=== PATIENT | male | born 1965 | race Caucasian/White ===

== ENCOUNTER 2020-03-01 10:43 | Outpatient (REF) | payer BC, SELFPAY ==
[2020-03-01 13:09] LABS: MANUAL DIFF FLAG NO
[2020-03-01 13:11] LABS: Basophils Percent Auto 0.6 % (0-2); Eosinophils Absolute Auto 0.2 X10*3/uL (0.0-0.4); Eosinophils Percent Auto 3.3 % (0-4); Hematocrit 44.2 % (42-52); Hemoglobin 14.5 g/dl (14.0-18.0); Imm Gran Abs Auto 0.06 X10*3/uL (0.00-0.03); Imm Gran Pct Auto 0.9 % (0.0-0.4); Lymphocytes Absolute Auto 1.8 X10*3/uL (1.2-4.9); Lymphocytes Percent Auto 27.2 % (20-40); Mean Corpuscular HGB Conc 32.8 g/dl (31.0-36.0); Mean Corpuscular Hemoglobin 30.5 pg (27.0-33.0); Mean Corpuscular Volume 93.1 fL (80-98); Mean Platelet Volume 9.6 fL (9.4-12.4); Monocytes Absolute Auto 0.6 X10*3/uL (0.1-1.2); Monocytes Percent Auto 8.5 % (2-11); Neutrophils Absolute Auto 3.9 X10*3/uL (2.0-8.3); Neutrophils Percent Auto 59.5 % (45-73); Platelet Count 312 X10*3/uL (160-400); Red Blood Count 4.75 X10*6/uL (4.60-5.80); Red Cell Distribution Width 12.6 % (11.0-16.0); White Blood Count 6.6 X10*3/uL (4.8-10.8)
[2020-03-01 13:27] LABS: Glucose Urine UA NEG (NEG); Leukocyte Esterase Urine NEG (NEG); Nitrite Urine NEG (NEG); PH 7.5 (5.0-8.0); Specific Gravity - Urine 1.015 (1.005-1.025); Urine Blood NEG (NEG); Urine Ketones NEG (NEG); Urine Protein NEG (NEG-TRACE)
[2020-03-01 13:29] LABS: Appearance Urine CLEAR; Color Urine STRAW
[2020-03-01 13:37] LABS: Alanine Aminotransferase 56 U/L (0-40); Albumin Level 4.7 g/dL (3.5-5.0); Alkaline Phosphatase 53 U/L (39-117); Anion Gap 13 (12-20); Aspartate Amino Transferase 23 U/L (5-37); Bilirubin Total 0.5 mg/dL (0.0-1.0); Blood Urea Nitrogen 19 mg/dL (9-16); Calcium 9.5 mg/dL (8.4-10.2); Carbon Dioxide 28 mmol/L (22-29); Chloride 98 mmol/L (96-108); Cholesterol 305 mg/dL; Estimated Glomerular Filt Rate > 60; Glucose Fasting 101 mg/dL (60-99); HDL Cholesterol 49 mg/dL; LDL Cholesterol Calculated 215 mg/dl; Potassium 4.3 mmol/l (3.3-5.1); Sodium 135 mmol/L (135-145); Total Protein 7.5 g/dL (6.5-8.0); Triglycerides 209 mg/dL
[2020-03-01 14:00] LABS: Prostate Specific Antigen Scr 0.63 ng/mL (<0.05-4.0)
== END 2020-03-01 10:44 | disposition home or self-care (01) ==
LOC: HO.10HDL 10:43
PROVIDERS: PCP Internal Medicine; Visit Provider Internal Medicine
DX: Z00.00 Encounter for general adult medical examination without abnormal findings (principal); I10 Essential (primary) hypertension; E78.00 Pure hypercholesterolemia, unspecified
CPT/HCPCS: 36415; 80053; 80061; 81003; 84153; 85025

== ENCOUNTER 2021-09-24 09:39 | Outpatient (REF) | payer BC, SELFPAY ==
[2021-09-24 10:33] LABS: MANUAL DIFF FLAG NO
[2021-09-24 10:48] LABS: Basophils Percent Auto 0.6 % (0-2); Eosinophils Absolute Auto 0.1 X10*3/uL (0.0-0.4); Eosinophils Percent Auto 2.4 % (0-4); Hematocrit 41.2 % (42.0-52.0); Hemoglobin 14.1 g/dl (14.0-18.0); Imm Gran Abs Auto 0.02 X10*3/uL (0.00-0.03); Imm Gran Pct Auto 0.4 % (0.0-0.4); Lymphocytes Absolute Auto 1.5 X10*3/uL (1.2-4.9); Lymphocytes Percent Auto 27.6 % (20-40); Mean Corpuscular HGB Conc 34.2 g/dl (31.0-36.0); Mean Corpuscular Hemoglobin 31.3 pg (27.0-33.0); Mean Corpuscular Volume 91.4 fL (80.0-98.0); Mean Platelet Volume 9.6 fL (9.4-12.4); Monocytes Absolute Auto 0.5 X10*3/uL (0.1-1.2); Neutrophils Absolute Auto 3.1 x10*3/uL (2.0-8.3); Platelet Count 266 X10*3/uL (160-400); Red Blood Count 4.51 X10*6/uL (4.60-5.80); Red Cell Distribution Width 12.7 % (11.0-16.0); White Blood Count 5.3 X10*3/uL (4.8-10.8)
[2021-09-24 11:02] LABS: Alanine Aminotransferase 48 U/L (0-40); Albumin Level 4.8 g/dL (3.5-5.0); Alkaline Phosphatase 54 U/L (39-117); Anion Gap 12 (12-20); Aspartate Amino Transferase 25 U/L (5-37); Bilirubin Total 0.7 mg/dL (0.0-1.0); Blood Urea Nitrogen 17 mg/dL (9-16); Calcium 9.7 mg/dL (8.4-10.2); Carbon Dioxide 28 mmol/L (22-29); Chloride 101 mmol/L (96-108); Cholesterol 166 mg/dL; Estimated Glomerular Filt Rate > 60; Glucose Fasting 119 mg/dL (60-99); HDL Cholesterol 42 mg/dL; LDL Cholesterol Calculated 107 mg/dl; Potassium 4.2 mmol/L (3.3-5.1); Sodium 137 mmol/L (135-145); Total Protein 7.4 g/dL (6.5-8.0); Triglycerides 88 mg/dL
[2021-09-24 11:23] LABS: Prostate Specific Antigen Scr 0.46 ng/mL (<0.05-4.0)
== END 2021-09-24 09:40 | disposition home or self-care (01) ==
LOC: HO.10HDL 09:39
PROVIDERS: Visit Provider Internal Medicine
DX: Z00.00 Encounter for general adult medical examination without abnormal findings (principal); Z12.5 Encounter for screening for malignant neoplasm of prostate
CPT/HCPCS: 36415; 80053; 80061; 84153; 85025

== ENCOUNTER 2022-01-29 14:21 | Inpatient (IN) | payer OTHER, BC, SELFPAY ==
--- NOTE | ~2022-01-29 | CT_ITS ---
EXAMINATION: CT abdomen pelvis wo IV con CLINICAL INFORMATION: Reason for Exam L LQ pain, rectal bleed, rule out diverticulitis COMPARISON: No prior CT available for comparison. TECHNIQUE: Multidetector volumetric imaging was performed from the superior aspect of the liver through the pubic symphysis , noncontrasted study. Sagittal and coronal reformatted images were obtained on the technologist's workstation. This CT examination was performed using dose optimization techniques as appropriate, variously including the following: *Automated exposure control *Adjustment of mA and/or kV according to patient size (this includes techniques or standardized protocols for targeted exams where dose is matched to indication/reason for exam; i.e. extremities or head) *Use of iterative reconstruction technique DLP: 775 mGy-cm FINDINGS: LOWER THORAX: Included lung bases are clear. HEPATOBILIARY: No focal hepatic lesions. No biliary ductal dilatation. GALLBLADDER: Gallbladder unremarkable. SPLEEN: Spleen is normal in size. PANCREAS: No focal mass or ductal dilatation. STOMACH AND GASTROINTESTINAL TRACT: Stomach is grossly unremarkable. There is circumferential wall thickening to the descending colon along with mild pericolic fat stranding raising suspicion for acute colitis. This could be infection, inflammatory versus less likely neoplastic. There is no evidence of obstruction, abscess, fistula or other complications at this time. The transverse colon and the sigmoid colon otherwise are normal. No CT evidence of appendicitis. ADRENALS: No adrenal nodules. KIDNEYS/URETERS: No hydronephrosis, stones or solid mass lesions. URINARY BLADDER: Partially decompressed. PELVIC VISCERA: There is a short segment of the rectum about 3 cm which appears slightly more prominent, although could be impacted fecal material, cannot rule out mucosal lesion. This may require correlation with follow-up imaging or colonoscopy. PERITONEUM: No free air or fluid. LYMPH NODES: No lymphadenopathy. VASCULAR:Abdominal aorta normal in size, no aneurysm found. BONES, ABDOMINAL WALL AND SOFT TISSUES: Age-appropriate changes of the spine and skeletal system, no destructive osteolytic or osteosclerotic bone lesion found CT/CT abdomen pelvis wo IV con IMPRESSION: *There is circumferential wall thickening of the descending colon along with mild pericolic fat stranding, raising suspicion for ACUTE COLITIS. This could be infection, inflammatory versus less likely neoplastic or ischemic, except for mild aortic calcification, there is no CT evidence of significant vascular disease, no pneumatosis.. There is no evidence of obstruction, abscess, fistula or other complications at this time. *There is a 3 cm segment of the rectum which appears somewhat prominent thickened, Perry image, although could be fecal impaction, cannot rule out rectal lesion, would recommend correlation with follow-up outpatient imaging such as barium enema or colonoscopy. (Referring physician staff is being called, to be alerted of the above findings and recommendations.) AJ
[2022-01-29 17:24] VITALS: BP 131/82; PULSE 70; RESP 16; TEMP 36.5; O2SAT 98; BMI 33.2
--- NOTE | 2022-01-29 17:35 | ED.ABDPAIN ---
HPI - Abdominal Pain General Chief Complaint: Abdominal Pain Stated Complaint: sent from Dr. acacia soler for dirviticulitis Time Seen by Provider: 01/29/22 20:30 Source: patient Mode of arrival: ambulatory Limitations: no limitations History of Present Illness HPI narrative: 56-year-old male who presents emergency department for evaluation of left lower quadrant pain which began at midnight. Pain was associated with nausea, vomiting and diarrhea. States the pain is a sharp pain which is been constant and mild to moderate intensity. Patient states that initially developed diarrhea which then turned into bright red and then dark stool. The patient states this is 1st incident of this type of pain and bloody diarrhea. He has been taking ibuprofen 4 pills in the morning once a day for lower back pain. He is not on any blood thinners. MD elicited complaint: abdominal pain Pertinent past history: none Onset (ago): hour(s) (12) Pain Consistency: constant Location: LLQ Severity: moderate Pain scale (0-10): 6 Quality: sharp Radiation: none Migration to: no migration Exacerbating factors: nothing Relieving factors: nothing Associated symptoms: nausea, vomiting and diarrhea (Bloody) Treatments prior to arrival: NSAIDs Related Data Allergies Allergy/AdvReac Type Severity Reaction Status Date / Time No Known Allergies Allergy Mild UNKNOWN Unverified 11/17/19 15:10 Review of Systems Review of Systems Yes all other systems are reviewed and are negative [facility] Past Medical History [facility] Narrative: Past medical history: Hypertension, sciatica, spinal stenosis of the neck. Social history: He denies tobacco use, he drinks alcohol once a week, he denies drug us Physical Exam ED Vital Signs: Vital Signs - 24 hr 01/29/22 17:24 Temperature 97.7 F Pulse Rate 70 Respiratory Rate 16 Blood Pressure 131/82 Pulse Oximetry 98 Oxygen Delivery Method Room Air BMI result Body Mass Index 33.2 Const General: cooperative and no acute distress Orientation/consciousness: oriented to person and oriented to place Limitations: no limitations HENMT Head: Yes normal to inspection, Yes normocephalic and Yes atraumatic Ears: external ears normal General nose exam: Normal external nose present Face and sinus: Yes normal facial exam Mouth: Normal oral and palatal mucosa present Throat: Yes posterior oropharynx normal Eyes General: appearance normal, both eyes and all related structures Pupils: Equal, round and reactive pupils present Neck Neck: Yes normal visual inspection, Yes no lymphadenopathy, Yes trachea midline and Yes supple Chest Chest palpation & inspection: normal inspection of the chest and normal palpation of entire chest wall Resp Effort & Inspection: normal respiratory effort and able to speak in complete sentences Auscultation: clear to auscultation bilaterally Cardio Rate: regular rate Rhythm: regular rhythm Heart sounds: S1 normal heart sound present, S2 normal heart sound present and no murmurs GI Inspection: Yes normal to inspection Palpation (GI): Soft to palpation, Tenderness to palpation present (GI) in the LLQ (Moderate) and no guarding Auscultation: normal bowel sounds General: Yes no CVA tenderness Back/Spine/Pelvis Back: no CVA tenderness Skin General skin exam: no rashes or lesions noted Neuro General: oriented to person and oriented to place Cranial nerves: Yes CN's II-XII intact bilaterally and Yes Equal, round and reactive pupils present Cognition (Neuro): normal cognition Motor exam (neuro): 5/5 motor strength present throughout Extrem General: Yes normal to inspection Psych Appearance: grossly normal Speech and movement: Normal speech and movement present Affect: normal affect Attitude: cooperative Thought process: Normal thought process present Thought content: Normal thought content present Course Course Course Narrative: RME: 56-year-old male who presents emergency department for evaluation of left lower quadrant pain which began at midnight. The pain is a [id number] sharp pain which was associated with nausea, vomiting and diarrhea. Patient initially developed diarrhea which then turned into bright red and then dark stool. The patient states this is 1st incident of this type of pain and bloody diarrhea. He has been taking ibuprofen 4 pills in the morning once a day for lower back pain. I ordered a CBC, CMP, PT/INR, PTT, lactic acid, lipase and urinalysis. Will obtain a CT scan of the abdomen pelvis without IV contrast. 2034: Laboratory evaluation: CBC elevated 13,800 with 74 neutrophils and 15 lymphocytes. H&H was normal 15.3 and 45.1. PT/INR and PTT were normal. CMP and lipase were normal. Radiology evaluation: CT scan of the abdomen pelvis without IV contrast, radiology reading: IMPRESSION: *There is circumferential wall thickening of the descending colon along with mild pericolic fat stranding, raising suspicion for ACUTE COLITIS. This could be infection, inflammatory versus less likely neoplastic or ischemic, except for mild aortic calcification, there is no CT evidence of significant vascular disease, no pneumatosis.. There is no evidence of obstruction, abscess, fistula or other complications at this time. *There is a 3 cm segment of the rectum which appears somewhat prominent thickened, Perry image, although could be fecal impaction, cannot rule out rectal lesion, would recommend correlation with follow-up outpatient imaging such as barium enema or colonoscopy. (Referring physician staff is being called, to be alerted of the above findings and recommendations.) AJ Dictated By:Antonino Gray MDSigned By:<Electronically signed by Antonino Gray MD in OV> Given the patient's CT scan finding I will treat the patient for possible infectious colitis with Levaquin 750 mg IV and Flagyl 500 mg IV. Patient was also ordered to get morphine 4 mg IV and normal saline x1 L. I will discuss admission with the covering hospitalist. MDM - Abdominal Pain Lab Data Result diagrams: 01/29/22 17:56 01/29/22 17:56 Labs: Lab Results 01/29/22 01/29/22 01/29/22 Range/Units 17:56 17:56 17:56 WBC 13.8 H (4.8-10.8) X10*3/uL RBC 5.00 (4.60-5.80) X10*6/uL Hgb 15.3 (14.0-18.0) g/dl Hct 45.1 (42.0-52.0) % MCV 90.2 (80.0-98.0) fL MCH 30.6 (27.0-33.0) pg MCHC 33.9 (31.0-36.0) g/dl RDW 12.6 (11.0-16.0) % Plt Count 273 (160-400) X10*3/uL MPV 9.3 L (9.4-12.4) fL Immature Gran % (Auto) 1.3 H (0.0-0.4) % Neut % (Auto) 74.7 H (45-73) % Lymph % (Auto) 15.7 L (20-40) % [place] % (Auto) 6.7 (2-11) % Eos % (Auto) 1.2 (0-4) % Baso % (Auto) 0.4 (0-2) % Lymph # (Auto) 2.2 (1.2-4.9) X10*3/uL [place] # (Auto) 0.9 (0.1-1.2) X10*3/uL Eos # (Auto) 0.2 (0.0-0.4) X10*3/uL Baso # (Auto) 0.1 (0.0-0.2) X10*3/uL Abs Immat Gran (auto) 0.18 H (0.00-0.03) X10*3/uL Absolute Neuts (auto) 10.3 H (2.0-8.3) x10*3/uL Absolute Nucleated RBC 0.000 (0.0-0.012) X10*3/uL Nucleated RBC % (auto) 0.0 (0.0-0.2) /100WBC PT 11.3 (10.0-13.1) SEC INR 1.0 (0.9-1.1) APTT 31.1 (26.0-36.4) SEC Sodium 136 (135-145) mmol/L Potassium 3.7 (3.3-5.1) mmol/L Chloride 97 (96-108) mmol/L Carbon Dioxide 28 (22-29) mmol/L Anion Gap 15 (12-20) BUN 16 (9-16) mg/dL Creatinine 0.80 (0.5-1.4) mg/dL Estim Creat Clear Calc 124.2 Estimated GFR > 60 Random Glucose 96 (60-115) mg/dL Lactic Acid (0.5-2.0) mmol/L Calcium 10.1 (8.4-10.2) mg/dL Total Bilirubin 0.8 (0.0-1.0) mg/dL AST 18 (5-37) U/L ALT 35 (0-40) U/L Alkaline Phosphatase 60 (39-117) U/L Total Protein 7.6 (6.5-8.0) g/dL Albumin 4.9 (3.5-5.0) g/dL Lipase 20 (8-78) U/L 01/29/22 Range/Units 17:56 WBC (4.8-10.8) X10*3/uL RBC (4.60-5.80) X10*6/uL Hgb (14.0-18.0) g/dl Hct (42.0-52.0) % MCV (80.0-98.0) fL MCH (27.0-33.0) pg MCHC (31.0-36.0) g/dl RDW (11.0-16.0) % Plt Count (160-400) X10*3/uL MPV (9.4-12.4) fL Immature Gran % (Auto) (0.0-0.4) % Neut % (Auto) (45-73) % Lymph % (Auto) (20-40) % [place] % (Auto) (2-11) % Eos % (Auto) (0-4) % Baso % (Auto) (0-2) % Lymph # (Auto) (1.2-4.9) X10*3/uL [place] # (Auto) (0.1-1.2) X10*3/uL Eos # (Auto) (0.0-0.4) X10*3/uL Baso # (Auto) (0.0-0.2) X10*3/uL Abs Immat Gran (auto) (0.00-0.03) X10*3/uL Absolute Neuts (auto) (2.0-8.3) x10*3/uL Absolute Nucleated RBC (0.0-0.012) X10*3/uL Nucleated RBC % (auto) (0.0-0.2) /100WBC PT (10.0-13.1) SEC INR (0.9-1.1) APTT (26.0-36.4) SEC Sodium (135-145) mmol/L Potassium (3.3-5.1) mmol/L Chloride (96-108) mmol/L Carbon Dioxide (22-29) mmol/L Anion Gap (12-20) BUN (9-16) mg/dL Creatinine (0.5-1.4) mg/dL Estim Creat Clear Calc Estimated GFR Random Glucose (60-115) mg/dL Lactic Acid 1.4 (0.5-2.0) mmol/L Calcium (8.4-10.2) mg/dL Total Bilirubin (0.0-1.0) mg/dL AST (5-37) U/L ALT (0-40) U/L Alkaline Phosphatase (39-117) U/L Total Protein (6.5-8.0) g/dL Albumin (3.5-5.0) g/dL Lipase (8-78) U/L Discharge Plan Discharge Clinical Impression: Acute colitis
[2022-01-29 18:01] LABS: MANUAL DIFF FLAG NO
[2022-01-29 18:13] LABS: Basophils Absolute Auto 0.1 X10*3/uL (0.0-0.2); Basophils Percent Auto 0.4 % (0-2); Eosinophils Absolute Auto 0.2 X10*3/uL (0.0-0.4); Eosinophils Percent Auto 1.2 % (0-4); Hematocrit 45.1 % (42.0-52.0); Hemoglobin 15.3 g/dl (14.0-18.0); Imm Gran Abs Auto 0.18 X10*3/uL (0.00-0.03); Imm Gran Pct Auto 1.3 % (0.0-0.4); Lymphocytes Absolute Auto 2.2 X10*3/uL (1.2-4.9); Lymphocytes Percent Auto 15.7 % (20-40); Mean Corpuscular HGB Conc 33.9 g/dl (31.0-36.0); Mean Corpuscular Hemoglobin 30.6 pg (27.0-33.0); Mean Corpuscular Volume 90.2 fL (80.0-98.0); Mean Platelet Volume 9.3 fL (9.4-12.4); Monocytes Absolute Auto 0.9 X10*3/uL (0.1-1.2); Monocytes Percent Auto 6.7 % (2-11); Neutrophils Absolute Auto 10.3 x10*3/uL (2.0-8.3); Neutrophils Percent Auto 74.7 % (45-73); Platelet Count 273 X10*3/uL (160-400); Red Cell Distribution Width 12.6 % (11.0-16.0); White Blood Count 13.8 X10*3/uL (4.8-10.8)
[2022-01-29 18:16] LABS: Prothrombin Time 11.3 SEC (10.0-13.1)
[2022-01-29 18:18] LABS: Lactic Acid 1.4 mmol/L (0.5-2.0)
[2022-01-29 18:19] LABS: Partial Thromboplastin Time 31.1 SEC (26.0-36.4)
[2022-01-29 18:21] LABS: Alanine Aminotransferase 35 U/L (0-40); Albumin Level 4.9 g/dL (3.5-5.0); Alkaline Phosphatase 60 U/L (39-117); Anion Gap 15 (12-20); Aspartate Amino Transferase 18 U/L (5-37); Bilirubin Total 0.8 mg/dL (0.0-1.0); Blood Urea Nitrogen 16 mg/dL (9-16); Calcium 10.1 mg/dL (8.4-10.2); Carbon Dioxide 28 mmol/L (22-29); Chloride 97 mmol/L (96-108); Creatinine Clr Calc Pharmacy 124.2; Estimated Glomerular Filt Rate > 60; Glucose Random 96 mg/dL (60-115); Lipase 20 U/L (8-78); Potassium 3.7 mmol/L (3.3-5.1); Sodium 136 mmol/L (135-145); Total Protein 7.6 g/dL (6.5-8.0)
--- OUTSIDE RECORDS SUMMARY | 2022-01-29 20:59 | XMS_ITS ---
:1965 Author Organization Department [facility] Address [address] [place] [address] Support Name Relationship Address Phone BRIAN FLORES Unavailable [address] [place] [address] [place] [address] BRIAN FLORES Unavailable [address] [place] [address] Insurance Providers: All historical and current Section Date Range: From patient's date of to the date document was created.This section includes the names of all active insurance providers for the patient. Insurance Type of Plan Start of End of Group Member Insurance Policy P atient's Provider Coverage Name Policy Policy Number ID Provider's Fleming's Relationship Coverage Coverage Telephone Name to Policy Number Fleming [place] PREFERRED BASIC Mar 14 [id number] [phone] MEGAN FLORES PATIENT FEP PROVIDER FAMIL [phone] OTHY ORGANIZAT Y ION (PPO) [place]-F PRESCRIPT FEP Mar 02 [id number] [phone] STEPHY MEGAN THOMAS PATIENT EP BCBS ION CAREM [phone] OTHY ARK Selected Encounter This section includes the information on record at ID for the Encounter. Date/Time Encounter Type Encounter Description Reason Provider Source Jan 02, 2022 02:08 Outpatient Encounter ADMIN PAT ACTIVTIES PM (MASNONCT) IHE Encounter Template Text not used by ID Plan of Treatment: Future Appointments (+ 6 months) and Future Tests (+/- 45 days) The Plan of Treatment section includes future care activities for the patient from all VA treatmentfacilities. This section includes future appointments and future orders which are active, pending orscheduled.Future Appointments This section includes appointments that were scheduled to occur 6 months from the date of the Encounter, up to a maximum of 20 appointments. The data comes from all [facility]. Appointment Date/Time Appointment Type Appointment Facili ty Name Jan 30, 2022 11:00 AM AMBUL[facility]ORY - [facility]INE [facility] Active, Pending, and Scheduled Orders This section includes a listing of several types of active, pending, and scheduled orders, including clinic medications orders, diagnostic test orders, procedure orders and consult orders; where the start date of the order is 45 days before the date of the Encounter or 45 days after the date of the Encounter. The data comes from all [facility]. Test Date/Time Test Type Test Details Facility Name Jan 20, 2022 12:00 AM Laboratory - CBC BLOOD (LAV[facility]BLOOD) [facility] Jan 20, 2022 12:00 AM Laboratory - BASIC METABOLIC PANEL [facility] Chemistry Order (fasting) BLOOD [facility] (SST-SERUM) Jan 20, 2022 12:00 AM Laboratory - LIPID PANEL FASTING [facility] Chemistry Order BLOOD (SST[facility]SERUM[facility] Jan 20, 2022 12:00 AM Laboratory - LIVER FUNCTION BLOOD [facility] (SST[facility]UM[facility] Jan 20, 2022 12:00 AM Laboratory - HEMOGLOBIN A1C PANEL [facility] Chemistry Order BLOOD (LAV-BLOOD) [facility] Jan 20, 2022 12:00 AM Laboratory - TSH BLOOD (SST-SERUM) [facility] Chemistry Order [place] [facility] Jan 20, 2022 12:00 AM Laboratory - THYROID T4 FREE(FT4) [facility] Order BLOOD (SST-SERUM) [facility] Social History: Smoking Status (Most current) and Tobacco Use (All prior to encounter date) This section includes the most current, and the historical, smoking and tobacco-related health factors from the ID facility where the Encounter took place.Current Smoking Status This section includes the most current smoking, or tobacco-related health factor, from the ID facility where the Encounter took place. Date/Time Current Smoking Status Comment Facility May 14, 2020 03:00 PM ID-TOBACCO FORMER USER [facility] Tobacco Use History This section includes a history of the smoking, or tobacco- related health factors, that were collected on or before the date of the Encounter. The data comes from the ID facility where the Encounter took place. Date/Time Smoking Status/Tobacco Use Comment Nalini mayberry May 14, 2020 03:00 PM VA-TOBACCO QUIT 5 TO < 15 YRS [facility] Encounter Notes: All associated encounter notes This section contains the clinical notes associated to the Encounter. Date/Time Encounter Note(s) Provider Source Jan 02, 2022 02:08 PM ADMINISTRATIVE NOTE: ELIZABETH WAYNE [facility] LOCAL TITLE: CCC: SCHEDULING ADMINISTRATION [facility] STANDARD TITLE: ADMINISTRATIVE NOTE DATE OF NOTE: JAN 02, 2022@14:08:43 ENTRY DATE: JAN 02, 2022@14:17:55 AUTHOR: ELIZABETH WAYNE EXP COSIGNER: URGENCY: STATUS: COMPLETED CCC: SCHEDULING ADMINISTRATION Has ADDENDA Type of call: SCHEDULING. PCMM Provider Info: LOCAL - [facility] ([id number]) PACT: NO PACT 7 (Focus: Primary Care Only) Primary Care Provider: DEBRA MOSHER PH ONE:[phone] Take Down Sorter: CLINTON CRESPO PHONE:[phone] Clinical Associate: AMOS MONTERO PHONE:[phone] Glass Silverer: MONIQUE VERMA PH ONE: Clinical POC: Take Down Sorter CLINTON CRESPO PHONE:[phone] Administrative POC: Glass Silverer MOINQUE VERMA PHONE: *PATIENT called in for PAYTON FLORES ([id number]) . The following identifiers were used to verify th is patient: SSN. Contact Caller Response: ADM CALL RESOLVED Caller Area: *[place] Comments: Patient is calling stating that he just saw his PCP Iron Ledbetter at [facility] and was wondering if he was still needing to be seen. Please call him back at Author: ELIZABETH WAYNE Evaluation/Management Code: HC PRO PHONE CALL 5- 10 MIN ([phone]). Starting at: 01/02/2022 @ 2:08:43 PM Ending at: 01/02/2022 @ 2:17:15 PM Length: 8 minutes. Chief Complaint: Not applicable to call. Class Code: Other specified counseling. /es/ ELIZABETH WAYNE Signed: 01/02/2022 14:17 Receipt Acknowledged By: * AWAITING SIGNATURE * AMOS MONTERO 01/02/2022 14:39 /rowena/ MERRILL HARRELL ADVANCED BRAIDED RUG MAKER 01/02/2022 ADDENDUM STATUS: COMPLETED AMSA CALLED AND LEFT VOICEMAIL REQUESTING A CALL BACK. /rowena/ MERRILL HARRELL ADVANCED BRAIDED RUG MAKER Signed: 01/02/2022 14:40
--- OUTSIDE RECORDS SUMMARY | 2022-01-29 20:59 | XMS_ITS ---
:1965 Author Organization [facility] Address [address] [address] Care Team Providers Name Role Phone NO MD, LMKyle Primary Care Physician Unavailable Encounter [facility] Financial Number Sravani Freehold [id number] Date(s): 05/15/21 - 05/17/[address] [address] Discharge Disposition: Home Social History Social History Type Response
--- OUTSIDE RECORDS SUMMARY | 2022-01-29 20:59 | XMS_ITS ---
:1965 Author Organization Department [facility] Address [address] [place] [address] Support Name Relationship Address Phone BRIAN FLORES Unavailable [address] [place] [address] [place] [address] BRIAN FLORES Unavailable [address] [facility] [place] [address] Insurance Providers: All historical and current Section [...] Fleming BC[place] PREFERRED BASIC Mar 14 [id number] [phone] MEGAN FLORES PATIENT FEP PROVIDER FAMIL 2001 [id number] OTHY ORGANIZAT Y ION (PPO) [employer]-F PRESCRIPT FEP Mar 02 [id number] [phone] STEPHY MEGAN THOMSA PATIENT EP BCBS ION CAREM 2010 0 [phone] 1 OTHY ARK Selected Encounter This section includes the information on record at NE for the Encounter. Date/Time Encounter Type Encounter Description Reason Provider Source Jan 02, 2022 09:54 Outpatient Encounter PRIMARY CARE/MEDICINE AM IHE Encounter Template Text not used by NE Plan of Treatment: Future Appointments (+ 6 [...] 20 appointments. The data comes from all [facility]. Appointment Date/Time Appointment Type Appointment Facili ty Name Jan 30, 2022 11:00 AM AMBULATORY - [facility]IC[facility] Active, Pending, and Scheduled Orders This section includes a listing of several types of active, pending, and scheduled orders, including clinic medications orders, diagnostic test orders, procedure orders and consult orders; where the start date of the order is 45 days before the date of the Encounter or 45 days after the date of the Encounter. The data comes from all [facility]. Test Date/Time Test Type Test Details Facility Name Jan 20, 2022 12:00 AM Laboratory - CBC BLOOD ([facility]BLOOD) [facility] Order SP [facility] Jan 20, 2022 12:00 AM Laboratory - BASIC METABOLIC PANEL [facility] Chemistry [facility] ([facility]ing[facility] (SST-SERUM) Jan 20, 2022 12:00 AM Laboratory - LIPID PANEL [facility] Chemistry Order BLOOD (SST-SERUM) [facility] Jan 20, 2022 12:00 AM Laboratory - LIVER FUNCTION [facility]OD [facility] Chemistry Order (SST-SERUM) [facility] Jan 20, 2022 12:00 AM Laboratory - HEMOGLOBIN A1C PANEL [facility] Chemistry Order BLOOD (LAV-BLOOD) [facility] Jan 20, 2022 12:00 AM Laboratory - TSH BLOOD (SST-SERUM) [facility] Chemistry [facility] Jan 20, 2022 12:00 AM Laboratory - THYROID T4 [facility](FT4[facility] Chemistry Order BLOOD (SST-SERUM) [facility] Social History: Smoking Status (Most current) and Tobacco Use (All prior to encounter date) This section includes the most current, and the historical, smoking and tobacco-related health factors from the NE facility where the Encounter took place.Current Smoking Status This section includes the most current smoking, or tobacco-related health factor, from the NE facility where the Encounter took place. Date/Time Current Smoking Status Comment Facility May 14, 2020 03:00 PM VA-TOBACCO FORMER USER [facility] Tobacco Use History This section includes a history of the smoking, or tobacco- related health factors, that were collected on or before the date of the Encounter. The data comes from the NE facility where the Encounter took place. Date/Time Smoking Status/Tobacco Use Comment Nalini mayberry May 14, 2020 03:00 PM [facility]CO [facility]IT 5 [facility] < [facility] Encounter Notes: All associated encounter notes This section contains the clinical notes associated to the Encounter. Date/Time Encounter Note(s) Provider Source Jan 02, 2022 09:54 AM ADMINISTRATIVE NOTE: MONIQUE VERMA [facility] LOCAL TITLE: ADMINISTRATIVE RECALL NOTE [facility] STANDARD TITLE: ADMINISTRATIVE NOTE DATE OF NOTE: JAN 02, 2022@09:54 ENTRY DATE: JAN 02, 2022@09:54:19 AUTHOR: MONIQUE VERMA EXP COSIGNER: URGENCY: STATUS: COMPLETED PTCSCH Unable to contact patient: Attempts to contact: 1st attempt: Left voicemail 2nd attempt: Letter mailed Disposition onJan 16, 2022 3rd attempt: 4th attempt: /rowena/ MERRILL HARRELL ADVANCED FERMENTATION ENGINEER Signed: 01/02/2022 09:54 Jan 02, 2022 09:54 AM LETTERS: MONIQUE VERMA [facility] W STRN LOCAL TITLE: PATIENT LETTER (T) [facility] STANDARD TITLE: LETTERS DATE OF NOTE: JAN 02, 2022@09:54 ENTRY DATE: JAN 02, 2022@09:54:55 AUTHOR: MONIQUE VERMA EXP COSIGNER: URGENCY: STATUS: COMPLETED DEPARTMENT OF [facility] Toll Free Number Primary Care Telephone Assistance can be reached at extension [phone] [facility] scheduling can be reac hed at extension [phone] [facility] scheduling can be natasha ched at ext [phone] JAN 02, 2022 PAYTON FLORES [address] [place] [id number] Dear PAYTON FLORES Thank you for choosing the [facility] ([place]) [facility] as your primary choice for health care. We want to assure you we are doing everything possible to sched e Veterans for their [place] medical care appointments. Our records indicate you are due for an appointm ent in PRIMARY CARE. We value you as a patient, and are concerned abo ut your overall health. Future Clinic Visits No data available Patients are encouraged to see their Primary Car e Doctor to maintain your health care needs. If you would like to be seen, please contact [facility] at ([phone] ext [phone] or [phone]) to sc hedule an appointment. We hope to hear from you within 14 days of recei pt of this letter to schedule your follow up appointment. If you have any further questions or would like more information regarding [place] health care benefits, please call toll free at 2 [phone]), visit the [place] website at [email or web address]/healthbenefit [email or web address], or contact your local [place] Medical Center. Thank you for your service to our nation, and we look forward to hearing from you soon. Sincerely, [facility] em Sincerely, Your Primary Care Team [facility] [address] [facility] [address] [place] [address] [place] [address] [phone] [facility] [address] [place] [address] [place] [address] [phone] [facility] [address] [facility],[address] [place] [address] [place] [address]
--- OUTSIDE RECORDS SUMMARY | 2022-01-29 20:59 | XMS_ITS ---
:1965 Author Organization Department [facility] Address [address] [place] [id number] Support Name Relationship Address Phone BRIAN FLORES Unavailable [address] [address] BRIAN FLORES Unavailable [address] [address] Insurance Providers: All historical and current Section [...] [place] PREFERRED BASIC Mar 14 [id number] [phone] MEGAN FLORES PATIENT FEP PROVIDER FAMIL [phone] OTHY ORGANIZAT Y ION (PPO) CAREMARK-F PRESCRIPT FEP Mar 02 [id number] [phone] STEPHY MEGAN THOMAS PATIENT EP BCBS ION CAREM [phone] OTHY ARK Selected Encounter This section includes the information on record at [facility] for the Encounter. Date/Time Encounter Type Encounter Description Reason Provider Source May 13, 2021 07:50 Outpatient Encounter PRIMARY CARE/MEDICINE AM IHE Encounter Template Text not used by [facility] Social History: Smoking Status (Most current) and Tobacco Use (All prior to encounter date) This section includes the most current, and the historical, smoking and tobacco-related health factors from the [facility] facility where the Encounter took place.Current Smoking Status This section includes the most current smoking, or tobacco-related health factor, from the [facility] facility where the Encounter took place. Date/Time Current Smoking Status Comment Facility May 14, 2020 03:00 PM VA-TOBACCO FORMER USER [facility] Tobacco Use History This section includes a history of the smoking, or tobacco- related health factors, that were collected on or before the date of the Encounter. The data comes from the [facility] facility where the Encounter took place. Date/Time Smoking Status/Tobacco Use Comment Nalini mayberry May 14, 2020 03:00 PM VA-TOBACCO QUIT 5 TO < 15 YRS [facility] Encounter Notes: All associated encounter notes This section contains the clinical notes associated to the Encounter. Date/Time Encounter Note(s) Provider Source May 13, 2021 07:50 AM MEDICATION MGT NOTE: TOM GUERRIER [facility] LOCAL TITLE: OUTPATIENT MEDICATION REQUEST [facility] STANDARD TITLE: MEDICATION MGT NOTE DATE OF NOTE: MAY 13, 2021@07:50 ENTRY DATE: MAY 13, 2021@07:50:30 AUTHOR: TOM GUERRIER EXP COSIGNER: URGENCY: STATUS: COMPLETED OUTPATIENT MEDICATION REQUEST Has ADDENDA * Medication Request Date of Request: Apr Is this a New Medication? No Active and Recently Outpatient Medicatio ns (including Supplies): Active Outpatient Medications Status 1) SILDENAFIL CITRATE 50MG TAB TAKE ONE TABLET B Y MOUTH ACTIVE ONCE DAILY NEEDED TAKE 1 HOUR PRIOR TO SEX UAL ACTIVITY Active Non-VA Medications Status 1) Non-VA HCTZ 12.5/LISINOPRIL 10MG TAB 2 TABLET S BY ACTIVE MOUTH TWICE DAILY 2) Non-VA LORATADINE 10MG TAB 10MG BY MOUTH ONCE DAILY ACTIVE 3 Total Medications The following actions were performed: Placed in Provider Folder SILDENAFIL TAB 50MG TAKE ONE TABLET BY MOUTH ONCE DAILY NEEDED * *TAKE 1 HOUR PRIOR TO SEXUAL ACTIVITY *Please let patient know lala t this request may take up to 72 hours to process.* /rowena/ TOM GUERRIER RN MSN REGISTERED NURSE Signed: 05/13/2021 07:51 Receipt Acknowledged By: * AWAITING SIGNATURE * DEBRA MOSHER 05/23/2021 ADDENDUM STATUS: COMPLETED FORWARD TO PCP /es/ TOM GUERRIER RN MSN REGISTERED NURSE Signed: 05/23/2021 07:54 Receipt Acknowledged By: * AWAITING SIGNATURE * DEBRA MOSHER
--- OUTSIDE RECORDS SUMMARY | 2022-01-29 20:59 | XMS_ITS ---
:1965 Author Care Team Providers Name Role Phone SHAHIDA HSU MD Primary Care Provider [phone] Allergies Code Code System Name Reaction Severity Status Onset NKDA ? Medications Name Status Start Date Stop Date ? ? hydrochlorothiazide Active ? Not availabl e lisinopril Active ? Not available Problems None recorded. Procedures None recorded. Results Lab Results Date Name Specimen Result Interpretation Description Value Range Status Address ? 01/31/2020 SARS CoV 2 RNA ? Covid-19, [place] ? ? Final [facility] Reference (COVID-19), QL, L aboratories: [address]-PCR, [address], Respiratory [place] Specimen Past Encounters None recorded. Social History Tobacco Smoking Status Former Smoker Vaccine List None recorded. Plan of Care Reminders Provider Appointments None recorded. ? ? Lab None recorded. ? ? Referral None recorded. ? ? Procedures None recorded. ? ? Surgeries None recorded. ? ? Imaging None recorded. ? ? Vitals None recorded.
--- OUTSIDE RECORDS SUMMARY | 2022-01-29 20:59 | XMS_ITS ---
:1965 Author Organization Department [facility] Address [address] [place] [address] Support Name Relationship Address Phone BRIAN FLORES Unavailable [address] [place] [address] [place] [address] BRIAN FLORES Unavailable [address] [facility] [place] [address] Insurance Providers: All historical and current Section [...] Fleming [place] PREFERRED BASIC Mar 14 [id number] [phone] MEGAN FLORES PATIENT FEP PROVIDER FAMIL [phone] OTHY ORGANIZAT Y ION (PPO) CAREMARK-F PRESCRIPT FEP Mar 02 [id number] [phone] STEPHY MEGAN THOMAS PATIENT EP BCBS ION CAREM [phone] 1 OTHY ARK Selected Encounter This section includes the information on record at [facility] for the Encounter. Date/Time Encounter Type Encounter Description Reason Provider Source Jan 15, 2022 11:37 Outpatient Encounter PRIMARY CARE/MEDICINE AM I[facility] Encounter Template Text not used by [facility] Plan of Treatment: Future Appointments (+ 6 [...] 20 appointments. The data comes from all [facility]. Appointment Date/Time Appointment Type Appointment Facili ty Name Jan 30, 2022 11:00 AM [facility] Active, Pending, and Scheduled Orders This section includes a listing of several types of active, pending, and scheduled orders, including clinic medications orders, diagnostic test orders, procedure orders and consult orders; where the start date of the order is 45 days before the date of the Encounter or 45 days after the date of the Encounter. The data comes from all [facility]. Test Date/Time Test Type Test Details Facility Name Jan 20, 2022 12:00 AM Laboratory - CBC BLOOD (LAV[facility]BLOOD) [facility] Order SP [facility] Jan 20, 2022 12:00 AM Laboratory - BASIC METABOLIC PANEL [facility] Chemistry Order (fasting) [facility] (SST-SERUM) Jan 20, 2022 12:00 AM Laboratory - LIPID PANEL [facility] Chemistry Order BLOOD (SST-SERUM) [facility] Jan 20, 2022 12:00 AM Laboratory - LIVER FUNCTION BLOOD [facility] [place] Chemistry Order (SST-SERUM) [facility] Jan 20, 2022 12:00 AM Laboratory - HEMOGLOBIN A1C PANEL [facility] T[facility] Chemistry Order BLOOD (LAV-BLOOD) [facility] Jan 20, 2022 12:00 AM Laboratory - TSH BLOOD (SST-SERUM) [facility] Chemistry Order [facility] Jan 20, 2022 12:00 AM Laboratory - THYROID T4 FREE(FT4) [facility] Order BLOOD (SST-SERUM) [facility] Social History: Smoking Status (Most current) and Tobacco Use (All prior to encounter date) This section includes the most current, and the historical, smoking and tobacco-related health factors from the [facility] facility where the Encounter took place.Current Smoking Status This section includes the most current smoking, or tobacco-related health factor, from the [facility] facility where the Encounter took place. Date/Time Current Smoking Status Comment Facility May 14, 2020 03:00 PM VA-TOBACCO FORMER USER [facility] Tobacco Use History This section includes a history of the smoking, or tobacco- related health factors, that were collected on or before the date of the Encounter. The data comes from the [facility] facility where the Encounter took place. Date/Time Smoking Status/Tobacco Use Comment Nalini mayberry May 14, 2020 03:00 PM [facility]-TOBACCO QUIT 5 TO < 15 YRS [facility] Encounter Notes: All associated encounter notes This section contains the clinical notes associated to the Encounter. Date/Time Encounter Note(s) Provider Source Jan 15, 2022 11:37 AM ADMINISTRATIVE NOTE: POLO MATHIAS [facility] LOCAL TITLE: ADMINISTRATIVE NOTE [facility] STANDARD TITLE: ADMINISTRATIVE NOTE DATE OF NOTE: JAN 15, 2022@11:37 ENTRY DATE: JAN 15, 2022@11:37:46 AUTHOR: POLO MATHIAS EXP COSIGNER: URGENCY: STATUS: COMPLETED ADMINISTRATIVE NOTE Has ADDENDA per caren calling to schedule a routine follow up appt. please call /rowena/ POLO MATHIAS LEAD FORMULA MIXER Signed: 01/15/2022 11:38 Receipt Acknowledged By: 01/15/2022 12:47 /rowena/ MERRILL HARRELL ADVANCED FORMULA MIXER 01/15/2022 ADDENDUM STATUS: COMPLETED SPOKE TO SCHEDULED FOR JANUARY 30, 2022. /rowena/ MERRILL HARRELL ADVANCED FORMULA MIXER Signed: 01/15/2022 12:51
--- OUTSIDE RECORDS SUMMARY | 2022-01-29 20:59 | XMS_ITS | Continuity of Care Document ---
:1965 Author Organization [facility] Care Team Providers Name Role Phone [facility] Unavailable Unavailable Problems Combined list of problems from Department of Defense and Veterans Affairs facilities. It does not include entries that were removed or entered in error. Problem Status Onset Problem Type Date of Comments Source Date Resolution Chronic Active Condition [facility] Post-Traumatic [facility] Stress Disorder [facility] [id number]) Degenerative Active Condition May 14 [facility] arthritis [place] Entered By: SYD MARIA Comment: of the spine Erectile Active Condition [facility] Dysfunction ([facility] [place] [id number]) [facility] HTN - Hypertension Active Condition V A CN[facility]L [facility] ([facility] [id number]) [facility] Hyperlipidemia Active Condition [facility] TRL [facility] ([facility] [id number]) [facility] Medications Combined list of outpatient medications from Department of Defense and Veterans Affairs facilities. Medications provided include 1) outpatient medications from the last 15 months, and 2) patient-reported medications. Medication Details Route Status Patient Prescription Prescription Last Ordering Order Source Instructions Expires Number Dispense Provider Date Date HYDROCHLORO TAKE TWO ORAL ACTIVE [place], [place] THIAZIDE TABLETS DEBRA Acosta 2020 CNTRL 12.5MG/NAZ BY MOUTH [facility] NOPRIL 10MG TWICE [place] TAB DAILY [facility] LORATADINE TAKE ONE ORAL ACTIVE [place], [place] 10MG TAB TABLET DEBRA Acosta 2020 CN[facility] BY MOUTH [facility] ONCE [place] DAILY [facility] sildenafiL TAKE ONE Active 05/24/2022 [id number] SULROGERV AN, 12/09/ Northam 50 MG ORAL TABLET 2 DEBRA Acosta 2021 pton TAB BY MOUTH [facility] ONCE DAILY NEEDED TAKE 1 HOUR PRIOR TO SEXUAL ACTIVITY sildenafiL TAKE ONE 05/15/2021 [id number] SULLI DIONNE, 03/16/ Northam 50 MG ORAL TABLET 2 DEBRA Acosta 2021 [place] TAB BY MOUTH [facility] ONCE DAILY NEEDED TAKE 1 HOUR PRIOR TO SEXUAL ACTIVITY SILDENAFIL TAKE ONE ORAL ACTIVE 05/24/2022 [id number] LUX TRUONG, 05/29/ [place] CITRATE TABLET 2 DEBRA Acosta 2021 CNTRL 50MG TAB BY MOUTH [facility] ONCE [place] DAILY [facility] TAKE 1 HOUR PRIOR TO SEXUAL ACTIVITY SILDENAFIL TAKE ONE ORAL DISCONT 05/15/2021 [id number] LUX TRUONG, 05/14/ [facility] CITRATE TABLET INUED 2 DEBRA Acosta 2020 CNTRL 50MG TAB BY MOUTH [facility] ONCE [place] DAILY [facility] TAKE 1 HOUR PRIOR TO SEXUAL ACTIVITY Immunizations Combined list of available immunizations from the Department of Defense and Veterans Affairs facilities. Immunization Series Date Administered Site Reaction Lot [facility] atus Comments Source Given By Number Code Decaler INFLUENZA, complet [facility] UNSPECIFIED 2019 ed CN TRL FORMULATION WS TRN [place] [facility] Encounters Combined list of: 1) Encounters from Department of Veterans Affairs facilities going back up to the last 18 months. 2) Encounters from the Department of Defense facilities going back up to 280 months. Location Location Encounter Encounter Reason Attending ADM DC Stat us Disposition Source Details Type Number For Provider Date Date Visit Outpatient [id number] 12/17 [facility] [id number] [facility] [facility] Outpatient [id number] 05/13 [facility] Encounter [id number] [facility] [place] [facility] Outpatient [id number] 01/02 [facility] Encounter [id number] [facility] [place] [facility] Outpatient [id number] 01/02 [facility] Encounter [id number] [facility] [place] [facility] Outpatient [id number] 01/15 [facility] Encounter [id number] [facility] [place] [facility] Social History Combined list of available smoking, tobacco, and other social history [facility]. Social History Type Response Date Comment Source Tobacco smoking VA-TOBACCO FORMER 05/14/2020 [facility] status [place] [facility] History of tobacco VA-TOBACCO QUIT 5 TO 05/14/2020 V A CNTRL [facility] use < [address] [place] [facility] This section is an DoD empty social history section. Plan of Care List of future care activities from Department of Veterans Affairs facilities. Additional future care activities may be listed in the Assessment and Plan section. Date/Time Care Activity Care Activity Detail Facility 01/30/2022 AMBULATORY - MEDICINE AMBULATORY - MEDICINE [place] [facility] [place] [facility]
--- NOTE | 2022-01-29 21:47 | PHA.MEDREC ---
Pharmacy Consult ? Medication Reconciliation Pharmacy has completed the medication reconciliation. Pt states that he takes lisinopril/hctz 20/25 daily not bid
[2022-01-29] MEDS: 0.9 % Sodium Chloride 1,000 ML 999 ML IV (21:55)
[2022-01-29] MEDS: levoFLOXacin/D5W 750 MG/150 ML PIGGYBACK 100 MG IV (21:56)
[2022-01-29] MEDS: metroNIDAZOLE/NS 500 MG/100 ML PIGGYBACK 100 MG IV (21:56)
--- NOTE | 2022-01-29 22:15 | PM.IMHP ---
History of Present Illness Date of Service: 01/29/22 Chief Complaint: abdominal pain 56-year-old male with past medical history of hypertension, as well as hyperlipidemia presents to the hospital with complaints of abdominal pain x1 day. Patient reports that he started experiencing left lower quadrant pain the night prior to presentation, pain 5/10, nonradiating, intermittent, associated with multiple episodes of bloody bowel movements. Patient initially reports that he had soft stools with bright blood, followed by multiple episodes of blood per rectum with no stool just mucus. Patient denies any previous similar episode. Denies any fever or chills. No nausea or vomiting, no recent illness. Denies any chest pain, no shortness of breath. No lower extremity edema. Patient reports that he had a colonoscopy about 3 years ago with normal results. He does report a family history of inflammatory bowel disease in his grandmother and aunt. On arrival to the ED patient hemodynamically stable with no significant abnormal vitals Labs are significant for WBC count of 13.8, labs otherwise unremarkable Abdominal pelvic CT shows circumferential wall thickening of the descending colon along with mild pericolic fat stranding raising suspicion for acute colitis. Infectious versus inflammatory less likely neoplastic or ischemic. There is no CT evidence of vascular disease, no pneumatosis. Patient also has a 3 cm segment of the rectum which appears somewhat prominent thickened, could be fecal impaction versus rectal lesion. patient given IV antibiotics and will be admitted for further management Review of Systems Review of Systems: Yes all other systems are reviewed and are negative [facility] Medical History (Updated 01/30/22 @ 05:48 by Nehemias Espinosa MD) Hyperlipidemia Hypertension Family History (Updated 01/30/22 @ 05:45 by Nehemias Espinosa MD) Other Ulcerative colitis Surgical History (Updated 01/30/22 @ 05:45 by Nehemias Espinosa MD) History of shoulder surgery Social History Advance Directives: No Advance Directives Information Provided: Yes Meds Allergies Allergy/AdvReac Type Severity Reaction Status Date / Time No Known Allergies Allergy Mild UNKNOWN Unverified 11/17/19 15:10 Active Medications: Current Medications Acetaminophen (Acetaminophen 325 Mg Tablet) 650 mg PO Q6H PRN PRN Reason: Pain, Mild (Pain Scale 1-3) Atorvastatin Calcium (Atorvastatin Calcium 20 Mg Tablet) 20 mg PO DAILY ANUSHA Levofloxacin (Levaquin) 750 mg in 150 mls @ 100 mls/hr IV ONCE ONE Stop: 01/29/22 22:15 Last Admin: 01/29/22 21:56 Dose: 100 mls/hr Lactated Ringer's (Lr) 1,000 mls @ 100 mls/hr IVCONT .Q10H [facility] Morphine Sulfate (Morphine Sulfate 4 Mg/Ml Cartridge) 4 mg IVPUSH Q4H PRN; Protocol PRN Reason: Pain, Severe (Pain Scale 7-10) Non-Formulary Medication (Lisinopril-Hydrochlorothiazide) 1 tab PO DAILY [facility] Ondansetron HCl (Ondansetron Hcl 4 Mg/2 Ml Vial) 4 mg IVPUSH Q8H PRN PRN Reason: Nausea and Vomiting Pharmacy Consult (Consult Rx Perform Med Rec) 1 each MISCELLANE ONCE PRN PRN Reason: Consult order Sodium Chloride (0.9 % Sodium Chloride Flush 3 Ml Syringe) 3 ml IVFLUSH QSHIFT [facility] Home Medications Medication Instructions Recorded Confirmed Last Taken Type atorvastatin 20 mg tablet 1 tab PO DAILY 01/29/22 01/29/22 01/29/22 History lisinopril 20 1 tab PO DAILY 01/29/22 01/29/22 01/29/22 History mg-hydrochlorothiazide 25 mg tablet Physical Exam Vital Signs and Narrative: Vital Signs: Last Vital Signs Temp 97.7 F 01/29/22 17:24 Pulse 70 01/29/22 17:24 Resp 16 01/29/22 17:24 BP 131/82 01/29/22 17:24 Pulse Ox 98 01/29/22 17:24 O2 Del Method 01/29/22 17:24 BMI result Body Mass Index 33.2 Const: General: cooperative and no acute distress Orientation/consciousness: patient oriented x3 Eyes: General: appearance normal, both eyes and all related structures Resp: Effort & Inspection: normal respiratory effort Auscultation: clear to auscultation bilaterally Cardio: Rate: regular rate Rhythm: regular rhythm GI: Other: patient is tender in the left lower quadrant of the abdomen, no rebound or guarding Palpation (GI): Soft to palpation Auscultation: normal bowel sounds Skin: General skin exam: no rashes or lesions noted Neuro: General: patient oriented x3 Cognition (Neuro): normal cognition Extrem: General: Yes normal to inspection and Yes no pedal edema Results Labs CBC and Chem 7: 01/29/22 17:56 01/29/22 17:56 Labs: Laboratory Results - last 24 hr 01/29/22 01/29/22 01/29/22 17:56 17:56 17:56 MCV 90.2 MCH 30.6 MCHC 33.9 RDW 12.6 Plt Count 273 MPV 9.3 L Immature Gran % (Auto) 1.3 H Neut % (Auto) 74.7 H Lymph % (Auto) 15.7 L Martin % (Auto) 6.7 Eos % (Auto) 1.2 Baso % (Auto) 0.4 Lymph # (Auto) 2.2 Martin # (Auto) 0.9 Eos # (Auto) 0.2 Baso # (Auto) 0.1 Abs Immat Gran (auto) 0.18 H Absolute Neuts (auto) 10.3 H Absolute Nucleated RBC 0.000 Nucleated RBC % (auto) 0.0 PT 11.3 INR 1.0 APTT 31.1 Anion Gap 15 Estim Creat Clear Calc 124.2 Estimated GFR > 60 Random Glucose 96 Lactic Acid Calcium 10.1 Total Bilirubin 0.8 AST 18 ALT 35 Alkaline Phosphatase 60 Total Protein 7.6 Albumin 4.9 Lipase 20 01/29/22 17:56 MCV MCH MCHC RDW Plt Count MPV Immature Gran % (Auto) Neut % (Auto) Lymph % (Auto) Martin % (Auto) Eos % (Auto) Baso % (Auto) Lymph # (Auto) Martin # (Auto) Eos # (Auto) Baso # (Auto) Abs Immat Gran (auto) Absolute Neuts (auto) Absolute Nucleated RBC Nucleated RBC % (auto) PT INR APTT Anion Gap Estim Creat Clear Calc Estimated GFR Random Glucose Lactic Acid 1.4 Calcium Total Bilirubin AST ALT Alkaline Phosphatase Total Protein Albumin Lipase Imaging Radiologist's Impressions: Impressions Abdomen/Pelvis CT 01/29/22 19:15 IMPRESSION: *There is circumferential wall thickening of the descending colon along with mild pericolic fat stranding, raising suspicion for ACUTE COLITIS. This could be infection, inflammatory versus less likely neoplastic or ischemic, except for mild aortic calcification, there is no CT evidence of significant vascular disease, no pneumatosis.. There is no evidence of obstruction, abscess, fistula or other complications at this time. *There is a 3 cm segment of the rectum which appears somewhat prominent thickened, Perry image, although could be fecal impaction, cannot rule out rectal lesion, would recommend correlation with follow-up outpatient imaging such as barium enema or colonoscopy. (Referring physician staff is being called, to be alerted of the above findings and recommendations.) AJ Assessment and Plan (1) Rectal lesion: Status: Acute (2) Bright red blood per rectum: Status: Acute (3) Acute colitis: Status: Acute Plan this is a 56-year-old male with past medical history of hypertension, hyperlipidemia presents to the hospital with abdominal pain found to have acute colitis # acute colitis - infectious versus inflammatory - GI panel, as well as C diff pending - given patient's age, as well as family history of ulcer colitis, IBD cannot be ruled out specially given the bleeding - at this time will treat with IV antibiotics - GI consulted - will hold off starting steroids pending GI recommendation # bright red blood per rectum - possibly secondary to colitis, infectious versus inflammatory - hemoglobin stable - will follow CBC # rectal lesion - seen on CT of the abdomen pelvis - GI consult for possible sigmoidoscopy/ colonoscopy - reports colonoscopy in the past normal # hypertension - stable - continue antihypertensives # HYPERLIPIDEMIA - continue statin DVT prophylaxis: Early ambulation given patient's need for IV antibiotics given the acute colitis with bleed patient require minimum tonight inpatient hospital stay for further management and evaluation as well as IV antibiotics Quality Stroke Does the patient have a stroke diagnosis?: No VTE Prior VTE?: No VTE Risk Level:: Medical - moderate - high VTE Device Contraindication: N/A - Device Ordered VTE Drug Contraindication: Treatment Not Indicated
[2022-01-29] MEDS: Lactated Ringers 1,000 ML 100 ML IVCONT (23:07)
[2022-01-30 05:46] VITALS: BP 125/82; PULSE 62; RESP 18; TEMP 36.6; O2SAT 97
[2022-01-30 06:34] LABS: MANUAL DIFF FLAG NO
[2022-01-30 06:36] LABS: Basophils Percent Auto 0.4 % (0-2); Eosinophils Absolute Auto 0.2 X10*3/uL (0.0-0.4); Eosinophils Percent Auto 2.1 % (0-4); Hematocrit 41.4 % (42.0-52.0); Imm Gran Abs Auto 0.05 X10*3/uL (0.00-0.03); Imm Gran Pct Auto 0.6 % (0.0-0.4); Lymphocytes Absolute Auto 1.4 X10*3/uL (1.2-4.9); Lymphocytes Percent Auto 15.7 % (20-40); Mean Corpuscular HGB Conc 33.8 g/dl (31.0-36.0); Mean Corpuscular Hemoglobin 30.6 pg (27.0-33.0); Mean Corpuscular Volume 90.4 fL (80.0-98.0); Monocytes Absolute Auto 0.8 X10*3/uL (0.1-1.2); Monocytes Percent Auto 8.4 % (2-11); Neutrophils Absolute Auto 6.6 x10*3/uL (2.0-8.3); Neutrophils Percent Auto 72.8 % (45-73); Platelet Count 226 X10*3/uL (160-400); Red Blood Count 4.58 X10*6/uL (4.60-5.80); Red Cell Distribution Width 12.8 % (11.0-16.0)
[2022-01-30 06:48] LABS: Anion Gap 12 (12-20); Blood Urea Nitrogen 16 mg/dL (9-16); Calcium 9.4 mg/dL (8.4-10.2); Carbon Dioxide 28 mmol/L (22-29); Chloride 99 mmol/L (96-108); Creatinine Clr Calc Pharmacy 124.2; Estimated Glomerular Filt Rate > 60; Glucose Random 112 mg/dL (60-115); Potassium 3.9 mmol/L (3.3-5.1); Sodium 135 mmol/L (135-145)
[2022-01-30 07:04] VITALS: BP 126/85; PULSE 60; RESP 16; TEMP 36.4; O2SAT 97
[2022-01-30 07:43] LABS: Appearance Urine Clear; Color Urine Yellow; Glucose Urine UA Negative (Negative); Leukocyte Esterase Urine Negative (Negative); Nitrite Urine Negative (Negative); Specific Gravity - Urine 1.015 (1.005-1.025); Urine Blood Negative (Negative); Urine Ketones Negative (Negative); Urine Protein Negative (Neg-Trace)
--- NOTE | 2022-01-30 08:05 | PC.NURSE ---
dr. puckett at bedside pt aware of plan of care.
[2022-01-30 08:37] LABS: CDiff Gene PCR NEGATIVE (Negative)
[2022-01-30] MEDS: 0.9 % Sodium Chloride Flush 3 ML SYRINGE IVFLUSH ×2 (09:20→18:23)
[2022-01-30] MEDS: Lactated Ringers 1,000 ML 100 ML IVCONT ×2 (09:20→18:22)
--- NOTE | 2022-01-30 09:22 | PM.EVENT ---
Event Note Date of Service: 01/30/22 Event Note: GI consult dictated Presentation is c/w acute infectious colitis. Await stool studies. He is feeling better, starting clear liquids. Rectal changes on ct are unlikely to be cancer, as he had prior colonoscopy in 2019. He is agreeable to scheduling outpatient colonoscopy after this acute episode resolves.
[2022-01-30 09:24] VITALS: BP 119/79; PULSE 57; RESP 16; TEMP 36.9; O2SAT 97
[2022-01-30] MEDS: hydroCHLOROthiazide 25 MG TABLET PO (09:26)
[2022-01-30] MEDS: Atorvastatin Calcium 20 MG TABLET PO (09:26)
[2022-01-30] MEDS: lisinopriL 20 MG TABLET PO (09:26)
--- NOTE | 2022-01-30 09:31 | PC.NURSE ---
pt is a/o x 4 no sob/fransisco noted lungs - cta. speaks in full sentences. heart sounds regular. abd soft and non-tender, bx + 4 quads. skin pink warm dry no edema noted. pt aware of plan of care. denies any pain/disc at this time.
--- NOTE | 2022-01-30 11:25 | P.PNIM_ITS ---
Subjective Subjective Date of Service: 01/30/22 Interval History: f/u abdominal pain, rectal bleed interval history: pain is better, no further pain Review of Systems no n/v, no pain and no fever Physical Exam Vital Signs: Vital Signs: Last Vital Signs Temp 98.4 F 01/30/22 09:24 Pulse 57 01/30/22 09:24 Resp 16 01/30/22 09:24 BP 119/79 01/30/22 09:24 Pulse Ox 97 01/30/22 09:24 O2 Del Method 01/30/22 09:24 BMI result Body Mass Index 33.2 General: AO X 3, no acute distress Resp: CTA bilateral CVS: S1,S2,RRR GI: +BS, NT, no distention Skin: No rash Neuro: motor grossly intact Psych: appropriate affect Objective Data Active Medications Acetaminophen (Acetaminophen 325 Mg Tablet) 650 mg PO Q6H PRN PRN Reason: Pain, Mild (Pain Scale 1-3) Atorvastatin Calcium (Atorvastatin Calcium 20 Mg Tablet) 20 mg PO DAILY [facility] Last Admin: 01/30/22 09:26 Dose: 20 mg Documented By: SCOC Hydrochlorothiazide (Hydrochlorothiazide 25 Mg Tablet) 25 mg PO DAILY [facility] Last Admin: 01/30/22 09:26 Dose: 25 mg Documented By: CARSONOC Lactated Ringer's (Lr) 1,000 mls @ 100 mls/hr IVCONT .Q10H [facility] Last Admin: 01/30/22 09:20 Dose: 100 mls/hr Documented By: CARSONOC Lisinopril (Lisinopril 20 Mg Tablet) 20 mg PO DAILY [facility] Last Admin: 01/30/22 09:26 Dose: 20 mg Documented By: SCOC Morphine Sulfate (Morphine Sulfate 4 Mg/Ml Cartridge) 4 mg IVPUSH Q4H PRN; Protocol PRN Reason: Pain, Severe (Pain Scale 7-10) Ondansetron HCl (Ondansetron Hcl 4 Mg/2 Ml Vial) 4 mg IVPUSH Q8H PRN PRN Reason: Nausea and Vomiting Pharmacy Consult (Consult Rx Perform Med Rec) 1 each MISCELLANE ONCE PRN PRN Reason: Consult order Sodium Chloride (0.9 % Sodium Chloride Flush 3 Ml Syringe) 3 ml IVFLUSH QSHIFT [facility] Last Admin: 01/30/22 09:20 Dose: 3 ml Documented By: SCOC Labs CBC & Chem 7: 01/30/22 06:09 01/30/22 06:09 Labs: Laboratory Results - last 24 hr 01/29/22 01/29/22 01/29/22 17:56 17:56 17:56 MCV 90.2 MCH 30.6 MCHC 33.9 RDW 12.6 Plt Count 273 MPV 9.3 L Immature Gran % (Auto) 1.3 H Neut % (Auto) 74.7 H Lymph % (Auto) 15.7 L Pope % (Auto) 6.7 Eos % (Auto) 1.2 Baso % (Auto) 0.4 Lymph # (Auto) 2.2 Pope # (Auto) 0.9 Eos # (Auto) 0.2 Baso # (Auto) 0.1 Abs Immat Gran (auto) 0.18 H Absolute Neuts (auto) 10.3 H Absolute Nucleated RBC 0.000 Nucleated RBC % (auto) 0.0 PT 11.3 INR 1.0 APTT 31.1 Anion Gap 15 Estim Creat Clear Calc 124.2 Estimated GFR > 60 Random Glucose 96 Lactic Acid Calcium 10.1 Total Bilirubin 0.8 AST 18 ALT 35 Alkaline Phosphatase 60 Total Protein 7.6 Albumin 4.9 Lipase 20 Urine Color Urine Appearance Urine pH Ur Specific [place] Urine Protein Urine Glucose (UA) Urine Ketones Urine Blood Urine Nitrite Ur Leukocyte Esterase C. difficile Tox B Gene 01/29/22 01/30/22 01/30/22 17:56 06:09 06:09 MCV 90.4 MCH 30.6 MCHC 33.8 RDW 12.8 Plt Count 226 MPV 9.0 L Immature Gran % (Auto) 0.6 H Neut % (Auto) 72.8 Lymph % (Auto) 15.7 L Pope % (Auto) 8.4 Eos % (Auto) 2.1 Baso % (Auto) 0.4 Lymph # (Auto) 1.4 Pope # (Auto) 0.8 Eos # (Auto) 0.2 Baso # (Auto) 0.0 Abs Immat Gran (auto) 0.05 H Absolute Neuts (auto) 6.6 Absolute Nucleated RBC 0.000 Nucleated RBC % (auto) 0.0 PT INR APTT Anion Gap 12 Estim Creat Clear Calc 124.2 Estimated GFR > 60 Random Glucose 112 Lactic Acid 1.4 Calcium 9.4 D Total Bilirubin AST ALT Alkaline Phosphatase Total Protein Albumin Lipase Urine Color Urine Appearance Urine pH Ur Specific [place] Urine Protein Urine Glucose (UA) Urine Ketones Urine Blood Urine Nitrite Ur Leukocyte Esterase C. difficile Tox B Gene 01/30/22 01/30/22 07:34 07:34 MCV MCH MCHC RDW Plt Count MPV Immature Gran % (Auto) Neut % (Auto) Lymph % (Auto) Pope % (Auto) Eos % (Auto) Baso % (Auto) Lymph # (Auto) Pope # (Auto) Eos # (Auto) Baso # (Auto) Abs Immat Gran (auto) Absolute Neuts (auto) Absolute Nucleated RBC Nucleated RBC % (auto) PT INR APTT Anion Gap Estim Creat Clear Calc Estimated GFR Random Glucose Lactic Acid Calcium Total Bilirubin AST ALT Alkaline Phosphatase Total Protein Albumin Lipase Urine Color Yellow Urine Appearance Clear Urine pH 7.0 Ur Specific [place] 1.015 Urine Protein Negative Urine Glucose (UA) Negative Urine Ketones Negative Urine Blood Negative Urine Nitrite Negative Ur Leukocyte Esterase Negative C. difficile Tox B Gene NEGATIVE Assessment and Plan (1) Bright red blood per rectum: Status: Acute (2) Rectal lesion: Status: Acute (3) Acute colitis: Status: Acute Plan 56-year-old male with past medical history of hypertension, hyperlipidemia presents to the hospital with abdominal pain found to have acute colitis #? acute colitis--suspect infectious, started on Abx with levaquin and flagyl last night.. continue. GI recommend further work up with colonoscopy/egd on outpatient basis -IVF, pain meds #? bright red blood per rectum -? possibly secondary to? colitis, infectious versus inflammatory -? hemoglobin stable -? will follow CBC-- -Outpatient GI follow up #? rectal lesion -? seen on CT of the abdomen pelvis -? GI consult for possible sigmoidoscopy/ colonoscopy -colonoscopy on outpatient basis #? hypertension -? stable -? continue antihypertensives #? HYPERLIPIDEMIA -? continue statin ?DVT prophylaxis:? Early ambulation ?given patient's need for IV antibiotics given the acute colitis with bleed patient require minimum tonight inpatient hospital stay for further management and evaluation as well as IV antibiotics Quality Stroke Does the patient have a stroke diagnosis?: No VTE Prior VTE?: No VTE Risk Level:: Medical - moderate - high VTE Device Contraindication: N/A - Device Ordered VTE Drug Contraindication: Treatment Not Indicated
[2022-01-30 11:36] VITALS: BP 119/79; PULSE 55; RESP 18; TEMP 36.5; O2SAT 97
[2022-01-30 11:45] LABS: Campylobacter Not Detected (Not Detect.); Plesiomonas shigelloides Not Detected (Not Detect.); Salmonella Not Detected (Not Detect.); Vibrio Not Detected (Not Detect.); Vibrio Cholerae Not Detected (Not Detect.); Yersinia enterocolitica Not Detected (Not Detect.)
[2022-01-30 11:46] LABS: Adenovirus F 40/41 Not Detected (Not Detect.); Astrovirus Not Detected (Not Detect.); Cryptosporidium Not Detected (Not Detect.); Cyclospora cayetanensis Not Detected (Not Detect.); E. coli EAEC Not Detected (Not Detect.); E. coli EPEC Not Detected (Not Detect.); E. coli ETEC Not Detected (Not Detect.); E. coli STEC Not Detected (Not Detect.); Entamoeba histolytica Not Detected (Not Detect.); Giardia lamblia Not Detected (Not Detect.); Norovirus GI/GII Not Detected (Not Detect.); Rotavirus A Not Detected (Not Detect.); Sapovirus Not Detected (Not Detect.); Shigella sp./EIEC Not Detected (Not Detect.)
--- NOTE | 2022-01-30 12:42 | MHC.CM.PN ---
PT REPORTS HE LIVES AT HOME WITH HIS AND IS INDEPENDENT WITH CARE PT DENIES USING DME OR BEING CONNECTED WITH HOME/COMMUNITY SERVICES PT REPORTS HE WAS SUPPOSED TO HAVE A FIRST APPT WITH A [facility] TODAY HE WILL RESCHEDULE PT REPORTS HE IS COVID VAX WITH [employer] HE HAS NO HCP, BUT REPORTS HE HAS THE PAPERWORK AND WILL COMPLETE IT AT HOME [facility] RIGHTS DELIVERED, COPY SENT TO [facility] CURRENT DC P[[facility] IS HOME WITH NO SERVICES TO TRANSPORT
[2022-01-30 12:55] LABS: COVID-19 Test Negative (Negative); IDNOW Serial# 9DB6401D
[2022-01-30] MEDS: metroNIDAZOLE 500 MG TABLET PO (17:38)
[2022-01-30 18:44] VITALS: BP 145/22; PULSE 57; RESP 18; TEMP 36.8; O2SAT 98
[2022-01-30] MEDS: levoFLOXacin 500 MG TABLET PO (20:16)
--- NOTE | 2022-01-31 00:45 | CONS_ITS ---
DATE OF SERVICE: 01/30/2022 REFERRING PHYSICIAN: Nehemias Espinosa REASON FOR CONSULTATION: Colitis. HISTORY OF PRESENT ILLNESS: The patient is a pleasant 56-year-old man who was admitted to the hospital after presenting to the emergency room last night with complaints of abdominal pain. Symptoms began on the day of admission with left lower quadrant pain, which radiated toward the midline. This was accompanied by stools with bright red blood and then just blood and mucus. There were no associated fevers, chills, nausea, or vomiting. He denies any recent ill contacts, suspect food ingestions, travel, or antibiotic usage. He has a history of undergoing colonoscopy in January 2019 for colon cancer screening, which was normal without any evidence of colitis. Evaluation in the Emergency Department including lab work showed a white blood cell count of 13.8. Imaging was obtained with an abdominal pelvic CT, which is reviewed. This is interpreted as showing changes consistent with acute colitis. A 3 cm segment in the rectum appeared somewhat prominent and thickened and a rectal lesion could not be ruled out. No rectal lesion was identified at the time of his colonoscopy 3 years ago. He has been treated with antibiotics and stool specimens have been obtained. PAST MEDICAL HISTORY: 1. Hypertension. 2. Hyperlipidemia. 3. Prediabetes. CURRENT MEDICATIONS: Current medication list is reviewed in the chart. ALLERGIES: THERE ARE NONE REPORTED. FAMILY HISTORY: This is positive for inflammatory bowel disease, but not in any primary family relatives. SOCIAL HISTORY: There is no current tobacco, alcohol, or substance abuse. REVIEW OF SYSTEMS: SKIN: No pruritus. HEENT: Negative. CARDIOPULMONARY: No shortness of breath or chest pain. GASTROINTESTINAL: As above. GENITOURINARY: Negative. NEUROPSYCHIATRIC: Negative. PHYSICAL EXAMINATION: GENERAL: Shows a pleasant male, lying in bed. VITAL SIGNS: Reviewed in electronic medical record and are stable. SKIN: Anicteric. HEENT: Shows no scleral icterus. NECK: Without lymphadenopathy or thyromegaly. LUNGS: Clear. HEART: shows regular rate and rhythm. S1, S2. No murmur. ABDOMEN: Soft without focal masses or tenderness. Bowel sounds are present. He does have some mild tenderness to palpation in the left lower quadrant. There is no guarding or rebound. EXTREMITIES: Without edema. Laboratory tests and imaging studies are reviewed. IMPRESSION: Colitis. This appears consistent with an acute infectious colitis. At this time, he appears to be improved and has had stool specimens obtained. He did receive 1 dose of antibiotics in the Emergency Department. I would recommend awaiting stool specimens and starting him on clear liquids as he appears to be improving. At this point, he would prefer to arrange outpatient colonoscopy after his discharge and this will be set up through the office. If he did have refractory symptoms, I would recommend a limited lower GI tract examination at this point while in the hospital. It is unlikely that the findings on CT scan represent any rectal lesion of significance as he did not have this on his previous colonoscopy. We discussed this today. Thanks for asking me to see him. I will follow him in the hospital with you. MD TIA Solares/RACHEL / [phone]
[2022-01-31] MEDS: metroNIDAZOLE 500 MG TABLET PO ×2 (01:03→09:21)
[2022-01-31] MEDS: Lactated Ringers 1,000 ML 100 ML IVCONT (03:46)
[2022-01-31 03:49] VITALS: BP 128/78; PULSE 55; RESP 16; TEMP 36.3; O2SAT 95
[2022-01-31 08:00] VITALS: BP 120/66; PULSE 57; RESP 18; TEMP 36.4; O2SAT 95
--- NOTE | 2022-01-31 08:40 | P.DS_ITS ---
DS: Providers Provider Date of Service: 01/31/22 Date of admission: 01/29/22 22:08 Primary care physician: Anand Vicente MD Consults: 01/29/22 22:07 Consult to Gastroenterology Routine Consulting Provider: Jass Nieto Reason for consultation: rectal lesion, acute colitis Has provider been notified: No DS: Diagnosis Discharge Diagnosis (1) Bright red blood per rectum: Status: Acute (2) Rectal lesion: Status: Acute (3) Acute colitis: Status: Acute DS: Summary Hospital Course Hospital Course: Chief Complaint:? abdominal pain ?56-year-old male with past medical history of hypertension, as well as hyperlipidemia presents to the hospital with complaints of abdominal pain x1 day.? Patient reports that he started experiencing left lower quadrant pain the night prior to presentation, pain 5/10, nonradiating, intermittent, associated with multiple episodes of bloody bowel movements.? Patient initially reports that he had soft stools with bright blood, followed by multiple episodes of? blood per rectum with no stool just mucus.? Patient denies any previous similar episode.? Denies any fever or chills.? No nausea or vomiting, no recent illness.? Denies any chest pain, no shortness of breath.? No lower extremity edema.? Patient reports that he had a colonoscopy about 3 years ago with normal result s.? He does report a family history of inflammatory bowel disease in his grandmother and aunt.? On arrival to the ED patient hemodynamically stable with no significant abnormal vitals Labs are significant for? WBC count of 13.8, labs otherwise unremarkable Abdominal pelvic CT shows? circumferential wall thickening of the descending colon along with mild? pericolic fat stranding raising suspicion for acute colitis.? Infectious versus inflammatory less likely neoplastic or ischemic.? There is no CT evidence of vascular disease, no pneumatosis.? Patient also has a 3 cm segment of the rectum which appears somewhat prominent thickened, could be fecal impaction versus rectal lesion. ?patient given IV antibiotics and will be admitted for further management Hospital course: Patient presented with abdominal pain, rectal bleeding, finding of colitis and rectal thickening. Rectal bleeding self resolved and no singificant blood lossa, colitis has been treated with antibiotics (Levaquin and Flagyl). Dr. Nieto evaluated him and recommended outpatient endoscopy/colonoscopy. Diet has been advanced to regular and tolerating. Time Spent with Patient Time attestation: Total time spent providing and/or coordinating discharge services: Discharge coordination time: Greater than 30 minutes Quality: Safe Use of Opioids Does Pt have an Active Cancer Diagnosis on the Problem List?: No Quality: Stroke Does the patient have a stroke diagnosis?: No Physical Exam Vital Signs: Vital Signs: Last Vital Signs Temp 97.5 F 01/31/22 08:00 Pulse 57 01/31/22 08:00 Resp 18 01/31/22 08:00 BP 120/66 01/31/22 08:00 Pulse Ox 95 01/31/22 08:00 O2 Del Method 01/31/22 08:00 BMI result Body Mass Index 33.2 DS: Data Data Completed and Pending Labs on day of discharge: Laboratory Results - last 24 hr 01/30/22 01/30/22 07:34 12:25 Stl C. cayetanensis PCR Not Detected Stool Rotavirus A PCR Not Detected Stl Adenov F 40/41 PCR Not Detected Stool Astrovirus (PCR) Not Detected Stool Campylobacter PCR Not Detected Stool Cryptosporidium PCR Not Detected Stl Sh Tox Pr E STEC PCR Not Detected Stool E coli O157 PCR Not applicable Stl Enterotoxigenic E PCR Not Detected Stool EPEC (PCR) Not Detected Stool EAEC (PCR) Not Detected Stl E. histolytica PCR Not Detected Stool Giardia Lamblia PCR Not Detected Stl P. shigelloides PCR Not Detected Stool Salmonella PCR Not Detected Stool Sapovirus (PCR) Not Detected Stl Shigella/EIEC PCR Not Detected St Y.enterocolitica PCR Not Detected Stool Vibrio (PCR) Not Detected Stl Vibrio cholerae PCR Not Detected Stl Norovirus GI/GII PCR Not Detected COVID-19 ([facility]) Negative COVID-19 Clin Com See Note Discharge Plan Discharge Anticipated Discharge Date/Time: 01/31/22 08:35 Patient Disposition: Home Health Service Discharge Diagnosis: rectal bleed, colitis, rectal lesion Referrals: Anand Vicente MD [Primary Care Provider] - 1 Week Discharge Medications: New metronidazole 500 mg Tablet 500 mg PO Q8H Qty: 15 0RF levofloxacin 500 mg Tablet 500 mg PO Q24H Qty: 5 0RF Continued atorvastatin 20 mg tablet 1 tab PO DAILY lisinopril-hydrochlorothiazide 20-25 mg tablet 1 tab PO DAILY Discharge Orders: Discharge Order (Routine); Ordered 01/31/22 Ordered By: Vinay Mlapah Diet: Advance to usual diet Activity on Discharge: As tolerated Stand Alone Forms: Patient Portal Discharge page Care Plan Goals: Full recovery from colitis, rectal bleed and rectal lesion Health Concerns: rectal bleed, colitis, rectal lesion Plan of Treatment: Take Levaquin and flagyl as tolerated as recommended and follow up with Dr. Nieto for colonoscopy and EGD--call office for appointent Assessment: As above
[2022-01-31] MEDS: lisinopriL 20 MG TABLET PO (09:21)
[2022-01-31] MEDS: Atorvastatin Calcium 20 MG TABLET PO (09:21)
[2022-01-31] MEDS: hydroCHLOROthiazide 25 MG TABLET PO (09:21)
--- NOTE | 2022-01-31 12:10 | MHC.CM.PN ---
EMR REVIEWED, PT MEDICALLY CLEARED FOR D/C HOME NO SERVICES W/PT'S FOR TRANSPORTATION.
== END 2022-01-31 13:19 | disposition home health service (06) | DRG 392 ==
LOC: HO.ED 21:31 → HO.EDOVER 22:19 → HO.S3 01-30 17:44
PROVIDERS: Admitting Provider Internal Medicine; Emergency Provider Emergency Medicine Emergency Medical Services; PCP Internal Medicine; Visit Provider Internal Medicine
DX: A09 Infectious gastroenteritis and colitis, unspecified (principal); K62.5 Hemorrhage of anus and rectum; E78.5 Hyperlipidemia, unspecified; I10 Essential (primary) hypertension; R73.03 Prediabetes; Z83.79 Family history of other diseases of the digestive system; Z20.822 Contact with and (suspected) exposure to COVID-19; Z87.891 Personal history of nicotine dependence; Z79.899 Other long term (current) drug therapy
CPT/HCPCS: 36415; 74176; 80048; 80053; 81003; 83605; 83690; 85025; 85610; 85730; 87493; 87507; 87635; 99285; J1956

== ENCOUNTER 2022-03-25 06:59 | Day surgery (SDC) | payer OTHER, BC, SELFPAY ==
--- NOTE | 2022-03-24 12:35 | HO.ANESPROP2 ---
HPI - Anesthesia Eval Consult details Narrative: 57yo M for Colonoscopy PMFSH Active Problems Active Problems: All Active Problems (Updated 02/08/22 @ 00:03 by Background Daemon) Rectal lesion (Acute) Acute colitis (Acute) Past Medical History Medical History (Updated 02/08/22 @ 00:03 by Background Daemon) Hyperlipidemia Hypertension Family History Family History (Updated 01/30/22 @ 05:46 by Nehemias Espinosa MD) Other Ulcerative colitis Surgical History Surgical History (Updated 01/30/22 @ 05:45 by Nehemias Espinosa MD) History of shoulder surgery Social History Social History Household Members: Spouse and Children Housing: House Do you presently have visiting nurse or other home services: No Alcohol intake: current Alcohol intake frequency: holidays/special occasions only Patient Tobacco Use Status: Former Tobacco user Tobacco use type: Cigarette service: Yes Current occupational status: employed Meds Allergies Allergy/AdvReac Type Severity Reaction Status Date / Time No Known Allergies Allergy Mild UNKNOWN Unverified 11/17/19 15:10 Home Medications Medication Instructions Recorded Confirmed Last Taken Type atorvastatin 20 mg tablet 1 tab PO DAILY 01/29/22 01/29/22 01/29/22 History lisinopril 20 1 tab PO DAILY 01/29/22 01/29/22 01/29/22 History mg-hydrochlorothiazide 25 mg tablet Exam Exam Date and Time: March 24, 2022 1235 Pertinent Lab Results Pertinent Lab Results: Laboratory Tests 01/30/22 01/30/22 06:09 06:09 WBC 9.0 Hgb 14.0 Hct 41.4 L Plt Count 226 Sodium 135 Potassium 3.9 Chloride 99 Carbon Dioxide 28 BUN 16 Creatinine 0.80 Assessment and Plan Assessment Anesthesia Assessment: Chart Reviewed
[2022-03-25 07:11] VITALS: BMI 33.2
[2022-03-25 07:15] VITALS: BP 174/79; PULSE 58; RESP 16; TEMP 36.3; O2SAT 97
[2022-03-25] MEDS: Lactated Ringers 1,000 ML 100 ML IVCONT (07:30)
--- NOTE | 2022-03-25 07:53 | HO.ANESPROP2 ---
HPI - Anesthesia Eval Consult details Narrative: 57 year old for colonoscopy screening PENDING SALE TO [facility] Active Problems Active Problems: All Active Problems (Updated 02/08/22 @ 00:03 by Background Cortney) Acute colitis (Acute) Rectal lesion (Acute) Past Medical History Medical History (Updated 02/08/22 @ 00:03 by Background Cortney) Hyperlipidemia Hypertension Family History Family History (Updated 01/30/22 @ 05:46 by Nehemias Espinosa MD) Other Ulcerative colitis Family history of problems with anesthesia: No Surgical History Surgical History (Updated 03/25/22 @ 07:08 by Nerissa Renae) H/O colonoscopy H/O: vasectomy History of shoulder surgery S/P tonsillectomy History of Problems with Anesthesia: No Social History Social History Household Members: Spouse and Children Housing: House Do you presently have visiting nurse or other home services: No Alcohol intake: current Alcohol intake frequency: a few times a month Patient Tobacco Use Status: Former Tobacco user Quit Date: 2011 Tobacco use type: Cigarette Cigarette Packs Per Day: 0.5 Cigarettes Per Day: 10.0 Years Smoked: 20 Smoked in Last 30 Days: No Use of substances other than those prescribed or required for medical reasons: No Are you DNR?: No Advance Directives: No Advance Directives Information Provided: Yes service: Yes Current occupational status: employed Meds Allergies Allergy/AdvReac Type Severity Reaction Status Date / Time No Known Allergies Allergy Mild UNKNOWN Verified 03/25/22 07:06 Active Medications: Current Medications Lactated Ringer's (Lr) 1,000 mls @ 100 mls/hr IVCONT .Q10H ANUSHA Last Admin: 03/25/22 07:30 Dose: 100 mls/hr Home Medications Medication Instructions Recorded Confirmed Last Taken Type atorvastatin 20 mg tablet 1 tab PO DAILY 01/29/22 03/25/22 01/29/22 History lisinopril 20 1 tab PO DAILY 01/29/22 03/25/22 03/24/22 History mg-hydrochlorothiazide 25 mg tablet Exam Exam Date and Time: March 25, 2022 0753 Height,Weight and Vital Signs: Height 5 ft 9 in Weight 102.058 kg Last Vital Signs Temp 97.4 F 03/25/22 07:15 Pulse 58 03/25/22 07:15 Resp 16 03/25/22 07:15 BP 174/79 H 03/25/22 07:15 Pulse Ox 97 03/25/22 07:15 O2 Del Method 03/25/22 07:15 Airway Mallampati Class: II TM Dist: >3cm Neck ROM: Full Heart: rrr Lungs: cta Assessment and Plan Assessment Anesthesia Assessment: Anesthesia Plan Discussed and Chart Reviewed Final Anesthetic Review Family History of Problems with Anesthesia: No History of Problems with Anesthesia: No NPO: Yes ASA Class: II Final Preanesthetic Review: No Changes in Pt Med Stat, Meds/Allgs Chart Reviewed and Consent Obtained/Reviewed Patient Risk: Low Procedure Risk: Low Anesthetic Plan Anesthetic Plan: MAC: Disposition: Standard PACU
--- NOTE | 2022-03-25 08:11 | MHC.SHP ---
Pre-Procedural Eval Section A Date of Service: 03/25/22 Section B Chief Complaint: Noninfective gastroenteritis and colitis, unspecif Details of Present Illness: see consult, no changes Relevant Family History (Specify if Yes): No Relevant Social History: None Present Medications: see Short Stay Collaborative assessment Medical History: No relevant PMH History of Previous Operations: No relevant previous surgery Allergies: Allergies Allergy/AdvReac Type Severity Reaction Status Date / Time No Known Allergies Allergy Mild UNKNOWN Verified 03/25/22 07:06 Review of Systems Sugical H&P ROS: Negative: Constitution, Cardiovascular, Respiratory, Neurological, Psychiatric, Hem-Onc, Allergic/Immunologic, Gastrointestinal, Genitourinary, Musculoskeletal, Integumentary, Endocrine and Eyes/Ears/Nose/Throat Exam Surgical H&P Exam: Normal: HEENT, Normal: Heart, Normal: Lungs, Normal: Extremities, Normal: Abdomen, Normal: Skin and Normal: Neurological Plan Diagnosis/Plan: Unchanged I have reviewed the history and physical and performed a pertinent physical examination on my patient. No changes have occurred unless specified. Time Spent With Patient Time: Total time managing care of this patient today ____ minutes.
--- NOTE | 2022-03-25 08:37 | PM.OP ---
Brief Operative Note Date of Service: 03/25/22 Pre-op diagnosis: colitis, abnl ct Post-op diagnosis: same Surgeon: Jass Nieto Anesthesia: MAC Was an Chemical Operations Specialist used for this Procedure?: No Estimated blood loss (mL): 2 Pathology: other Condition: stable Disposition: PACU
[2022-03-25 08:42] VITALS: BP 116/72; PULSE 68; RESP 16; TEMP 36.6; O2SAT 100
[2022-03-25 08:57] VITALS: BP 144/94; PULSE 62; RESP 18; TEMP 36.4; O2SAT 96
--- NOTE | 2022-03-25 11:10 | OP_ITS ---
SURGEON: Jass Nieto MD INDICATIONS: Colitis and abnormal CT scan of the colon. PREOPERATIVE DIAGNOSIS: POSTOPERATIVE DIAGNOSIS: PROCEDURE PERFORMED: Colonoscopy to the terminal ileum with biopsy. ESTIMATED BLOOD LOSS: COMPLICATIONS: ANESTHESIA: Monitored anesthesia care. ASSISTANTS: SPECIMENS: DESCRIPTION OF PROCEDURE: The history and physical was performed. The risks and benefits of the procedure were explained to the patient. Informed consent was obtained. The patient was placed in the left lateral decubitus position. A digital rectal exam was performed and was found to be normal. The Olympus pediatric video colonoscope was introduced into the rectum and advanced to the cecum without difficulty. The cecum was identified by transillumination, palpation, and identification of ileocecal valve. Examination was performed and the scope was removed. He tolerated the procedure well, and returned to recovery area in stable condition. The procedure was performed on 03/25/2022. FINDINGS: The terminal ileum was briefly examined and appeared normal. The visualized colonic mucosa was normal. The quality of the prep was good. No polyps were identified. There was no colitis identified. The rectum appeared normal with no mucosal thickening or evidence of malignancy. Retroflexed examination did show some small internal hemorrhoids. Random biopsies were obtained from the rectosigmoid. IMPRESSION: Normal colonoscopy. RECOMMENDATION: 1. Follow up biopsy results. 2. Repeat colonoscopy is recommended in 10 years for average risk individuals. MD TIA Solares/RACHEL / [id number]
== END 2022-03-25 09:21 | disposition home or self-care (01) ==
PROVIDERS: PCP Internal Medicine; Visit Provider Internal Medicine Gastroenterology
PROC: 0DJD8ZZ Inspection of Lower Intestinal Tract, Via Natural or Artificial Opening Endoscopic (ICD-10-PCS; CPT 45378; principal; 2022-03-25 08:10)
DX: K62.5 Hemorrhage of anus and rectum (principal); K52.9 Noninfective gastroenteritis and colitis, unspecified; K64.8 Other hemorrhoids; E78.5 Hyperlipidemia, unspecified; I10 Essential (primary) hypertension; R73.03 Prediabetes; Z79.899 Other long term (current) drug therapy; Z87.891 Personal history of nicotine dependence
CPT/HCPCS: 45380; 88305

== ENCOUNTER 2024-04-19 07:24 | Outpatient (REF) | payer OTHER, BC, SELFPAY ==
--- OUTSIDE RECORDS SUMMARY | 2024-04-19 07:27 | XMS_ITS | Encounter Summary ---
Author Name [facility] [place] [facility] [facility] [place] Address [address] [place] [id number] Care Team Providers Care Website Programmer Name Role Phone DEBRA MOSHER [facility] Insurance Providers: All historical and current Section Date Range: From patient's date of to the date document was created. This section includes the names of all active insurance providers for the patient. Insurance Provider Type of Coverage Plan Name Start of Policy Coverage End of Policy Coverage Group Number Member ID Insurance Provider's Telephone Number Policy Fleming's Name Patient's Relationship to Policy Fleming ANTHEM [facility] FEDERAL PREFERRED PROVIDER ORGANIZAT ION (PPO) BASIC FAMIL Y Mar 14, 2001 [id number] MEGAN FLORES OTHY PATIENT BCBS [place] FEP PREFERRED PROVIDER ORGANIZAT ION (PPO) BASIC FAMIL Y Mar 14, 2001 [id number] MEGAN FLOERS OTHY PATIENT [place]-F EP BCBS PRESCRIPT ION FEP [place] Mar 02, 2010 [id number] [phone] MEGAN FLORES OTHY PATIENT [place] EP BCBS PRESCRIPT ION BCBS FEP Mar 02, 2010 [id number] MEGAN FLORES PATIENT Selected Encounter This section includes the information on record at [place] for the Encounter. Date/Time Encounter Type Encounter Description Reason Provider Source Nov 30, 2023 10:00 AM UNLISTED SPEC DERM SVC/PX DERMATOLOGY ICD-10-CM Z13.89 Encounter for screening for other disorder ETHAN CAMILO [facility] Encounter Template Text not used by [place] Assessments - Encounter Diagnoses This section includes the primary and secondary diagnoses documented for the Encounter. Date/Time Primary/Secondary Diagnosis Diagnosis Name Provider Source Dec 13, 2023 10:22 AM PRIMARY Encounter for screening for other disorder ETHAN CAMILO [facility] Plan of Treatment: Future Appointments (+ 6 months) and Future Tests (+/- 45 days) The Plan of Treatment section includes future care activities for the [facility] This section includes future appointments and future orders which are active, pending or scheduled. Future Appointments This section includes appointments that were scheduled to occur 6 months from the date of the Encounter, up to a maximum of 20 appointments. The data comes from all [place] treatment facilities. Appointment Date/Time Appointment Type Appointme nt Facility Name May 05, 2024 11:00 AM AMBULATORY - MEDICINE [facility] Active, Pending, and Scheduled Orders This section includes a listing of several types of active, pending, and scheduled orders, including clinic medications orders, diagnostic test orders, procedure orders and consult orders; where the start date of the order is 45 days before the date of the Encounter or 45 days after the date of theEncounter. The data comes from all [place] treatment facilities. Test Date/Time Test Type Test Details Facility Name Dec 02, 2023 08:20 AM Consult Order DERMATOLOG Y/[facility] (OUTPT) Cons Surgical Supervisor's Choice [facility] Social History: Smoking Status (Most current) and Tobacco Use (All prior to encounter date) This section includes the most current, and the historical, smoking and tobacco- related health factors from the [place] facility where the Encounter took place. Current Smoking Status This section includes the most current smoking, or tobacco-related health factor, from the [place] facility where the Encounter took place. Date/Time Current Smoking Status Comment Nlaini mayberry Apr 13, 2023 02:30 PM VA-TOBACCO FORMER USER [facility] Tobacco Use History This section includes a history of the smoking, or tobacco-related health factors, that were collected on or before the date of the Encounter. The data comes from the [place] facility where the Encounter took place. Date/Time Smoking Status/Tobacco Use Comment Izabela stapleton Apr 13, 2023 02:30 PM VA-TOBACCO QUIT 5 TO < 15 YRS [facility] [place] [facility] Feb 13, 2022 09:00 AM VA-TOBACCO NEVER USED [facility] [place] [facility] May 14, 2020 03:00 PM VA-TOBACCO FORMER USER [facility] [place] [facility] May 14, 2020 03:00 PM VA-TOBACCO QUIT 5 TO < 15 YRS [facility] [place] [facility] Encounter Notes: All associated encounter notes This section contains the clinical notes associated to the Encounter. Date/Time Encounter Note(s) Provider Source Dec 01, 2023 08:49 AM TELEHEALTH NOTE: LOCAL TITLE: PATIENT NOTIFICATION TELEHEALTH RESULTS STANDARD TITLE: TELEHEALTH NOTE DATE OF NOTE: DEC 01, 2023@08:49 ENTRY DATE: DEC 01, 2023@08:49:46 AUTHOR: ETHAN CAMILO EXP COSIGNER: URGENCY: STATUS: COMPLETED PATIENT NOTIFICATION TELEHEALTH RESULTS Has ADDENDA Provided below are the results from pts telederm imaging reading. Ordering Provider is responsible to give pt the results and prescribe any treatments, recommendations or consult to dermatology for a face to face etc. REMOTE RESULTS [place] Document from: [facility] Associated on: Nov 30, 2023@15:10:34 LOCAL TITLE: CONSULT-TELEDERMATOLOGY IMAGING REPORT STANDARD TITLE: TELEIMAGING REPORT DATE OF NOTE: NOV 30, 2023@15:04 ENTRY DATE: NOV 30, 2023@15:05:48 AUTHOR: SALVADOR STEINBERG EXP COSIGNER: URGENCY: STATUS: COMPLETED HISTORY: This is a 58-year-old male with no previous history of skin cancers consulted for 4 lesions. Lesion a is on the right cheek present 1 year no symptoms associated. Lesion B is on the nose x 5 years no symptoms. Lesion C is on the right lower lip this is actually inferior to the right oral commissure. It has been present several months and increasing in size. Lesion D is on the right lower leg times years no associated symptoms. OVERALL CONSULT/IMAGE QUALITY: Fully satisfactory EXAM: Lesion a is a less than 1 cm rough scaly appearing papule. Lesion B is a brown slightly irregular pigmented lesion with hair follicle prominence. The right lower lip shows a filiform bonner papule and lesion D on the right lower leg shows an evenly pigmented brown macule with center scarring consistent with a DF. IMPRESSION BASED ON IMAGES AND INFORMATION REVIEWED: PROBLEM A: Diagnosis: Actinic Keratosis PROBLEM B: Diagnosis: Seborrheic Keratosis/ lentigo / pigmented AK PROBLEM C: Diagnosis: Non-malignant lesion Likely wart PROBLEM D: Diagnosis: Non-malignant lesion Dermatofibroma RECOMMENDATIONS FOR REFERRING PROVIDER: PROBLEM A: Liquid nitrogen cryotherapy: PROBLEM B: Liquid nitrogen cryotherapy: PROBLEM C: Liquid nitrogen cryotherapy: PROBLEM D: Other recommendations: This is a benign lesion no treatment is needed. TIME-SENSITIVITY: No time-sensitive, urgent, emergent or life-threatening results. RECOMMENDED FOLLOW-UP (Include Clinically Indicated Date (THEODORE)): Consult to Dermatology clinic for follow up THEODORE: Cumulative time of review and management: 5 minutes or more /rowena/ SALVADOR STEINBERG PA-C DERMATOLOGY CLINIC Signed: 11/30/2023 15:10 * END OF REMOTE RESULTS * /rowena/ ETHAN CAMILO TELEHEALTH CLINICAL CIGARETTE MAKING MACHINE OPERATOR Signed: 12/01/2023 08:51 Receipt Acknowledged By: 12/02/2023 08:19 /rowena/ CHYNA CLOUD DNP, ZAID NURSE PRACTITIONER 12/07/2023 06:50 /rowena/ ALDO Malagon DNP, LUIS Primary Care Nurse Practitioner 12/02/2023 ADDENDUM STATUS: COMPLETED consult placed for f2f /rowena/ CHYNA CLOUD DNP, ZAID NURSE PRACTITIONER Signed: 12/02/2023 08:20 ETHAN CAMILO [facility] Nov 30, 2023 09:58 AM TELEHEALTH CONSULT : LOCAL TITLE: CONSULT REPORT/TELEDERMATOLOGY IMAGING REQUEST STANDARD TITLE: TELEHEALTH CONSULT DATE OF NOTE: NOV 30, 2023@09:58 ENTRY DATE: NOV 30, 2023@09:58:39 AUTHOR: ETHAN CAMILO EXP COSIGNER: URGENCY: STATUS: COMPLETED Teledermatology Consult Request The patient was educated regarding the Teledermatology process at this encounter. Comment: Patient educated on telederm process and verbalizes understanding Patient DOES consent to have images taken, viewed, and interpreted using the Teledermatology process. This consult addresses: A new condition Images were acquired: In clinic HISTORY: Prior skin history: Yes For fingers cracking due to use if chemicals at work years ago. Have you had a skin cancer before? None Reported Family melanoma history: Sibling Sister possible melanoma but not sure but it was caner. Taking new med/supplements: None reported Immunosuppression history: None reported Other significant history: None reported Chief Complaint: 2 areas on his face, ?ak. He is also interested in body exam to rule out skin ca, Pt is concerned about also Right lower lip area and a lesion on his R lower Leg. PROBLEM A LOCATION(S): Head/Neck Right Cheek DURATION: years maybe 1 yr. SYMPTOMS: No Symptoms CHANGES: None TREATMENT: No BIOPSY: No PROBLEM B: LOCATION(S): Head/Neck Nose DURATION: Oldest lesion around 5 years ago. SYMPTOMS: No Symptoms CHANGES: None TREATMENT: No BIOPSY: No PROBLEM C: LOCATION(S): Head/Neck Right lower lip area DURATION: Not sure maybe a few month or more SYMPTOMS: No Symptoms CHANGES: Size getting bigger TREATMENT: No BIOPSY: No PROBLEM D: LOCATION(S): Lower Extremity Right Lower Leg DURATION: 3/4 years ago. SYMPTOMS: No Symptoms CHANGES: Elevation TREATMENT: No BIOPSY: No Rubber Stamp Maker's comments: Imaged per providers direction and facility protocol /rowena/ ETHAN CAMILO TELEHEALTH CLINICAL CIGARETTE MAKING MACHINE OPERATOR Signed: 11/30/2023 11:25 [facility]
--- OUTSIDE RECORDS SUMMARY | 2024-04-19 07:27 | XMS_ITS ---
Author Name [facility] [place] [facility] [place] Address [address] [place] [id number] Care Team Providers Care Commissary Production Supervisor Name Role Phone ARJUN SON Primary Care Provider [facility] Insurance Providers: All historical and current Section [...] Name Patient's Relationship to Policy Fleming ANTHEM [facility] FEDERAL PREFERRED PROVIDER ORGANIZAT ION (PPO) BASIC FAMIL Y Mar 14, 2001 [id number] MEGAN FLORES OTHY PATIENT BCBS [place] FEP PREFERRED PROVIDER ORGANIZAT ION (PPO) BASIC FAMIL Y Mar 14, 2001 [id number] 87 MEGAN FLORES OTHY PATIENT CAREMARK-F EP BCBS PRESCRIPT ION FEP CAREM ARK Mar 02, 2010 [id number] [phone] MEGAN FLORES OTHY PATIENT CAREMARK-F EP BCBS PRESCRIPT ION BCBS FEP Mar 02, 2010 [id number] [phone] MEGAN FLORES PATIENT Selected Encounter This section includes the information on record at [place] for the Encounter. Date/Time Encounter Type Encounter Description Reason Provider Source Oct 29, 2023 11:00 AM OFFICE O/P EST LOW 20 MIN PRIMARY CARE/MEDICINE ICD-10-CM N52.9 Male erectile dysfunction, unspecified WILLY SON AM Encounter Template Text not used by [place] Assessments - Encounter Diagnoses This section includes the primary and secondary diagnoses documented for the Encounter. Date/Time Primary/Secondary Diagnosis Diagnosis Name Provider Source Oct 29, 2023 01:30 PM PRIMARY Male erectile dysfunction, unspecified [facility] [place] [place] [facility] Oct 29, 2023 01:30 PM SECONDARY Actinic keratosis SON,WILL [facility] [place] [facility] Oct 29, 2023 01:30 PM SECONDARY Essential (primary) hypertension [facility] [place] [facility] Oct 29, 2023 01:30 PM SECONDARY Hyperlipidemia, unspecified [facility] Plan of Treatment: Future Appointments (+ 6 months) and Future Tests (+/- 45 days) The Plan of Treatment section includes future care activities for the patient from all [place] [facility]. This section includes future appointments and future orders which are active, pending or scheduled. Future Appointments This section includes appointments that were scheduled to occur 6 months from the date of the Encounter, up to a maximum of 20 appointments. The data comes from all [place] treatment facilities. Appointment Date/Time Appointment Type Appointme nt Facility Name Nov 30, 2023 10:00 AM [facility] Active, Pending, and Scheduled Orders This section includes a listing of several types of active, pending, and scheduled orders, including clinic medications orders, diagnostic test orders, procedure orders and consult orders; where the start date of the order is 45 days before the date of the Encounter or 45 days after the date of theEncounter. The data comes from all [place] treatment facilities. Test Date/Time Test Type Test Details Facility Name Dec 02, 2023 08:20 AM Consult Order DERMATOLOG Y/[facility] (OUTPT) Cons Melt Down Furnace Operator's Choice [facility] Lab Results: +/- 30 days of the encounter This section includes the Chemistry and Hematology Lab Results on record with [place] for the patient. Radiology Reports and Pathology Reports are provided separately, in subsequent sections. Lab Results This section contains the Chemistry/Hematology Results that were resulted 30 days before or 30 daysafter the date of the Encounter. Date/Time Source Result Type Result - Unit Interpretation Reference Range Comment Oct 27, 2023 10:09 AM [facility] HEPATITIS B SURFACE ANTIBODY (HBsAb)-WH Specimen Type: SERUM No comment entered. Ordering Provider: JON SON Report Released Date/Time: Oct 15, 2023 11:12 AM Reporting Lab: [address] [address] Performing Lab: [address] [address] HBsAb Non Reactive Non Reactive Oct 27, 2023 10:09 AM [facility] CBC Specimen Type: BLOOD No comment entered. Ordering Provider: JON SON Report Released Date/Time: Oct 15, 2023 11:12 AM Reporting Lab: [address] [address] Performing Lab: [address] [address] WBC 5.91 10*3/uL 4.50-11.00 RBC 4.58 10*6/uL 4.23-5.66 HGB 13.9 g/dL 12.8-17 HCT 41.2 39.2-50.4 MCV 90.0 fL 82-99 MCHC 33.7 g/dL 30.8-35.1 PLT 272 10*3/uL 140-360 RDW-CV 12.9 12.0-16.0 MCH 30.3 pg 26.2-32.6 Oct 27, 2023 10:09 AM [facility] BASIC METABOLIC PANEL (non-fasting) Specimen Type: SERUM No comment entered. Ordering Provider: JON SON Report Released Date/Time: Oct 15, 2023 11:12 AM Reporting Lab: [address] [address] Performing Lab: [facility] [address] [facility] [address] UREA NITROGEN 22 mg/dL 7-25 GLUCOSE 110 mg/dL H 65-100 SODIUM 137 mmol/L 135-145 POTASSIUM 3.9 mmol/L 3.5-5.0 CHLORIDE 102 mmol/L 100-110 CO2 23 meq/L 20-30 CREATININE, Serum 0.82 mg/dL 0.50-1.40 eGFR(CKD-EPI 2020) >90 mL/min >60 Oct 27, 2023 10:09 AM [facility] LIPID PANEL, NON FASTING Specimen Type: SERUM No comment entered. Ordering Provider: JON SON Report Released Date/Time: Oct 15, 2023 11:12 AM Reporting Lab: [address] [address] Performing Lab: [address] [address] CHOLESTEROL 221 mg/dL H TRIGLYCERIDE 132 mg/dL 0-150 LDL calculated 150 mg/dL H 0-129 CHOL/HDL 4.9 HDL CHOLESTEROL 45 mg/dL 40-60 Oct 27, 2023 10:09 AM [facility] LIVER FUNCTION Specimen Type: SERUM No comment entered. Ordering Provider: JON SON Report Released Date/Time: Oct 15, 2023 11:12 AM Reporting Lab: [address] [address] Performing Lab: [address] [address] PROTEIN,TOTAL 7.5 g/dL 6.0-8.3 ALBUMIN 4.5 g/dL 3.5-5.0 ALKALINE PHOSPHATASE 70 U/L 40-150 AST 26 U/L 5-34 ALT 55 U/L BILIRUBIN, TOTAL 0.7 mg/dL 0.2-1.2 Oct 27, 2023 10:09 AM [facility] PSA Specimen Type: SERUM No comment entered. Ordering Provider: JON SON Report Released Date/Time: Oct 15, 2023 11:12 AM Reporting Lab: [place] [facility] [place] [facility] [address] [facility] [address] Performing Lab: [place] [facility] [place] [facility] [address] [facility] [address] PSA 0.74 ng/mL 0.00-4.00 Vital Signs: All taken on the encounter date This section contains inpatient and outpatient Vital Signs collected on the date of the Encounter. Date/Time Temperature Pulse Blood Pressure Respiratory Rate SP02 Pain Height Weight Body Mass Index Source Oct 29, 2023 01:28 PM 142/84 [facility] [place] [facility] Oct 29, 2023 10:50 AM 98.1 52 144/91 20 98 0 69 252 37 [place] [facility] [place] [facility] Social History: Smoking Status (Most current) and Tobacco Use (All prior to encounter date) This section includes the most current, and the historical, smoking and tobacco- related health factors from the [place] facility where the Encounter took place. Current Smoking Status This section includes the most current smoking, or tobacco-related health factor, from the [place] facility where the Encounter took place. Date/Time Current Smoking Status Comment Facil ity Apr 13, 2023 02:30 PM VA-TOBACCO FORMER USER [place] [facility] [place] [facility] Tobacco Use History This section includes a history of the smoking, or tobacco-related health factors, that were collected on or before the date of the Encounter. The data comes from the [place] facility where the Encounter took place. Date/Time Smoking Status/Tobacco Use Comment F acility Apr 13, 2023 02:30 PM VA-TOBACCO QUIT 5 TO < 15 YRS [facility] [place] [facility] Feb 13, 2022 09:00 AM VA-TOBACCO NEVER USED [place] [facility] [place] [facility] May 14, 2020 03:00 PM VA-TOBACCO FORMER USER [place] [facility] [place] [facility] May 14, 2020 03:00 PM VA-TOBACCO QUIT 5 TO < 15 YRS [place] [facility] [place] [facility] Encounter Notes: All associated encounter notes This section contains the clinical notes associated to the Encounter. Date/Time Encounter Note(s) Provider Source Oct 29, 2023 01:23 PM PRIMARY CARE NURSE PRACTITIONER OUTPATIENT NOTE: LOCAL TITLE: NURSE PRACTITIONER OUTPATIENT NOTE STANDARD TITLE: PRIMARY CARE NURSE PRACTITIONER OUTPATIENT NOTE DATE OF NOTE: OCT 29, 2023@13:23 ENTRY DATE: OCT 29, 2023@13:23:07 AUTHOR: ARJUN SONIGNER: URGENCY: STATUS: COMPLETED Chief complaint: Patient is a 58 year old . HPI: Pleasant male Weog[place]ka here to follow up. He is also followed by Dr. Vicente. He is concered about two areas on his face, right cheek and nose, areas consistent with [place], also asks about having full body exam. He also has a skin tag just below his lip right side, consult to gen surg. Allergies: Patient has answered NKA The following VA and Non-VA meds were reconciled with patient. The patient was educated on the use of the medications including indication and side effects. Active and Recently Outpatient Medications (excluding Supplies): Active Outpatient Medications Status 1) ACETAMINOPHEN 325MG TAB TAKE TWO TABLETS BY MOUTH ACTIVE EVERY 4 HOURS NEEDED FOR PAIN 2) LIDOCAINE 5% PATCH APPLY 1 PATCH TOPICALLY ONCE DAILY ACTIVE (S) FOR NERVE PAIN (LEAVE PATCH ON FOR 12 HOURS, THEN REMOVE PATCH) 3) SILDENAFIL CITRATE 50MG TAB TAKE ONE TABLET BY MOUTH ACTIVE (S) ONCE DAILY NEEDED TAKE 1 HOUR PRIOR TO SEXUAL ACTIVITY Active Non-VA Medications Status 1) Non-VA HCTZ 25/LISINOPRIL 20MG TAB 1 TABLET BY MOUTH ACTIVE ONCE DAILY 2) Non-VA LORATADINE 10MG TAB 10MG BY MOUTH ONCE DAILY ACTIVE 5 Total Medications Review of Systems: Constitutional: (-)for Fevers, chills, weakness, nights sweats On examination: 98.1 F [36.7 C] (10/29/2023 10:50)144/91 (10/29/2023 10:50)52 (10/29/2023 10:50) 20 (10/29/2023 10:50)0 (10/29/2023 10:50)BMI: 37.3252 lb [114.31 kg] (10/29/2023 10:50) [place]ka is alert and oriented X3 Cardiovasc: 2plus carotids without bruits, no JVD Heart Reguler rate and rhythm NL S1S2 no S3 or murmur Respiration: Normal respiratory effort, lungs clear ABD: Benign normal active bowel sounds no HSM no rebound or referred pain EXT: no clubbing, edema, or cyanosis All diagnostics from past month were reviewed with patient. Assessment/plan: Active problems - Computerized Problem List is the source for the followin. Erectile Dysfunction ([facility] [id number]) - sildenafil helpful 2. HTN - Hypertension ([facility] [id number]) - will mail bp machine, educated to keep journal 3. Hyperlipidemia ([facility] [id number]) - now on statin per non va pcp, improving Review of medial record = 5mins Time spent with Patient including shared decision making = 20 mins Post visit documentation = 5mins Total time = 30 mins Follow up visit in 6 mos. HTN Assess for Elevated BP>=140/90: Repeat blood pressure: 142/84 The patient's blood pressure is usually adequately controlled. No medication changes are indicated at this time. Comment: see note Medication Reconciliation: Outpatient: Has the patient been taking medications as documented in the EMLR? YES: The patient has been taking medications as documented in the EMLR. Essential Medication List for Review used to complete this medication reconciliation. INCLUDED IN THIS LIST: Alphabetical list of active outpatient prescriptions dispensed from this VA (local) and dispensed from another VA or DoD facility (remote) as well as inpatient orders (local, pending and active), local clinic medications, locally documented non-VA medications, and local prescriptions that have or been discontinued in the past 90 days. - All changes in medications, including all non-VA/Herbal/OTC medications were entered into CPRS. - If there were any medications the patient should no longer take, they were discontinued. - The patient/caregiver was instructed to update this list, discard old lists, and take this list to the next appointment, whether with a VA or non-VA provider. /rowena/ Arjun Son DNP, EDI CONSULTANT-BC, CNL Primary Care Nurse Practitioner Signed: 10/29/2023 13:29 ARJUN SON [place] [facility] [place] [facility] Oct 29, 2023 11:06 AM PRIMARY CARE NURSE PRACTITIONER OUTPATIENT NOTE: LOCAL TITLE: NURSE PRACTITIONER OUTPATIENT NOTE STANDARD TITLE: PRIMARY CARE NURSE PRACTITIONER OUTPATIENT NOTE DATE OF NOTE: OCT 29, 2023@11:06 ENTRY DATE: OCT 29, 2023@11:06:55 AUTHOR: ARJUN SON EXP COSIGNER: URGENCY: STATUS: COMPLETED LAB CHEMISTRY & HEMATOLOGY Collection DT Specimen Test Name Result Units Ref Range 10/27/2023 10:09 BLOOD WBC 5.91 K/cmm 4.50 - 11.00 RBC 4.58 M/cmm 4.23 - 5.66 HGB 13.9 g/dL 12.8 - 17 HCT 41.2 % 39.2 - 50.4 MCV 90.0 fl 82 - 99 MCH 30.3 pg 26.2 - 32.6 MCHC 33.7 g/dL 30.8 - 35.1 RDW-CV 12.9 % 12.0 - 16.0 PLT 272 K/cmm 140 - 360 10/27/2023 10:09 SERUM PSA 0.74 ng/mL 0.00 - 4.00 10/27/2023 10:09 SERUM HBsAb Non Reactive Ref: Non Reactive 10/27/2023 10:09 SERUM CREATININE, Serum 0.82 mg/dL 0.50 - 1.40 eGFR(CKD-EPI 2020 >90 mL/min Ref: >=60 SODIUM 137 mmol/L 135 - 145 POTASSIUM 3.9 mmol/L 3.5 - 5.0 CHLORIDE 102 mmol/L 100 - 110 CO2 23 mEq/L 20 - 30 UREA NITROGEN 22 mg/dL 7 - 25 GLUCOSE 110 H mg/dL 65 - 100 PROTEIN,TOTAL 7.5 g/dL 6.0 - 8.3 ALBUMIN 4.5 g/dL 3.5 - 5.0 ALK BRYSON 70 U/L 40 - 150 AST 26 U/L 5 - 34 BILIRUBIN, TOTAL 0.7 mg/dL 0.2 - 1.2 CHOLESTEROL 221 H mg/dL <7 - 199 TRIGLYCERIDE 132 mg/dL 0 - 150 LDL calculated 150 H mg/dL 0 - 129 CHOL/HDL 4.9 ALT 55 U/L <6 - 55 HDL CHOLESTEROL 45 mg/dL 40 - 60 /rowena/ Arjun Son DNP, EDI CONSULTANT-BC, CNL Primary Care Nurse Practitioner Signed: 10/29/2023 11:09 ARJUN SON [facility] Oct 29, 2023 10:53 AM PREVENTIVE MEDICINE NURSING NOTE: LOCAL TITLE: CLINICAL REMINDERS/NURSING STANDARD TITLE: PREVENTIVE MEDICINE NURSING NOTE DATE OF NOTE: OCT 29, 2023@10:53 ENTRY DATE: OCT 29, 2023@10:53:31 AUTHOR: GILBERTO MONTERO EXP COSIGNER: URGENCY: STATUS: COMPLETED RHS Screen: RHS Screen Session Format: Face to Face Environmental Check Upon inquiry, the individual reports that the environment is safe to proceed. Informed Consent to Screen and Document The individual consents to proceed with screening. The individual consents to documentation of responses. PRIMARY SCREEN: In the past 12 months, how often did a current or former intimate partner (e.g., boyfriend, girlfriend, , , sexual partner): 1. Scream or curse at you Never 2. Insult or talk down to you Never 3. Threaten you with harm Never 4. Physically hurt you Never 5. Force or pressure you to have sexual contact against your will, or when you were unable to say no Never ?? The HITS tool (items 1-4 above) is [place] copyright protected by Kvng Tracy MD, and the user has full rights to use it throughout the [place] system. PRIMARY SCREEN RESULT: The Primary Screen is NEGATIVE. The individual answered never to all forms of IPV above (i.e., answered never to all 5 items) The individual accepts education and/or resources: No EDUCATION: Other: not interested at this time /rowena/ Gilberto Montero [facility] [employer] Fabrication Supervisor TICKET SORTER,PRIMARY CARE Signed: 10/29/2023 10:55 GILBERTO MONTERO [facility]
--- OUTSIDE RECORDS SUMMARY | 2024-04-19 07:27 | XMS_ITS | Encounter Summary ---
Author Name [facility] [place] Organization [place] Address [address] [place] [address] Care Team Providers Care Film Examiner Name Role Phone DEBRA MOSHER Primary Care Provider [facility] Insurance Providers: All historical and current [...] Fleming's Name Patient's Relationship to Policy Fleming DENNIS BCBS FEDERAL PREFERRED PROVIDER ORGANIZAT ION (PPO) BASIC FAMIL Y Mar 14, 2001 [id number] MEGAN FLORES OTHY PATIENT BCBS [place] FEP PREFERRED PROVIDER ORGANIZAT ION (PPO) BASIC FAMIL Y Mar 14, 2001 [id number] MEGAN FLORES OTHY PATIENT CAREMARK-F EP BCBS PRESCRIPT ION FEP CAREM ARK Mar 02, 2010 [id number] [phone] MEGAN FLORES OTHY PATIENT [employer]-F EP BCBS PRESCRIPT ION BCBS FEP Mar 02, 2010 [id number] [phone] MEGAN FLORES PATIENT Selected Encounter This section includes the information on record at [place] for the Encounter. Date/Time Encounter Type Encounter Description Reason Provider Source Nov 30, 2023 03:04 PM Outpatient Encounter DERMATOLOGY ICD-10-CM L57.0 Actinic keratosis SALVADOR STEINBERG E Encounter Template Text not used by [place] Assessments - Encounter Diagnoses This section includes the primary and secondary diagnoses documented for the Encounter. Date/Time Primary/Secondary Diagnosis Diagnosis Name Provider Source Nov 30, 2023 03:10 PM PRIMARY Actinic keratosis SALVADOR STEINBERG [facility] Nov 30, 2023 03:10 PM SECONDARY Other viral warts [facility]VADOR STEINBER[facility] Plan of Treatment: Future Appointments (+ 6 months) and Future Tests (+/- 45 days) The Plan of Treatment section includes future care activities for the patient from all [place] [facility]. This section includes future appointments and future orders which are active, pending or scheduled. Future Appointments This section includes appointments that were scheduled to occur 6 months from the date of the Encounter, up to a maximum of 20 appointments. The data comes from all [place] treatment facilities. Appointment Date/Time Appointment Type Appointme nt Facility Name May 05, 2024 11:00 AM AMBULATORY - MEDICINE [place] [facility] Active, Pending, and Scheduled Orders This section includes a listing of several types of active, pending, and scheduled orders, including clinic medications orders, diagnostic test orders, procedure orders and consult orders; where the start date of the order is 45 days before the date of the Encounter or 45 days after the date of theEncounter. The data comes from all [place] treatment facilities. Test Date/Time Test Type Test Details Facility Name Dec 02, 2023 08:20 AM Consult Order DERMATOLOG Y/[facility] (OUTPT) Cons Php Architect's Choice [place] [facility] [place] [facility] Encounter Notes: All associated encounter notes This section contains the clinical notes associated to the Encounter. Date/Time Encounter Note(s) Provider Source Nov 30, 2023 03:04 PM TELEIMAGING REPORT : LOCAL TITLE: CONSULT-TELEDERMATOLOGY IMAGING REPORT STANDARD TITLE: [...] STEINBERG PA-C [facility] CLINIC Signed: 11/30/2023 15:10 SALVADOR STEINBERG [facility]
--- OUTSIDE RECORDS SUMMARY | 2024-04-19 07:27 | XMS_ITS | Encounter Summary ---
Author Name [facility] [place] Address [address] [place] [address] Care Team Providers Care Commercial Diver Name Role Phone DEBRA MOSHER Primary Care Provider [facility] Insurance Providers: All historical and current [...] Name Patient's Relationship to Policy Fleming ANTHEM BS FEDERAL PREFERRED PROVIDER ORGANIZAT ION (PPO) BASIC FAMIL Y Mar 14, 2001 [id number] MEGAN FLORES OTRADHA PATIENT BCBS [place] FEP PREFERRED PROVIDER ORGANIZAT ION (PPO) BASIC FAMIL Y Mar 14, 2001 [id number] MEGAN FLORES OTHY PATIENT CAREMARK-F EP BCBS PRESCRIPT ION FEP CAREM ARK Mar 02, 2010 [id number] MEGAN FLORES OTHY PATIENT [employer]ARK-F EP BCBS PRESCRIPT ION BCBS FEP Mar 02, 2010 [id number] MEGAN FLORES PATIENT Selected Encounter This section includes the information on record at [place] for the Encounter. Date/Time Encounter Type Encounter Description Reason Pro vider Source Nov 26, 2023 10:00 AM Outpatient Encounter DERMATOLOGY IHE Encounter Template Text not used by [place] Plan of Treatment: Future Appointments (+ 6 months) and Future Tests (+/- 45 days) The Plan of Treatment section includes future care activities for the patient from all [place] [facility]. This section includes future appointments and future orders which are active, pending or scheduled. Future Appointments This section includes appointments that were scheduled to occur 6 months from the date of the Encounter, up to a maximum of 20 appointments. The data comes from all [place] treatment facilities. Appointment Date/Time Appointment Type Appointme nt Facility Name Nov 30, 2023 10:00 AM AMBULATORY - NONE [place] [facility] May 05, 2024 11:00 AM AMBUL[place]ORY - MEDICINE [place] [facility] Active, Pending, and Scheduled Orders This section includes a listing of several types of active, pending, and scheduled orders, including clinic medications orders, diagnostic test orders, procedure orders and consult orders; where the start date of the order is 45 days before the date of the Encounter or 45 days after the date of theEncounter. The data comes from all [place] treatment facilities. Test Date/Time Test Type Test Details Facility Name Dec 02, 2023 08:20 AM Consult Order DERMATOLOG Y/[facility] (OUTPT) Cons Cross Country Coach's [facility] [place] [facility] Social History: Smoking Status (Most current) and Tobacco Use (All prior to encounter date) This section includes the most current, and the historical, smoking and tobacco- related health factors from the [place] facility where the Encounter took place. Current Smoking Status This section includes the most current smoking, or tobacco-related health factor, from the [place] facility where the Encounter took place. Date/Time Current Smoking Status Comment Facil ity Apr 13, 2023 02:30 PM VA-TOBACCO FORMER USER [place] [facility] Tobacco Use History This section includes a history of the smoking, or tobacco-related health factors, that were collected on or before the date of the Encounter. The data comes from the [place] facility where the Encounter took place. Date/Time Smoking Status/Tobacco Use Comment F acility Apr 13, 2023 02:30 PM VA-TOBACCO QUIT 5 TO < 15 YRS [place] [facility] [place] [facility] Feb 13, 2022 09:00 AM VA-TOBACCO NEVER USED [place] [facility] [place] [facility] May 14, 2020 03:00 PM VA-TOBACCO FORMER USER [place] [facility] [place] [facility] May 14, 2020 03:00 PM VA-TOBACCO QUIT 5 TO < 15 YRS [place] [facility] [place] [facility] Encounter Notes: All associated encounter notes This section contains the clinical notes associated to the Encounter. Date/Time Encounter Note(s) Provider Source Nov 24, 2023 02:11 PM TELEHEALTH NOTE: LOCAL TITLE: TELEHEALTH NOTE STANDARD TITLE: TELEHEALTH NOTE DATE OF NOTE: NOV 24, 2023@14:11 ENTRY DATE: NOV 24, 2023@14:11:08 AUTHOR: ETHAN CAMILO EXP COSIGNER: URGENCY: STATUS: COMPLETED TCT Left a message that his appt had to be CX by CL on11/27/23 and to call TCT @ [phone] to reschedule. /rowena/ ETHAN CAMILO TELEHEALTH CLINICAL COYOTE HUNTER Signed: 11/24/2023 14:14 ETHAN CAMILO [place] [facility]
--- OUTSIDE RECORDS SUMMARY | 2024-04-19 07:28 | XMS_ITS | Continuity of Care Document ---
Author Name [facility] Organization [facility] Care Team Providers Care Community Health Program Representative Name Role Phone [facility] Unavailable Unavailable Problems Combined list of problems from Department of Defense and Veterans Affairs facilities. It does not include entries that were removed or entered in error. Problem Status Onset Date Problem Type Date of Resolution Comments Source Chronic Post-Traumatic Stress Disorder ([facility] [id number]) Active Condition [facility] Degenerative arthritis Active Condition May 14, 2020 Entered By: SYD MOSHER Comment: of the spine [facility] Erectile Dysfunction ([facility] [id number]) Active Condition [facility] [place] [facility] HTN - Hypertension ([facility] [id number]) Active Condition [facility] [facility] Hyperlipidemia ([facility] [id number]) Active Condition [facility] Diagnosis: ICD-10-CM L57.0 Actinic keratosis Active Diagnosis [facility] Diagnosis: ICD-10-CM Z13.89 Encounter for screening for other disorder Active Diagnosis [facility] [place] Diagnosis: ICD-10-CM N52.9 Male erectile dysfunction, unspecified Active Diagnosis [facility] [place] [facility] Diagnosis: ICD-10-CM M19.90 Unspecified osteoarthritis, unspecified site Active Diagnosis [facility] Diagnosis: ICD-10-CM M54.59 Other low back pain Active Diagnosis [facility] Diagnosis: ICD-10-CM S32.008A Oth fracture of unsp lumbar vertebra, init for clos fx Active Diagnosis [facility] Diagnosis: ICD-10-CM Z02.89 Encounter for other administrative examinations Active Diagnosis [facility] [place] [facility] Medications Combined list of outpatient medications from Department of Defense and Veterans Affairs facilities.Medications provided include 1) outpatient medications from the last 15 months, and 2) patient-reported medications. Medication Details Route Status Patient Instructions Prescription Expires Prescription Number Last Dispense Date Ordering Provider Order Date Order Qty Source ACETAMINOPH EN (U/D) 325 MG ORAL TAB TAKE TWO TABLETS BY MOUTH EVERY 4 HOURS NEEDED FOR PAIN 04/13/2024 [id number] DEBRA MOSHER 2023 200 [facility] ACETAMINOPH EN (U/D) 325 MG ORAL TAB TAKE TWO TABLETS BY MOUTH EVERY 4 HOURS NEEDED FOR PAIN 04/13/2024 [id number] 4 DEBRA MOSHER 2023 200 [facility] ACETAMINOPH EN (U/D) 325 MG ORAL TAB TAKE TWO TABLETS BY MOUTH EVERY 4 HOURS NEEDED FOR PAIN Discont inued 10/23/2023 [id number] 4 DEBRA MOSHER 2023 200 [facility] ACETAMINOPH EN 325MG TAB TAKE TWO TABLETS BY MOUTH EVERY 4 HOURS NEEDED FOR PAIN ORAL DISCONT INUED 10/23/2023 [id number] 4 DEBRA MOSHER 2022 200 [facility] ACETAMINOPH EN 325MG TAB TAKE TWO TABLETS BY MOUTH EVERY 4 HOURS NEEDED FOR PAIN ORAL 04/13/2024 [id number] 4 DEBRA MOSHER 2023 200 [facility] CYCLOBENZAP RINE HCL 10MG TAB TAKE ONE TABLET BY MOUTH THREE TIMES A DAY NEEDED FOR MUSCLE SPASM ORAL 09/19/2023 [id number] HOLLI OROZCO 2023 21 [facility] DIPHENHYDRA MINE HCL 2%/ZINC ACETATE 0.1% CREAM,TOP APPLY SMALL AMOUNT OF DIPHENHY DRAMINE/ ZINC ACET TOP CREAM TO SKIN DIRECTED MIX ONE HALF TUBE WITH WITCH DAPHNEY, HYDROCOR TISONE CREAM AND LIDOCAIN E CREAM AND APPLY TWICE DAILY FOR ITCHING/ RASH. MIX ONE HALF TUBE WITH WITCH DAPHNEY, HYDROCOR TISONE CREAM AND LIDOCAIN E CREAM AND APPLY TWICE DAILY FOR ITCHING/ RASH. TOPICA L 09/19/2023 [id number] RAMIROJumanaHOLLI TY 2023 30 [facility] Diphenhydra mine Hydrochlori de/Zinc Acetate (Benadryl Itch Stopping Eq.) Cream 2%-0.1% Topical APPLY SMALL AMOUNT OF DIPHENHY DRAMINE/ ZINC ACET TOP CREAM TO SKIN DIRECTED MIX ONE HALF TUBE WITH WITCH DAPHNEY, HYDROCOR TISONE CREAM AND LIDOCAIN E CREAM AND APPLY TWICE DAILY FOR ITCHING/ RASH. 09/19/2023 [id number] 4 KIKO ZAVALA 2023 30 [facility] HAMAMELIS WATER LIQUID,TOP APPLY SMALL AMOUNT TO SKIN DIRECTED MIX 1/4 CUP WITH HYDROCOR TISONE CREAM, DIPHENHY DRAMINE CREAM AND LIDOCAIN E CREAM AND APPLY TWICE DAILY FOR ITCHING/ RASH. MIX 1/4 CUP WITH HYDROCOR TISONE CREAM, DIPHENHY DRAMINE CREAM AND LIDOCAIN E CREAM AND APPLY TWICE DAILY FOR ITCHING/ RASH. TOPICA L 09/19/2023 [id number] 4 ERNESTOHOLLI TY 2023 480 [facility] HYDROCHLORO THIAZIDE 25MG/LISINO PRIL 20MG TAB TAKE ONE TABLET BY MOUTH ONCE DAILY ORAL ACTIVE DEBRA MOSHER 2021 [facility] hydrocortis one 1 % TOP CREA [28.35 GM] APPLY SMALL AMOUNT TO SKIN DIRECTED MIX ONE HALF TUBE WITH WITCH DAPHNEY, DIPHENHY DRAMINE CREAM AND LIDOCAIN E CREAM AND APPLY TWICE DAILY FOR ITCHING/ RASH. 09/19/2023 [id number] 4 KIKO ZAVALA 2023 30 [facility] HYDROCORTIS ONE 1% CREAM,TOP APPLY SMALL AMOUNT TO SKIN DIRECTED MIX ONE HALF TUBE WITH WITCH DAPHNEY, DIPHENHY DRAMINE CREAM AND LIDOCAIN E CREAM AND APPLY TWICE DAILY FOR ITCHING/ RASH. MIX ONE HALF TUBE WITH WITCH DAPHNEY, DIPHENHY DRAMINE CREAM AND LIDOCAIN E CREAM AND APPLY TWICE DAILY FOR ITCHING/ RASH. TOPICA L 09/19/2023 [id number] 4 HOLLI OROZCO TY 2023 30 [facility] IBUPROFEN 800MG TAB TAKE ONE TABLET BY MOUTH EVERY 8 HOURS NEEDED FOR PAIN TAKE WITH FOOD ORAL ACTIVE 02/22/2025 [id number] 4 DEBRA MOSHER 2023 90 [facility] Lidocaine (Sibley-Max Eq.) Cream 4% Topical APPLY SMALL AMOUNT TO SKIN DIRECTED MIX 1/4 TUBE WITH HYDROCOR TISONE CREAM, WITCH DAPHNEY AND DIPHENHY DRAMINE CREAM AND APPLY TWICE DAILY FOR ITCHING/ RASH. 09/19/2023 [id number] 4 KIKO ZAVALA 2023 30 [facility] Lidocaine (Lidoderm Eq.) Transdermal System 5% Topical APPLY 1 PATCH TOPICALL Y ONCE DAILY FOR NERVE PAIN (LEAVE PATCH ON FOR 12 HOURS, THEN REMOVE PATCH) 10/23/2023 [id number] 4 DEBRA MOSHER 2023 30 [facility] LIDOCAINE 4% CREAM,TOP APPLY SMALL AMOUNT TO SKIN DIRECTED MIX 1/4 TUBE WITH HYDROCOR TISONE CREAM, WITCH DAPHNEY AND DIPHENHY DRAMINE CREAM AND APPLY TWICE DAILY FOR ITCHING/ RASH. MIX 1/4 TUBE WITH HYDROCOR TISONE CREAM, WITCH DAPHNEY AND DIPHENHY DRAMINE CREAM AND APPLY TWICE DAILY FOR ITCHING/ RASH. TOPICA L 09/19/2023 [id number] HOLLI OROZCO TY 2023 30 [facility] LIDOCAINE 5% PATCH APPLY 1 PATCH TOPICALL Y ONCE DAILY FOR NERVE PAIN (LEAVE PATCH ON FOR 12 HOURS, THEN REMOVE PATCH) TOPICA L ACTIVE 10/29/2024 [id number] 4 DEBRA MOSHER 2023 30 [facility] LIDOCAINE 5% PATCH APPLY 1 PATCH TOPICALL Y ONCE DAILY FOR NERVE PAIN (LEAVE PATCH ON FOR 12 HOURS, THEN REMOVE PATCH) TOPICA L DISCONT INUED 10/23/2023 [id number] DEBRA MOSHER 2022 30 [facility] LORATADINE 10MG TAB TAKE ONE TABLET BY MOUTH ONCE DAILY ORAL ACTIVE DEBRA MOSHER 2020 [facility] sildenafiL 50 MG ORAL TAB TAKE ONE TABLET BY MOUTH ONCE DAILY NEEDED TAKE 1 HOUR PRIOR TO SEXUAL ACTIVITY 04/13/2024 [id number] 4 DEBRA MOSHER 2023 6 [facility] sildenafiL 50 MG ORAL TAB TAKE ONE TABLET BY MOUTH ONCE DAILY NEEDED TAKE 1 HOUR PRIOR TO SEXUAL ACTIVITY 04/13/2024 [id number] 4 DEBRA MOSHER 2023 6 [facility] sildenafiL 50 MG ORAL TAB TAKE ONE TABLET BY MOUTH ONCE DAILY NEEDED TAKE 1 HOUR PRIOR TO SEXUAL ACTIVITY Discont inued 05/27/2023 [id number] DEBRA MOSHER 2023 4 [facility] SILDENAFIL CITRATE 50MG TAB TAKE ONE TABLET BY MOUTH ONCE DAILY NEEDED TAKE 1 HOUR PRIOR TO SEXUAL ACTIVITY ORAL SUSPEND ED 10/29/2024 [id number] 5 DEBRA MOSHER 2023 18 [facility] SILDENAFIL CITRATE 50MG TAB TAKE ONE TABLET BY MOUTH ONCE DAILY NEEDED TAKE 1 HOUR PRIOR TO SEXUAL ACTIVITY ORAL DISCONT INUED 04/13/2024 [id number] 4 DEBRA MOSHER 2023 6 [facility] SILDENAFIL CITRATE 50MG TAB TAKE ONE TABLET BY MOUTH ONCE DAILY NEEDED TAKE 1 HOUR PRIOR TO SEXUAL ACTIVITY ORAL DISCONT INUED (EDIT) 05/27/2023 [id number] 4 DEBRA MOSHER 2022 4 [facility] Immunizations Combined list of available immunizations from the Department of Defense and Veterans Affairs facilities. Immunization Series Date Given Administered By Site Reaction Lot Number CVX Code Drug Plating Stripper Status Comments Source TDAP 2022 HONEY CRESPO RIGHT DELTO ID [id number] 115 complet ed [facility] ZOSTER RECOMBINANT 2022 ZANVETTOR,HONEY CONSTANTINO LEFT DELTO ID [id number] 187 complet ed [facility] INFLUENZA, INJECTABLE, QUADRIVALENT, PRESERVATIVE FREE 2021 ZANVETTOR,HONEY CONSTANTINO LEFT DELTO ID [id number] 150 complet ed [facility] ZOSTER RECOMBINANT 1 2021 ZANVETTOR,HONEY CONSTANTINO RIGHT DELTO ID [id number] 187 complet ed DIL [id number] 04/12/23 [facility] INFLUENZA, UNSPECIFIED FORMULATION 2019 88 complet ed [facility] Results Combined list of recent chemistry, hematology and other laboratory results from Department of Defense and Veterans Affairs, ranging from 15 months to all on record, depending upon the facility. Order Name Results Value Reference Range Date Interpretation Specimen Comments Source HEPATITI S B SURFACE ANTIBODY (HBsAb)- WH HEPATITIS B VIRUS SURFACE AB [PRESENCE] IN SERUM BY IMMUNOASSA Y Non Reactive 10/26 Specimen Type: SERUM No comment entered. Ordering Provider: SYD MOSHER Report Released Date/Time: Oct 15, 2023 11:12 AM Reporting Lab: [address] [address] Performing Lab: [address] [address] [facility] BASIC METABOLI C PANEL (non-fas ting) UREA NITROGEN [MASS/VOLU ME] IN SERUM OR PLASMA 22 mg/dL 7 - 25 10/26 Specimen Type: SERUM No comment entered. Ordering Provider: SYD MOSHER Report Released Date/Time: Oct 15, 2023 11:12 AM Reporting Lab: [address] [address] Performing Lab: [address] [address] [facility] BASIC METABOLI C PANEL (non-fas ting) GLUCOSE [MASS/VOLU ME] IN SERUM OR PLASMA 110 mg/dL 65 - 100 10/26 H Specimen Type: SERUM No comment entered. Ordering Provider: SYD MOSHER Report Released Date/Time: Oct 15, 2023 11:12 AM Reporting Lab: [facility] [address] [address] Performing Lab: [facility] [address] [facility] BASIC METABOLI C PANEL (non-fas ting) SODIUM [MOLES/VOL UME] IN SERUM OR PLASMA 137 mmol/L 135 - 145 10/26 Specimen Type: SERUM No comment entered. Ordering Provider: SYD MOSHER Report Released Date/Time: Oct 15, 2023 11:12 AM Reporting Lab: [facility] [address] Performing Lab: [facility] [address] [facility] BASIC METABOLI C PANEL (non-fas ting) POTASSIUM [MOLES/VOL UME] IN SERUM OR PLASMA 3.9 mmol/L 3.5 - 5.0 10/26 Specimen Type: SERUM No comment entered. Ordering Provider: SYD MOSHER Report Released Date/Time: Oct 15, 2023 11:12 AM Reporting Lab: [facility] [address] [address] Performing Lab: [facility] [address] [facility] BASIC METABOLI C PANEL (non-fas ting) CHLORIDE [MOLES/VOL UME] IN SERUM OR PLASMA 102 mmol/L 100 - 110 10/26 Specimen Type: SERUM No comment entered. Ordering Provider: SYD MOSHER Report Released Date/Time: Oct 15, 2023 11:12 AM Reporting Lab: [facility] [place] [facility] [address] [facility] [address] Performing Lab: [facility] [address] [facility] [address] [facility] [facility] BASIC METABOLI C PANEL (non-fas ting) CARBON DIOXIDE, TOTAL [MOLES/VOL UME] IN SERUM OR PLASMA 23 meq/L 20 - 30 10/26 Specimen Type: SERUM No comment entered. Ordering Provider: SYD MOSHER Report Released Date/Time: Oct 15, 2023 11:12 AM Reporting Lab: [facility] [address] Performing Lab: [facility] [address] [facility] BASIC METABOLI C PANEL (non-fas ting) CREATININE [MASS/VOLU ME] IN SERUM OR PLASMA 0.82 mg/dL 0.50 - 1.40 10/26 Specimen Type: SERUM No comment entered. Ordering Provider: SYD MOSHER Report Released Date/Time: Oct 15, 2023 11:12 AM Reporting Lab: [facility] [address] Performing Lab: [facility] [address] [facility] BASIC METABOLI C PANEL (non-fas ting) GLOMERULAR FILTRATION RATE/1.73 SQ M.PREDICTE D [VOLUME RATE/AREA] IN SERUM, PLASMA OR BLOOD BY CREATININE -BASED FORMULA (CKD-EPI 2020) >90mL/mi n 60 10/26 Specimen Type: SERUM No comment entered. Ordering Provider: SYD MOSHER Report Released Date/Time: Oct 15, 2023 11:12 AM Reporting Lab: [facility] [address] Performing Lab: [facility] [address] [facility] [place] [facility] CBC LEUKOCYTES [#/VOLUME] IN BLOOD BY AUTOMATED COUNT 5.91 10*3/uL 4.50 - 11.00 10/26 Specimen Type: BLOOD No comment entered. Ordering Provider: SYD MOSHER Report Released Date/Time: Oct 15, 2023 11:12 AM Reporting Lab: [facility] [facility] [address] [facility] [address] Performing Lab: [facility] [facility] [address] [facility] [address] [facility] [place] [facility] CBC ERYTHROCYT ES [#/VOLUME] IN BLOOD BY AUTOMATED COUNT 4.58 10*6/uL 4.23 - 5.66 10/26 Specimen Type: BLOOD No comment entered. Ordering Provider: SYD MOSHER Report Released Date/Time: Oct 15, 2023 11:12 AM Reporting Lab: [facility] [facility] [address] [place] [address] Performing Lab: [facility] [place] [facility] [address] [facility] [address] [facility] [place] [facility] CBC HEMOGLOBIN [MASS/VOLU ME] IN BLOOD 13.9 g/dL 12.8 - 17 10/26 Specimen Type: BLOOD No comment entered. Ordering Provider: SYD MOSHER Report Released Date/Time: Oct 15, 2023 11:12 AM Reporting Lab: [facility] [address] [place] [address] Performing Lab: [facility] [facility] [address] [facility] [address] [facility] [place] [facility] CBC HEMATOCRIT [VOLUME FRACTION] OF BLOOD BY AUTOMATED COUNT 41.2 39.2 - 50.4 10/26 Specimen Type: BLOOD No comment entered. Ordering Provider: SYD MOSHER Report Released Date/Time: Oct 15, 2023 11:12 AM Reporting Lab: [facility] [place] [address] [address] Performing Lab: [facility] [facility] [address] [facility] [address] [facility] [place] [facility] CBC MCV [ENTITIC VOLUME] BY AUTOMATED COUNT 90.0 fL 82 - 99 10/26 Specimen Type: BLOOD No comment entered. Ordering Provider: SYD MOSHER Report Released Date/Time: Oct 15, 2023 11:12 AM Reporting Lab: [facility] [address] [facility] [address] Performing Lab: [facility] [facility] [address] [facility] [address] [facility] [place] [facility] CBC MCHC [MASS/VOLU ME] BY AUTOMATED COUNT 33.7 g/dL 30.8 - 35.1 10/26 Specimen Type: BLOOD No comment entered. Ordering Provider: SYD MOSHER Report Released Date/Time: Oct 15, 2023 11:12 AM Reporting Lab: [facility] [place] [facility] [address] [facility] [address] Performing Lab: [facility] [place] [facility] [address] [facility] [address] [facility] [place] [facility] CBC PLATELETS [#/VOLUME] IN BLOOD BY AUTOMATED COUNT 272 10*3/uL 140 - 360 10/26 Specimen Type: BLOOD No comment entered. Ordering Provider: SYD MOSHER Report Released Date/Time: Oct 15, 2023 11:12 AM Reporting Lab: [facility] [address] [facility] [address] Performing Lab: [facility] [place] [facility] [address] [facility] [address] [facility] [place] [facility] CBC ERYTHROCYT E DISTRIBUTI ON WIDTH [RATIO] BY AUTOMATED COUNT 12.9 12.0 - 16.0 10/26 Specimen Type: BLOOD No comment entered. Ordering Provider: SYD MOSHER Report Released Date/Time: Oct 15, 2023 11:12 AM Reporting Lab: [facility] [place] [facility] [address] [facility] [address] Performing Lab: [facility] [place] [facility] [address] [facility] [address] [facility] [place] [facility] CBC MCH [ENTITIC MASS] BY AUTOMATED COUNT 30.3 pg 26.2 - 32.6 10/26 Specimen Type: BLOOD No comment entered. Ordering Provider: SYD MOSHER Report Released Date/Time: Oct 15, 2023 11:12 AM Reporting Lab: [facility] [place] [facility] [address] [facility] [address] Performing Lab: [facility] [place] [facility] [address] [facility] [address] [facility] [place] [facility] LIPID PANEL, NON FASTING CHOLESTERO L [MASS/VOLU ME] IN SERUM OR PLASMA 221 mg/dL 10/26 H Specimen Type: SERUM No comment entered. Ordering Provider: SYD MOSHER Report Released Date/Time: Oct 15, 2023 11:12 AM Reporting Lab: [facility] [place] [facility] [address] [facility] [address] Performing Lab: [facility] [place] [facility] [address] [facility] [address] [facility] [place] [facility] LIPID PANEL, NON FASTING TRIGLYCERI DE [MASS/VOLU ME] IN SERUM OR PLASMA 132 mg/dL 0 - 150 10/26 Specimen Type: SERUM No comment entered. Ordering Provider: SYD MOSHER Report Released Date/Time: Oct 15, 2023 11:12 AM Reporting Lab: [facility] [place] [facility] [address] [facility] [address] Performing Lab: [facility] [place] [facility] [address] [facility] [address] [facility] [place] [facility] LIPID PANEL, NON FASTING CHOLESTERO L IN LDL [MASS/VOLU ME] IN SERUM OR PLASMA BY CALCULALESLIEO N 150 mg/dL 0 - 129 10/26 H Specimen Type: SERUM No comment entered. Ordering Provider: SYD MOSHER Report Released Date/Time: Oct 15, 2023 11:12 AM Reporting Lab: [facility] [place] [facility] [address] [facility] [address] Performing Lab: [facility] [place] [facility] [address] [facility] [address] [facility] [place] [facility] LIPID PANEL, NON FASTING CHOLESTERO L.TOTAL/CH OLESTEROL IN HDL [MASS RATIO] IN SERUM OR PLASMA 4.9 10/26 Specimen Type: SERUM No comment entered. Ordering Provider: SYD MOSHER Report Released Date/Time: Oct 15, 2023 11:12 AM Reporting Lab: [facility] [place] [facility] [address] [facility] [address] Performing Lab: [facility] [place] [facility] [address] [facility] [address] [facility] [place] [facility] LIPID PANEL, NON FASTING CHOLESTERO L IN HDL [MASS/VOLU ME] IN SERUM OR PLASMA 45 mg/dL 40 - 60 10/26 Specimen Type: SERUM No comment entered. Ordering Provider: SYD MOSHER Report Released Date/Time: Oct 15, 2023 11:12 AM Reporting Lab: [facility] [place] [facility] [address] [facility] [address] Performing Lab: [facility] [place] [facility] [address] [facility] [address] [facility] [place] [facility] LIVER FUNCTION PROTEIN [MASS/VOLU ME] IN SERUM OR PLASMA 7.5 g/dL 6.0 - 8.3 10/26 Specimen Type: SERUM No comment entered. Ordering Provider: SYD MOSHER Report Released Date/Time: Oct 15, 2023 11:12 AM Reporting Lab: [facility] [place] [facility] [address] [facility] [address] Performing Lab: [facility] [place] [facility] [address] [facility] [address] [facility] [place] [facility] LIVER FUNCTION ALBUMIN [MASS/VOLU ME] IN SERUM OR PLASMA 4.5 g/dL 3.5 - 5.0 10/26 Specimen Type: SERUM No comment entered. Ordering Provider: SYD MOSHER Report Released Date/Time: Oct 15, 2023 11:12 AM Reporting Lab: [facility] [place] [facility] [address] [facility] [address] Performing Lab: [facility] [address] [facility] [address] [facility] [place] [facility] LIVER FUNCTION ALKALINE PHOSPHATAS E [ENZYMATIC ACTIVITY/V OLUME] IN SERUM OR PLASMA 70 U/L 40 - 150 10/26 Specimen Type: SERUM No comment entered. Ordering Provider: SYD MOSHER Report Released Date/Time: Oct 15, 2023 11:12 AM Reporting Lab: [facility] [address] [address] Performing Lab: [facility] [address] [address] [facility] LIVER FUNCTION ASPARTATE AMINOTRANS FERASE [ENZYMATIC ACTIVITY/V OLUME] IN SERUM OR PLASMA 26 U/L 5 - 34 10/26 Specimen Type: SERUM No comment entered. Ordering Provider: SYD MOSHER Report Released Date/Time: Oct 15, 2023 11:12 AM Reporting Lab: [facility] [place] [address] [address] Performing Lab: [facility] [place] [address] [address] [facility] LIVER FUNCTION ALANINE AMINOTRANS FERASE [ENZYMATIC ACTIVITY/V OLUME] IN SERUM OR PLASMA 55 U/L 10/26 Specimen Type: SERUM No comment entered. Ordering Provider: SYD MOSHER Report Released Date/Time: Oct 15, 2023 11:12 AM Reporting Lab: [facility] [place] [address] [address] Performing Lab: [facility] [address] [address] [facility] LIVER FUNCTION BILIRUBIN. TOTAL [MASS/VOLU ME] IN SERUM OR PLASMA 0.7 mg/dL 0.2 - 1.2 10/26 Specimen Type: SERUM No comment entered. Ordering Provider: SYD MOSHER Report Released Date/Time: Oct 15, 2023 11:12 AM Reporting Lab: [facility] [address] [address] Performing Lab: [facility] [address] [address] [facility] PSA PROSTATE SPECIFIC AG [MASS/VOLU ME] IN SERUM OR PLASMA 0.74 ng/mL 0.00 - 4.00 10/26 Specimen Type: SERUM No comment entered. Ordering Provider: SYD MOSHER Report Released Date/Time: Oct 15, 2023 11:12 AM Reporting Lab: [address] [address] Performing Lab: [address] [address] [facility] URINALYS IS,w/ REFLEX CULTURE/ MICROS[place] PIC COLOR OF URINE Light-Ye llow 08/19 Specimen Type: URINE Comment: Tests performed on [id number] DXU-SN [id number] (402) Ordering Provider: KIKO OROZCO Report Released Date/Time: Aug 20, 2023 11:52 AM Reporting Lab: [facility] [address] [facility] [address] Performing Lab: [facility] [address] [facility] [address] [facility] URINALYS IS,w/ REFLEX CULTURE/ MICROSCO PIC SPECIFIC GRAVITY OF URINE BY REFRACTOME TRY 1.009 1.010 - 1.025 08/19 Specimen Type: URINE Comment: Tests performed on [id number] DXU-SN [id number] (402) Ordering Provider: KIKO OROZCO Report Released Date/Time: Aug 20, 2023 11:52 AM Reporting Lab: [facility] [address] [facility] [address] Performing Lab: [facility] 1 [facility] [address] [facility] URINALYS IS,w/ REFLEX CULTURE/ MICROSCO PIC UROBILINOG EN [MASS/VOLU ME] IN URINE BY TEST STRIP <2.0mg/d L 0 - 2.0 08/19 Specimen Type: URINE Comment: Tests performed on [id number] DXU-SN [id number] (402) Ordering Provider: KIKO OROZCO Report Released Date/Time: Aug 20, 2023 11:52 AM Reporting Lab: [facility] [address] [facility] [address] Performing Lab: [facility] [address] [facility] [address] [facility] URINALYS IS,w/ REFLEX CULTURE/ [place] PIC BILIRUBIN. TOTAL [PRESENCE] IN URINE BY TEST STRIP Negative 08/19 Specimen Type: URINE Comment: Tests performed on [id number] DXU-SN [id number] (402) Ordering Provider: KIKO OROZCO Report Released Date/Time: Aug 20, 2023 11:52 AM Reporting Lab: [facility] [address] [facility] [address] Performing Lab: [facility] [address] [facility] [address] [facility] URINALYS IS,w/ REFLEX CULTURE/ [place]OS[place] PIC KETONES [MASS/VOLU ME] IN URINE BY TEST STRIP Negative mg/dL 08/19 Specimen Type: URINE Comment: Tests performed on [id number] DXU-SN [id number] (402) Ordering Provider: KIKO OROZCO Report Released Date/Time: Aug 20, 2023 11:52 AM Reporting Lab: [facility] [address] [facility] [address] Performing Lab: [facility] [address] [facility] [address] [facility] URINALYS IS,w/ REFLEX CULTURE/ [place]OS[place] PIC GLUCOSE [MASS/VOLU ME] IN URINE BY TEST STRIP Negative mg/dL 08/19 Specimen Type: URINE Comment: Tests performed on [id number] DXU-SN [id number] (402) Ordering Provider: KIKO OROZCO Report Released Date/Time: Aug 20, 2023 11:52 AM Reporting Lab: [facility] [address] [facility] [address] Performing Lab: [facility] [address] [place] [phone] [place] [address] URINALYS IS,w/ REFLEX CULTURE/ [place]OS[place] PIC PROTEIN [MASS/VOLU ME] IN URINE BY TEST STRIP Negative mg/dL 08/19 Specimen Type: URINE Comment: Tests performed on [id number] DXU-SN [id number] (402) Ordering Provider: KIKO OROZCO Report Released Date/Time: Aug 20, 2023 11:52 AM Reporting Lab: [facility] [address] [place] [phone] Performing Lab: [facility] [address] [place] [phone] [facility] URINALYS IS,w/ REFLEX CULTURE/ MICROSCO PIC PH OF URINE BY TEST STRIP 6.5 5 - 8 08/19 Specimen Type: URINE Comment: Tests performed on [id number] DXU-SN [id number] (402) Ordering Provider: KIKO OROZCO Report Released Date/Time: Aug 20, 2023 11:52 AM Reporting Lab: [facility] [address] [place] [phone] Performing Lab: [facility] [address] [place] [phone] [facility] URINALYS IS,w/ REFLEX CULTURE/ [place]CROS[place] PIC ERYTHROCYT ES [#/VOLUME] IN URINE BY TEST STRIP Negative 08/19 Specimen Type: URINE Comment: Tests performed on [id number] DXU-SN [id number] (402) Ordering Provider: KIKO OROZCO Report Released Date/Time: Aug 20, 2023 11:52 AM Reporting Lab: [facility] [address] [facility] [address] Performing Lab: [facility] [address] [facility] [address] [facility] URINALYS IS,w/ REFLEX CULTURE/ MICROSCO PIC NITRITE [PRESENCE] IN URINE BY TEST STRIP Negative 08/19 Specimen Type: URINE Comment: Tests performed on [id number] DXU-SN [id number] (402) Ordering Provider: KIKO OROZCO Report Released Date/Time: Aug 20, 2023 11:52 AM Reporting Lab: [facility] [address] [place] [phone] Performing Lab: [facility] [address] [facility] [address] [facility] URINALYS IS,w/ REFLEX CULTURE/ MICROS[place] PIC LEUKOCYTE ESTERASE [PRESENCE] IN URINE BY TEST STRIP Negative 08/19 Specimen Type: URINE Comment: Tests performed on [id number] DXU-SN [id number] (402) Ordering Provider: KIKO OROZCO Report Released Date/Time: Aug 20, 2023 11:52 AM Reporting Lab: [facility] [address] [place] [phone] Performing Lab: [facility] [address] [place] [phone] [facility] URINALYS IS,w/ REFLEX CULTURE/ MICROSCO PIC APPEARANCE OF URINE Clear 08/19 Specimen Type: URINE Comment: Tests performed on [id number] DXU-SN [id number] (402) Ordering Provider: KIKO OROZCO Report Released Date/Time: Aug 20, 2023 11:52 AM Reporting Lab: [facility] [address] [place] [phone] Performing Lab: [facility] [address] [place] [phone] [facility] PTT APTT IN PLATELET POOR PLASMA BY COAGULATIO N ASSAY 30.5 s 26.0 - 36.0 08/19 Specimen Type: PLASMA No comment entered. Ordering Provider: KIKO OROZCO Report Released Date/Time: Aug 20, 2023 11:52 AM Reporting Lab: [facility] [address] [place] [phone] Performing Lab: [facility] [address] [place] [phone] [facility] PT with INR Ratio INR IN PLATELET POOR PLASMA BY COAGULATIO N ASSAY 1.0 {ratio} 0.9 - 1.2 08/19 Specimen Type: PLASMA No comment entered. Ordering Provider: KIKO OROZCO Report Released Date/Time: Aug 20, 2023 11:52 AM Reporting Lab: [facility] [address] [place] [phone] Performing Lab: [facility] [address] [place] [phone] [facility] PT with INR Ratio PROTHROMBI N TIME (PT) 11.4 s 10.0 - 13.0 08/19 Specimen Type: PLASMA No comment entered. Ordering Provider: KIKO OROZCO Report Released Date/Time: Aug 20, 2023 11:52 AM Reporting Lab: [facility] [address] [facility] [address] Performing Lab: [facility] [address] [facility] [address] [facility] UREA NITROGEN UREA NITROGEN [MASS/VOLU ME] IN SERUM OR PLASMA 18 mg/dL 7 - 25 08/19 Specimen Type: SERUM No comment entered. Ordering Provider: KIKO OROZCO Report Released Date/Time: Aug 20, 2023 11:52 AM Reporting Lab: [facility] [address] [facility] [address] Performing Lab: [facility] [address] [facility] [address] [facility] Vital Signs Combined list of inpatient and outpatient Vital Signs from Department of Defense and Veterans Affairs, ranging from 12 months to all on record, depending upon the facility. Vital Sign Value Date Comments Source SYSTOLIC BLOOD PRESSURE 144 10/29/19 24 10:50:01 [facility] DIASTOLIC BLOOD PRESSURE 91 024 10:50:01 [facility] PULSE OXIMETRY 98 10/29/2023 10:50:01 [facility] WEIGHT 252 10/29/2023 10:50:01 [facility] BMI 37 kg/m2 10/29/2023 10:50:01 [facility] PAIN 0 10/29/2023 10:50:01 [facility] HEIGHT 69 10/29/2023 10:50:01 [facility] TEMPERATURE 98.1 10/29/2023 10:50:01 [facility] PULSE 52 10/29/2023 10:50:01 [facility] RESPIRATION 20 10/29/2023 10:50:01 [facility] SYSTOLIC BLOOD PRESSURE 152 08/20/19 24 11:13:28 [facility] DIASTOLIC BLOOD PRESSURE 100 024 11:13:28 [facility] PULSE OXIMETRY 97 08/20/2023 11:13:28 [facility] WEIGHT 253 08/20/2023 11:13:28 [facility] TEMPERATURE 97.5 08/20/2023 11:13:28 [facility] PULSE 65 08/20/2023 11:13:28 [facility] RESPIRATION 16 08/20/2023 11:13:28 [facility] Encounters Combined list of: 1) Encounters from Department of Veterans Affairs facilities going backup to the last 18 months, not all [place] inpatient encounters are included; 2) Encounters from the Department of [facility] facilities going backup to 280 months. Location Location Details Encounter Type Encounter Number Reason For Visit Attending Provider ADM Date DC Date Status Disposition Source [facility] Outpatient Encounter [id number] Fatoumata ALRSON 10/22 [facility] Out[facility]counter [id number] 12/18 [facility] Outpatient Encounter [id number] 12/19 [facility] Out[facility]counter [id number] 01/16 [facility] Out[facility]counter [id number] 01/27 [facility] Out[facility]counter [id number] 02/17 [facility] Out[facility]counter [id number] 02/20 [facility] Out[facility] Encounter [id number] 02/26 [facility] Out[facility]counter [id number] 03/03 [facility] Out[facility] Encounter [id number] 03/09 [facility] Out[facility]counter [id number] 03/17 [facility] Out[facility]counter [id number] 03/24 [facility] Out[facility]counter [id number] 03/26 [facility] Out[facility]counter [id number] 03/31 [facility] Out[facility] Encounter [id number] 04/02 [facility] Out[facility]counter [id number] 04/06 [facility] Out[facility]counter [id number] 04/09 [facility] Out[facility] Encounter [id number] 04/09 [facility] OFFICE O/P EST LOW 20 MIN [id number] Diagnos is: ICD-10- CM M19.90 Unspeci fied osteoar thritis , unspeci fied site Patty MOSHER 04/13 [facility] Outpatient Encounter [id number] Diagnos is: ICD-10- CM Z02.89 Encount er for other adminis trative examina tions DEEPAK PATINO 04/14 [facility] Outpatient Encounter [id number] 04/17 [facility] Outpatient Encounter [id number] 08/19 [facility] Outpatient Encounter [id number] AYN,LOUIE Y 08/19 [facility] EMERGENCY DEPT VISIT MOD MDM [id number] Diagnos is: ICD-10- CM S32.008 A Oth fractur e of unsp lumbar vertebr a, init for clos fx AYN,LOUIE Y 08/19 [facility] LSO R POST PNL SJ-T9 PRE NET DEVELOPER SOFTWARE ENGINEER C [id number] Diagnos is: ICD-10- CM M54.59 Other low back pain ROD CATHERINE 08/19 [facility] Out[facility] Encounter [id number] 08/20 [facility] Out[facility] Encounter [id number] 08/20 [facility] OFFICE O/P EST LOW 20 MIN [id number] Diagnos is: ICD-10- CM M19.90 Unspeci fied osteoar thritis , unspeci fied site Patty MOSHER J 08/24 [facility] Outpatient Encounter [id number] 09/17 [facility] Outpatient Encounter [id number] SOLIS,ROLAND ISTOPHER E 10/07 [facility] Outpatient Encounter [id number] 10/22 [facility] OFFICE O/P EST LOW 20 MIN [id number] Diagnos is: ICD-10- CM N52.9 Male erectil e dysfunc tion, unspeci fied Patty MOSHER 10/28 [facility] Outpatient [facility]counter [id number] 11/25 [facility] UNLISTED SPEC DERM SVC/PX [id number] Diagnos is: ICD-10- CM Z13.89 Encount er for screeni ng for other disorde r JAZMYN CAMILO ICA A 11/29 [facility] Outpatient Encounter [id number] Diagnos is: ICD-10- CM L57.0 Actinic keratos is SALVADOR STEINBERG 11/29 [facility] Outpatient Encounter [id number] 11/29 [facility] Outpatient Encounter [id number] 12/01 [facility] Outpatient Encounter [id number] CLINTON CRESPO 02/21 [facility] Social History Combined list of available smoking, tobacco, and other social history from Department of Defense and Veterans Affairs facilities. Social History Type Response Date Comment Sour e Tobacco smoking status NHIS [facility] FORMER USER 04/13/2023 [facility] History of tobacco use NV-TOBACCO QUIT 5 TO < 15 YRS 04/13/2023 [facility] History of tobacco use VA-TOBACCO NEVER USED 02/13/2022 [facility] History of tobacco use VA-TOBACCO FORMER USER 05/14/2020 [facility] This section is an empty social history section. [facility] Plan of Care List of future care activities from Department of Veterans Affairs facilities. Additional future care activities may be listed in the Assessment and Plan section. Date/Time Care Activity Care Activity Detail Facili ty 05/05/2024 AMBULATORY - MEDICINE AM[facility]ULAT[facility] [place] [facility] 07/12/2024 AMBULATORY - MEDICINE AMBULATORY [place] [facility]
--- OUTSIDE RECORDS SUMMARY | 2024-04-19 07:28 | XMS_ITS ---
Author Name [facility] (MD[facility] Organization [facility] Address [address] [place] [id number] Care Team Providers Care District Plant Superintendent Name Role Phone ARJUN MOSHER Primary Care Provider [facility] Insurance Providers: All historical and current Section [...] Name Patient's Relationship to Policy Fleming ANTHEM [facility] FEDERAL PREFERRED PROVIDER ORGANIZAT ION (PPO) BASIC FAMIL Y Mar 14, 2001 [id number] MEGAN FLORES OTHY PATIENT BCBS [place] FEP PREFERRED PROVIDER ORGANIZAT ION (PPO) BASIC FAMIL Y Mar 14, 2001 [id number] MEGAN FLORES OTHY PATIENT CAREMARK-F EP BCBS PRESCRIPT ION FEP CAREM ARK Mar 02, 2010 [id number] [phone] MEGAN FLORES OTHY PATIENT [place]EMARK-F EP BCBS PRESCRIPT ION BCBS FEP Mar 02, 2010 [id number] MEGAN FLORES PATIENT Selected Encounter This section includes the information on record at MD for the Encounter. Date/Time Encounter Type Encounter Description Reason Provider Source Aug 25, 2023 10:30 AM OFFICE O/P EST LOW 20 MIN PRIMARY CARE/MEDICINE ICD-10-CM M19.90 Unspecified osteoarthritis, unspecified site WILLY MOSHER AM [facility] Encounter Template Text not used by MD Assessments - Encounter Diagnoses This section includes the primary and secondary diagnoses documented for the Encounter. Date/Time Primary/Secondary Diagnosis Diagnosis Name Provider Source Aug 31, 2023 08:16 AM PRIMARY Unspecified osteoarthritis, unspecified site WILLY MOSHER AM [facility] Plan of Treatment: Future Appointments (+ 6 months) and Future Tests (+/- 45 days) The Plan of Treatment section includes future care activities for the [facility] This section includes future appointments and future orders which are active, pending or scheduled. Future Appointments This section includes appointments that were scheduled to occur 6 months from the date of the Encounter, up to a maximum of 20 appointments. The data comes from all MD treatment facilities. Appointment Date/Time Appointment Type Appointme nt Facility Name Sep 18, 2023 08:00 AM AMBULATORY - MEDICINE [facility] Oct 29, 2023 11:00 AM AMBULATORY - MEDICINE [facility] Nov 30, 2023 10:00 AM AMBULATORY - NONE [facility] Lab Results: +/- 30 days of the encounter This section includes the Chemistry and Hematology Lab Results on record with MD for the patient. Radiology Reports and Pathology Reports are provided separately, in subsequent sections. Lab Results This section contains the Chemistry/Hematology Results that were resulted 30 days before or 30 daysafter the date of the Encounter. Date/Time Source Result Type Result - Unit Interpretation Reference Range Comment Aug 20, 2023 01:00 PM [facility] URINALYSIS,w/ REFLEX CULTURE/MICROSCOPIC Specimen Type: URINE Comment: Tests performed on [id number] [id number] [id number] ([id number]) Ordering Provider: KIKO OROZCO Report Released Date/Time: Aug 20, 2023 11:52 AM Reporting Lab: [facility] [address] [facility] [address] Performing Lab: [facility] [address] [facility] [address] URINE COLOR Light-Yellow Almos t Colorless-Da rk Yellow SPECIFIC GRAVITY (UA) 1.009 1.010-1.025 UROBILINOGEN <2.0 mg/dL 0-2.0 URINE BILIRUBIN Negative NEG URINE KETONES Negative mg/dL NEG URINE GLUCOSE Negative mg/dL NEG URINE PROTEIN Negative mg/dL NEG URINE PH 6.5 5-8 URINE BLOOD Negative NEG NITRITE, URINE Negative NEG LEUKOCYTE ESTERASE, URINE Negative NEG URINE CLARITY Clear Clear Aug 20, 2023 11:55 AM [facility] PTT Specimen Type: PLASMA No comment entered. Ordering Provider: KIKO OROZCO Report Released Date/Time: Aug 20, 2023 11:52 AM Reporting Lab: [facility] [address] [facility] [address] Performing Lab: [facility] [address] [facility] [address] PTT 30.5 s 26.0-36.0 Aug 20, 2023 11:55 AM [facility] PT with INR Ratio Specimen Type: PLASMA No comment entered. Ordering Provider: KIKO OROZCO Report Released Date/Time: Aug 20, 2023 11:52 AM Reporting Lab: [facility] [address] [facility] [address] Performing Lab: [facility] [address] [facility] [address] INR 1.0 {ratio} 0.9-1.2 PT/inr 11.4 s 10.0-13.0 Aug 20, 2023 11:55 AM [facility] UREA NITROGEN Specimen Type: SERUM No comment entered. Ordering Provider: KIKO OROZCO Report Released Date/Time: Aug 20, 2023 11:52 AM Reporting Lab: [facility] [address] [facility] [address] Performing Lab: [facility] [address] [facility] [address] UREA NITROGEN 18 mg/dL 7-25 Aug 20, 2023 11:55 AM [facility] GLUCOSE Specimen Type: SERUM No comment entered. Ordering Provider: KIKO OROZCO Report Released Date/Time: Aug 20, 2023 11:52 AM Reporting Lab: [facility] [address] [facility] [address] Performing Lab: [facility] [address] [facility] [address] GLUCOSE 108 mg/dL H 65-100 Aug 20, 2023 11:55 AM [facility] CREATININE EGFR PROFILE Specimen Type: SERUM No comment entered. Ordering Provider: KIKO OROZCO Report Released Date/Time: Aug 20, 2023 11:52 AM Reporting Lab: [facility] [address] [facility] [address] Performing Lab: [facility] [address] [facility] [address] CREATININE 0.86 mg/dL 0.5-1.5 eGFR(CKD-EPI 2020) >90 mL/min >90 Aug 20, 2023 11:55 AM [facility] PANEL, ELECTROLYTE/SERUM Specimen Type: SERUM No comment entered. Ordering Provider: KIKO OROZCO Report Released Date/Time: Aug 20, 2023 11:52 AM Reporting Lab: [facility] [address] [facility] [address] Performing Lab: [facility] [address] [facility] [address] SODIUM 136 meq/L 135-145 POTASSIUM 3.5 meq/L 3.5-5.0 CHLORIDE 100 meq/L 100-110 CARBON DIOXIDE CONTENT 25 meq/L 20-30 ANION-GAP 11 meq/L 6-12 Aug 20, 2023 11:55 AM [facility] CALCIUM PROFILE Specimen Type: SERUM No comment entered. Ordering Provider: KIKO OROZCO Report Released Date/Time: Aug 20, 2023 11:52 AM Reporting Lab: [facility] [address] [facility] [address] Performing Lab: [facility] [address] [facility] [address] CALCIUM 9.8 mg/dL 8.5-10.5 ALBUMIN 4.2 g/dL 3.5-5.0 CALCIUM, CORRECTED 9.6 mg/dL 8.5-10.5 Aug 20, 2023 11:55 AM [facility] ALKALINE PHOSPHATASE Specimen Type: SERUM No comment entered. Ordering Provider: KIKO OROZCO Report Released Date/Time: Aug 20, 2023 11:52 AM Reporting Lab: [facility] [address] [facility] [address] Performing Lab: [facility] [address] [facility] [address] ALKALINE PHOSPHATASE 62 U/L 40-150 Aug 20, 2023 11:55 AM [facility] PROTEIN,TOTAL Specimen Type: SERUM No comment entered. Ordering Provider: KIKO OROZCO Report Released Date/Time: Aug 20, 2023 11:52 AM Reporting Lab: [facility] [address] [facility] [address] Performing Lab: [facility] [address] [facility] [address] PROTEIN,TOTAL 7.5 g/dL 6.0-8.5 Aug 20, 2023 11:55 AM [facility] BILIRUBIN PROFILE Specimen Type: SERUM No comment entered. Ordering Provider: KIKO OROZCO Report Released Date/Time: Aug 20, 2023 11:52 AM Reporting Lab: [facility] [address] [facility] [address] Performing Lab: [facility] [address] [place] [phone] BILIRUBIN, TOTAL 0.6 mg/dL 0.2-1.2 Aug 20, 2023 11:55 AM [facility] ALT (SGPT) Specimen Type: SERUM No comment entered. Ordering Provider: KIKO OROZCO Report Released Date/Time: Aug 20, 2023 11:52 AM Reporting Lab: [address] [address] Performing Lab: [place] [id number] ALT (SGPT) 54 U/L H 7-52 Aug 20, 2023 11:55 AM [facility] AST (SGOT) Specimen Type: SERUM No comment entered. Ordering Provider: KIKO OROZCO Report Released Date/Time: Aug 20, 2023 11:52 AM Reporting Lab: [address] [address] Performing Lab: [place] [id number] AST (SGOT) 26 U/L 5-40 Aug 20, 2023 11:55 AM [facility] CBC (INC. MACHINE DIFF) Specimen Type: BLOOD No comment entered. Ordering Provider: KIKO OROZCO Report Released Date/Time: Aug 20, 2023 11:52 AM Reporting Lab: [facility] [address] [facility] [address] Performing Lab: [facility] [address] [facility] [address] WBC 8.7 10*3/uL 4.5-11.0 RBC 4.65 10*6/uL 4.23-5.66 HGB 14.1 g/dL 12.8-17 HCT 43.0 39.2-50.4 MCV 92.5 fL 82-99 MCH 30.3 pg 26.2-32.6 MCHC 32.8 g/dL 30.8-35.1 PLT 265 10*3/uL 140-360 MPV 9.5 fL 9.2-12.4 RDW-CV 13.3 12-16 LYMPH % 20.3 14.0-42.3 LYMPH, ABS 1.8 10*3/uL 1-3.2 MONO % 9.6 5.1-13.7 NEUT % 66.2 43.7-75.8 EOSIN % 2.5 0.4-6.8 BASO % 0.7 0.1-2 NEUT, ABS 5.7 10*3/uL 2.2-7.6 BASO, ABS 0.1 10*3/uL 0.01-0.13 MONO, ABS 0.8 10*3/uL 0.3-1.1 EOS, ABS 0.2 10*3/uL 0.03-0.44 IG % 0.7 0-0.7 IG, ABS 0.1 10*3/uL H 0-0.06 NRBC% 0.0 0-0 NRBC# 0.00 10*3/uL 0-0 RDW-SD 45.8 fL 38-53 Aug 20, 2023 11:55 AM [facility] MAGNESIUM Specimen Type: SERUM No comment entered. Ordering Provider: KIKO OROZCO Report Released Date/Time: Aug 20, 2023 11:52 AM Reporting Lab: [address] [address] Performing Lab: [address] [address] MAGNESIUM 1.8 mg/dL 1.6-2.6 Social History: Smoking Status (Most current) and Tobacco Use (All prior to encounter date) This section includes the most current, and the historical, smoking and tobacco- related health factors from the MD facility where the Encounter took place. Current Smoking Status This section includes the most current smoking, or tobacco-related health factor, from the MD facility where the Encounter took place. Date/Time Current Smoking Status Comment Facil sh[facility] Apr 13, 2023 02:30 PM MD-TOBACCO FORMER USER [facility] Tobacco Use History This section includes a history of the smoking, or tobacco-related health factors, that were collected on or before the date of the Encounter. The data comes from the MD facility where the Encounter took place. Date/Time Smoking Status/Tobacco Use Comment F acility Apr 13, 2023 02:30 PM VA-TOBACCO QUIT 5 TO < 15 YRS [facility] Feb 13, 2022 09:00 AM VA-TOBACCO NEVER USED [facility] May 14, 2020 03:00 PM VA-TOBACCO FORMER USER [facility] May 14, 2020 03:00 PM VA-TOBACCO QUIT 5 TO < 15 YRS [facility] Radiology Reports: +/- 30 days of the encounter Radiology Reports For cases when an order for radiology services may have been completed prior to the date of the Encounter, the report list includes the Radiology Reports that were completed up to 30 days before dateof the Encounter. For cases when an order for radiology services may have been completed after the date of the Encounter, the report list also includes the Radiology Reports that were completed up to30 days after date of the Encounter. The data comes from all MD treatment facilities. Date/Time Radiology Report Provider Source Aug 20, 2023 12:[address] LUMBAR/SPINE W/ O: [place] [id number] -[id number] M Exm Date: AUG 20, 2023@12:17 Req Phys: KIKO OROZCO Loc: [facility] (Req'g Loc) Img Loc: CT SCAN Service: Unknown [facility] , (Case [id number] COMPLETE) CT LUMBAR/SPINE W/O (CT Detailed) CPT:06631 Reason for Study: s/p fall Clinical History: R/O Diagnosis :fx s/p fall. now with pain in lower thoracic and upper lumbar pain. pt with recent lumbar laminectomy/fusion Report Status: Verified Date Reported: AUG 20, 2023 Date Verified: AUG 20, 2023 Petroleum Geologist E-Sig: Report: CT LUMBAR/SPINE W/O Clinical History: Status post fall Comparison: Plain films dated February 13, 2022 Technique: The study was protocoled and supervised at the local MD facility. 8 series and 492 images were subsequently received by the MD National Teleradiology Program (NTP) for interpretation. Thin slice axial noncontrast computed tomographic images of the lumbar spine were obtained. Coronal and sagittal reformations were submitted. Total DLP (mGy*cm): 1695 Findings: There are 5 nonrib-bearing lumbar vertebra. There is maintenance of the normal lumbar lordosis. No discrete vertebral anterior wedge compression deformity is noted. There is interval postsurgical changes with L5-S1 fusion. Hardware appears intact. There is a intervening disc spacer which appears appropriately positioned. Imaging in the axial plane is significant for fractures involving the left transverse process of the L2 and L3. There is some minimal distraction of the fracture fragments without significant displacement. No additional fractures are identified within the field of view. There are some degenerative changes noted at the L4-L5 and L5-S1 levels. Orthopedic hardware causes some regional beam hardening artifact. Paravertebral soft tissues are without discrete hemorrhage. There are atherosclerotic changes within the aorta. Impression: 1. Acute left L2 and L3 transverse process fractures. READING PHYSICIAN: Chuck Pink M.D. -[id number] 08/20/2023 13:13 EDT [facility] National Teleradiology Program [phone] (For Medical Practitioner Use Only) Attention Patients / Veterans: If you have questions or concerns about these test results, please contact your ordering provider or primary care team. Primary Diagnostic Code: SIGNIFICANT ABNORMALITY, ATTN NEEDED Primary Interpreting Staff: OUTSIDE SERVICE RADIOLOGY, Staff Physician / RADIOLOGY,OUTSIDE SERVICE [facility] Aug 20, 2023 12:[address] THORAX W/O CONT : PAY[place] FLORES [id number] -[id number] M Exm Date: AUG 20, 2023@12:17 Req Phys: KIKO OROZCO Pat Loc: [facility] (Req'g Loc) Img Loc: CT SCAN Service: Unknown [facility] , (Case [id number] COMPLETE) CT THORAX W/O CONT (CT Detailed) CPT:77886 Reason for Study: s/p fall Clinical History: R/O Diagnosis :fractures s/p fall onto left back . pain, , swelling abrasions noted to the left posterior back/lower ibs Report Status: Verified Date Reported: AUG 20, 2023 Date Verified: AUG 20, 2023 Petroleum Geologist E-Sig: Report: CT THORAX W/O CONT Clinical History: Falls and back with swelling and abrasions Comparison: No priors available Technique: The study was protocoled and supervised at the local MD facility. 10 series and 684 images were subsequently received by the MD National Teleradiology Program (NTP) for interpretation. Thin slice axial noncontrast computed tomographic images of the chest were obtained. Coronal and sagittal reformations were submitted. Total DLP (mGy*cm): 498.6 Findings: Imaging of the chest shows an unremarkable appearance of the thyroid. The anterior mediastinum is without mass. Heart is normal in size without pericardial effusion. There are some atherosclerotic changes associated with the coronaries. Ascending aorta is without aneurysm. No intramural hematoma is identified. Pulmonary arteries are nondilated. There are a few small axillary mediastinal lymph nodes without evidence of adenopathy. Noted assessment of potential hilar nodes is limited on this noncontrast exam. No endobronchial lesions, bronchial wall thickening or bronchiectasis is present. Lungs are adequately ventilated. There is some minimal dependent atelectasis. No effusion or pneumothorax is identified. There is a 2 to 3 mm soft tissue pulmonary nodule noted within the superior bronchopulmonary segment of the right lower lobe series 3 image 38. No dominant or suspicious nodules are present. Imaging of the contents of the upper abdomen demonstrate some fatty infiltration of the the liver. Splenule is noted at the inferior margin of the spleen. No peritoneal hemorrhage or free air is identified. The normal thoracic kyphosis is preserved. The vertebral bodies without evidence of wedge compression deformity. There are a few small marginal osteophytes. There is a mildly displaced fracture involving the left 12th rib. There is additional fracture involving the left L2 transverse process. No discrete subcutaneous hematoma is identified. Impression: 1. No evidence of pulmonary contusion, effusion or pneumothorax. 2. Left 12th rib and left L2 transverse process fractures. Note the known left L3 transverse process fracture seen on the dedicated lumbar imaging is not included in the ilzyg-ky-drqk on this exam. READING PHYSICIAN: Chuck Pink M.D. -[id number] 08/20/2023 13:23 EDT [facility] National Teleradiology Program [phone] (For Medical Practitioner Use Only) Attention Patients / Veterans: If you have questions or concerns about these test results, please contact your ordering provider or primary care team. Primary Diagnostic Code: SIGNIFICANT ABNORMALITY, ATTN NEEDED Primary Interpreting Staff: OUTSIDE SERVICE RADIOLOGY, Staff Physician / RADIOLOGY,OUTSIDE SERVICE [facility] Encounter Notes: All associated encounter notes This section contains the clinical notes associated to the Encounter. Date/Time Encounter Note(s) Provider Source Aug 25, 2023 10:00 AM TELEHEALTH NOTE: LOCAL TITLE: [facility] VIDEO CONNECT PRIMARY CARE STANDARD TITLE: TELEHEALTH NOTE DATE OF NOTE: AUG 25, 2023@10:00 ENTRY DATE: AUG 31, 2023@08:11:46 AUTHOR: ARJUN MOSHER COSIGNER: URGENCY: STATUS: COMPLETED [facility] Video Connect (VVC) Standard Documentation VVC Clinician Resources Only: E911 (Emergency Call Relay Center): [phone] National Veterans Crisis Line - 988 then press #1. [facility] Suicide Coordinator - [phone], Ext. [phone]; Back-up Ext. [phone] MD Police, RASHMI, [place] - [phone] Introduction: Visit is being conducted by MD linkedFA Connect. identified with 2 identifiers: [X] Full Name [X] Date of [ ] VA ID Card Emergency Plan: confirmed and/or provided the following information in case of emergency or technology failure. PATIENT PHONE - PHONE NUMBER [CELLULAR] - Is patient phone number correct, if not, enter below: 's phone number: [address], [place] [address] 's present location and address for appointment: home [place]'s emergency contact name and phone number: chart [place] reported that location is private and safe: Yes Informed Consent: [place] informed of the risks and benefits of Telehealth video care. has the right to refuse video services. If refuses video visit, a ghqy-[id number] visit will be scheduled. [place] verbalized consent for this video visit: Yes provided consent for any other persons present for visit: N/A If yes, who and relationship to patient: Secure visit: Visit was locked for security and privacy:Yes Vital Signs Visualized during video visit: Chief complaint: Patient is a 58 year old [place]. HPI: Pleasant male presents via video. While on vacation, he fell off a boat in [place] on vacation broken Bones Rib and L3 L2 fractures. He was seen in [facility] ER and advised to follow back with neurosurgery, having had surgery this past December. Presently managing pain with flexeril. Allergies: Patient has answered NKA The following VA and Non-VA meds were reconciled with patient. The patient was educated on the use of the medications including indication and side effects. Active and Recently Outpatient Medications (excluding Supplies): Active Outpatient Medications Status = 1) ACETAMINOPHEN 325MG TAB TAKE TWO TABLETS BY MOUTH ACTIVE EVERY 4 HOURS NEEDED FOR PAIN 2) IBUPROFEN 800MG TAB TAKE ONE TABLET BY MOUTH EVERY 8 ACTIVE HOURS NEEDED FOR PAIN TAKE WITH FOOD 3) LIDOCAINE 5% PATCH APPLY 1 PATCH TOPICALLY ONCE DAILY ACTIVE FOR NERVE PAIN (LEAVE PATCH ON FOR 12 HOURS, THEN REMOVE PATCH) 4) SILDENAFIL CITRATE 50MG TAB TAKE ONE TABLET BY MOUTH ACTIVE ONCE DAILY NEEDED TAKE 1 HOUR PRIOR TO SEXUAL ACTIVITY Active Non-VA Medications Status = 1) Non-VA HCTZ 25/LISINOPRIL 20MG TAB 1 TABLET BY MOUTH ACTIVE ONCE DAILY 2) Non-VA LORATADINE 10MG TAB 10MG BY MOUTH ONCE DAILY ACTIVE 6 Total Medications Review of Systems: Constitutional: (-)for Fevers, chills, weakness, nights sweats On examination: 98.3 F [36.8 C] (04/13/2023 14:13)136/86 (04/13/2023 14:49)77 (04/13/2023 14:13) 20 (04/13/2023 14:13)5 (04/13/2023 14:13)BMI: 37.1251 lb [113.85 kg] (04/13/2023 14:13) is alert and oriented X3 Assessment/plan: Active problems - Computerized Problem List is the source for the following: Degenerative arthritis spine - consult placed for neurosurg Review of medial record = 5mins Time spent with Patient including shared decision making = 10 mins Post visit documentation = 5mins Total time = 20 mins Follow up visit as scheduled Alert to PACT RN - Labs as necessary to address clinical status. Additional comment: Medication Reconciliation: Outpatient: Has the patient been taking medications as documented in the EMLR? YES: The patient has been taking medications as documented in the EMLR. Essential Medication List for Review used to complete this medication reconciliation. INCLUDED IN THIS LIST: Alphabetical list of active outpatient prescriptions dispensed from this MD (local) and dispensed from another MD or [facility] facility (remote) as well as inpatient orders [...] a VA or non-VA provider. /rowena/ Arjun Mosher DNP, STAINED GLASS JOINER-BC, CNL Primary Care Nurse Practitioner Signed: 08/31/2023 08:16 ARJUN MOSHER MD CNTL [facility]
--- OUTSIDE RECORDS SUMMARY | 2024-04-19 07:28 | XMS_ITS | Encounter Summary ---
Author Name [facility] [place] Organization [facility] [place] [place] Address [address] [place] [id number] Care Team Providers Care Quality Control Assistant Name Role Phone DEBRA MOSHER Primary [facility] Provider [facility] Insurance Providers: All historical and current Section [...] BASIC FAMIL Y Mar 14, 2001 [id number] MEGAN FLORES OTRADHA PATIENT BCBS MA FEP PREFERRED PROVIDER ORGANIZAT ION (PPO) BASIC FAMIL Y Mar 14, 2001 [id number] MEGAN FLORES OTHY PATIENT CAREMARK-F EP BCBS PRESCRIPT ION FEP CAREM ARK Mar 02, 2010 [id number] [phone] MEGAN FLORES OTHY PATIENT [place]ARK-F EP BCBS PRESCRIPT ION BCBS FEP Mar 02, 2010 [id number] MEGAN FLORES PATIENT Selected Encounter This section includes the information on record at [place] for the Encounter. Date/Time Encounter Type Encounter Description Reason Provider Source Aug 20, 2023 11:12 AM Outpatient Encounter ADMIN PAT ACTIVTIES (MASNONCT) KIKO HIGGINS [facility] Encounter Template Text not used by [place] Plan of Treatment: Future Appointments (+ 6 months) and Future Tests (+/- 45 days) The Plan of Treatment section includes future care activities for the patient from all [place] treatmentfacilities. This section includes future appointments and future orders which are active, pending or scheduled. Future Appointments This section includes appointments that were scheduled to occur 6 months from the date of the Encounter, up to a maximum of 20 appointments. The data comes from all [place] treatment facilities. Appointment Date/Time Appointment Type Appointme nt Facility Name Aug 25, 2023 10:30 AM [facility]BULATORY [facility] Sep 18, 2023 08:00 AM AMBULATORY MEDICINE [facility] Oct 29, 2023 11:00 AM [facility] Nov 30, 2023 10:00 AM [facility] Lab Results: +/- 30 days of the encounter This section includes the Chemistry and Hematology Lab Results on record with [place] for the patient. Radiology Reports and Pathology Reports are provided separately, in subsequent sections. Lab Results This section contains the Chemistry/Hematology Results that were resulted 30 days before or 30 daysafter the date of the Encounter. Date/Time Source Result Type Result - Unit Interpretation Reference Range Comment Aug 20, 2023 01:00 PM [facility] URINALYSIS,w/ REFLEX CULTURE/MICROSCOPIC Specimen Type: URINE Comment: Tests performed on [id number] (402) Ordering Provider: KIKO HIGGINS Report Released Date/Time: Aug 20, 2023 11:52 AM Reporting Lab: [facility] [address] [facility] [address] Performing Lab: [address] [address] URINE COLOR Light-Yellow Almos t Colorless-Da rk Yellow SPECIFIC GRAVITY (UA) 1.009 1.010-1.025 UROBILINOGEN <2.0 mg/dL 0-2.0 URINE BILIRUBIN Negative NEG URINE KETONES Negative mg/dL NEG URINE GLUCOSE Negative mg/dL NEG URINE PROTEIN Negative mg/dL NEG URINE PH 6.5 5-8 URINE BLOOD Negative NEG NITRITE, URINE Negative NEG LEUKOCYTE ESTERASE, URINE Negative NEG URINE CLARITY Clear Clear Aug 20, 2023 11:55 AM [facility] PTT Specimen Type: PLASMA No comment entered. Ordering Provider: KIKO HIGGINS Report Released Date/Time: Aug 20, 2023 11:52 AM Reporting Lab: [facility] [address] [facility] [address] Performing Lab: [facility] [address] [facility] [address] PTT 30.5 s 26.0-36.0 Aug 20, 2023 11:55 AM [facility] PT with INR Ratio Specimen Type: PLASMA No comment entered. Ordering Provider: KIKO HIGGINS Report Released Date/Time: Aug 20, 2023 11:52 AM Reporting Lab: [facility] [address] [facility] [address] Performing Lab: [facility] [address] [facility] [address] INR 1.0 {ratio} 0.9-1.2 PT/inr 11.4 s 10.0-13.0 Aug 20, 2023 11:55 AM [facility] UREA NITROGEN Specimen Type: SERUM No comment entered. Ordering Provider: KIKO HIGGINS Report Released Date/Time: Aug 20, 2023 11:52 AM Reporting Lab: [facility] [address] [facility] [address] Performing Lab: [facility] [address] [facility] [address] UREA NITROGEN 18 mg/dL 7-25 Aug 20, 2023 11:55 AM [facility] GLUCOSE Specimen Type: SERUM No comment entered. Ordering Provider: KIKO HIGGINS Report Released Date/Time: Aug 20, 2023 11:52 AM Reporting Lab: [facility] [address] [facility] [address] Performing Lab: [facility] [address] [facility] [address] GLUCOSE 108 mg/dL H 65-100 Aug 20, 2023 11:55 AM [facility] CREATININE EGFR PROFILE Specimen Type: SERUM No comment entered. Ordering Provider: KIKO HIGGINS Report Released Date/Time: Aug 20, 2023 11:52 AM Reporting Lab: [facility] [address] [facility] [address] Performing Lab: [facility] [address] [facility] [address] CREATININE 0.86 mg/dL 0.5-1.5 eGFR(CKD-EPI 2020) >90 mL/min >90 Aug 20, 2023 11:55 AM [facility] PANEL, ELECTROLYTE/SERUM Specimen Type: SERUM No comment entered. Ordering Provider: KIKO HIGGINS Report Released Date/Time: Aug 20, 2023 11:52 AM Reporting Lab: [facility] [address] [facility] [address] Performing Lab: [facility] [address] [facility] [address] SODIUM 136 meq/L 135-145 POTASSIUM 3.5 meq/L 3.5-5.0 CHLORIDE 100 meq/L 100-110 CARBON DIOXIDE CONTENT 25 meq/L 20-30 ANION-GAP 11 meq/L 6-12 Aug 20, 2023 11:55 AM [facility] CALCIUM PROFILE Specimen Type: SERUM No comment entered. Ordering Provider: KIKO HIGGINS Report Released Date/Time: Aug 20, 2023 11:52 AM Reporting Lab: [facility] [address] [facility] [address] Performing Lab: [facility] [address] [facility] [address] CALCIUM 9.8 mg/dL 8.5-10.5 ALBUMIN 4.2 g/dL 3.5-5.0 CALCIUM, CORRECTED 9.6 mg/dL 8.5-10.5 Aug 20, 2023 11:55 AM [facility] ALKALINE PHOSPHATASE Specimen Type: SERUM No comment entered. Ordering Provider: KIKO HIGGINS Report Released Date/Time: Aug 20, 2023 11:52 AM Reporting Lab: [facility] [address] [facility] [address] Performing Lab: [facility] [address] [facility] [address] ALKALINE PHOSPHATASE 62 U/L 40-150 Aug 20, 2023 11:55 AM [facility] PROTEIN,TOTAL Specimen Type: SERUM No comment entered. Ordering Provider: KIKO HIGGINS Report Released Date/Time: Aug 20, 2023 11:52 AM Reporting Lab: [facility] [address] [facility] [address] Performing Lab: [facility] [address] [facility] [address] PROTEIN,TOTAL 7.5 g/dL 6.0-8.5 Aug 20, 2023 11:55 AM [facility] BILIRUBIN PROFILE Specimen Type: SERUM No comment entered. Ordering Provider: KIKO HIGGINS Report Released Date/Time: Aug 20, 2023 11:52 AM Reporting Lab: [facility] [address] [facility] [address] Performing Lab: [facility] [address] [place] [phone] BILIRUBIN, TOTAL 0.6 mg/dL 0.2-1.2 Aug 20, 2023 11:55 AM [facility] ALT (SGPT) Specimen Type: SERUM No comment entered. Ordering Provider: KIKO HIGGINS Report Released Date/Time: Aug 20, 2023 11:52 AM Reporting Lab: [facility] [address] [place] [phone] Performing Lab: [place] [phone] ALT (SGPT) 54 U/L H 7-52 Aug 20, 2023 11:55 AM [facility] AST (SGOT) Specimen Type: SERUM No comment entered. Ordering Provider: KIKO HIGGINS Report Released Date/Time: Aug 20, 2023 11:52 AM Reporting Lab: [facility] [address] [place] [phone] Performing Lab: [facility] [address] [place] [phone] AST (SGOT) 26 U/L 5-40 Aug 20, 2023 11:55 AM [facility] CBC (INC. MACHINE DIFF) Specimen Type: BLOOD No comment entered. Ordering Provider: KIKO HIGGINS Report Released Date/Time: Aug 20, 2023 11:52 AM Reporting Lab: [facility] [address] [facility] [address] Performing Lab: [facility] [address] [place] [phone] WBC 8.7 10*3/uL 4.5-11.0 RBC 4.65 10*6/uL [...] fL 38-53 Aug 20, 2023 11:55 AM [facility] MAGNESIUM Specimen Type: SERUM No comment entered. Ordering Provider: KIKO HIGGINS Report Released Date/Time: Aug 20, 2023 11:52 AM Reporting Lab: [address] [address] Performing Lab: [address] [address] MAGNESIUM 1.8 mg/dL 1.6-2.6 Vital Signs: All taken on the encounter date This section contains inpatient and outpatient Vital Signs collected on the date of the Encounter. Date/Time Temperature Pulse Blood Pressure Respiratory Rate SP02 Pain Height Weight Body Mass Index Source Aug 20, 2023 02:57 PM 62 134/100 16 99 [facility] Aug 20, 2023 01:09 PM 55 138/89 18 98 [facility] Aug 20, 2023 11:13 AM 97.5 65 152/100 16 97 253 [facility] Radiology Reports: +/- 30 days of [...] the Encounter. The data comes from all [facility] facilities. Date/Time Radiology Report Provider Source Aug 20, 2023 12:[address] LUMBAR/SPINE W/ O: PAYTON FLORES [id number] -[id number] M Exm Date: AUG 20, 2023@12:17 Req Phys: KIKO HIGGINS Samantha Loc: [facility] (Req'g Loc) Img Loc: CT SCAN Service: Unknown [facility] , (Case [id number] COMPLETE) CT LUMBAR/SPINE W/O (CT Detailed) CPT:90789 Reason for Study: s/p fall Clinical History: R/O Diagnosis :fx s/p fall. now with pain in lower thoracic and upper lumbar pain. pt with recent lumbar laminectomy/fusion Report Status: Verified Date Reported: AUG 20, 2023 Date Verified: AUG 20, 2023 Blower Room Attendant E-Sig: Report: CT LUMBAR/SPINE W/O Clinical History: Status post fall Comparison: Plain films dated February 13, 2022 Technique: The study was protocoled and supervised at the local [place] facility. 8 series and 492 images were subsequently received by the [place] National Telerad[facility] (NTP) for interpretation. Thin [...] process fractures. READING PHYSICIAN: Chuck Pink M.D. -[id number] 08/20/2023 13:13 EDT [facility] National Teleradiology Program [phone] (For Medical Practitioner Use Only) Attention Patients / Veterans: If you have questions or concerns about these test results, please contact your ordering provider or primary care team. Primary Diagnostic Code: SIGNIFICANT ABNORMALITY, ATTN NEEDED Primary Interpreting Staff: OUTSIDE SERVICE RADIOLOGY, Staff Physician / RADIOLOGY,OUTSIDE SERVICE [facility] Aug 20, 2023 12:[address] THORAX W/O CONT : PAYTON FLORES [id number] -[id number] M Exm Date: AUG 20, 2023@12:17 Req Phys: KIKO HIGGINS Pat Loc: [facility] (Req'g Loc) Img Loc: CT SCAN Service: Unknown [facility] , (Case [id number] COMPLETE) CT THORAX W/O CONT (CT Detailed) CPT:79106 Reason for Study: s/p fall Clinical History: R/O Diagnosis :fractures s/p fall onto left back . pain, , swelling abrasions noted to the left posterior back/lower ibs Report Status: Verified Date Reported: AUG 20, 2023 Date Verified: AUG 20, 2023 Blower Room Attendant E-Sig: Report: CT THORAX W/O CONT Clinical History: Falls and back with swelling and abrasions Comparison: No priors available Technique: The study was protocoled and supervised at the local [place] facility. 10 series and 684 images were subsequently received by the [place] National Teleradiology [facility] (NTP) for interpretation. Thin [...] lumbar imaging is not included in the [id number] on this exam. READING PHYSICIAN: Chuck Pink M.D. -[id number] 08/20/2023 13:23 EDT [facility] [place] Teleradiology Program [phone] (For Medical Practitioner Use Only) Attention Patients / Veterans: If you have questions or concerns about these test results, please contact your ordering provider or primary care team. Primary Diagnostic Code: SIGNIFICANT ABNORMALITY, ATTN NEEDED Primary Interpreting Staff: OUTSIDE SERVICE RADIOLOGY, Staff Physician / RADIOLOGY,OUTSIDE SERVICE [facility] Encounter Notes: All associated encounter notes This section contains the clinical notes associated to the Encounter. Date/Time Encounter Note(s) Provider Source Aug 20, 2023 03:18 PM EMERGENCY DEPT DIS CHARGE NOTE: LOCAL TITLE: [facility] DISCHARGE INSTRUCTIONS STANDARD TITLE: EMERGENCY DEPT DISCHARGE NOTE DATE OF NOTE: AUG 20, 2023@15:18:23 ENTRY DATE: AUG 20, 2023@15:18:23 AUTHOR: KIKO HIGGINS COSIGNER: URGENCY: STATUS: COMPLETED DISCHARGE INSTRUCTIONS IMPORTANT: We examined and treated you today on an emergency basis only. This was not a substitute for, or an effort to provide, complete medical care. In most cases, you must let your healthcare provider check you again. Tell your healthcare provider about any new or lasting problems. We cannot recognize and treat all injuries or illnesses in one Emergency Department visit. YOU ARE THE MOST IMPORTANT FACTOR IN YOUR RECOVERY. Follow instructions carefully. VISIT NOTES AND INFORMATION: Labs/Tests: If you had special tests, such as EKG's or X-rays, we will review them again within 24 hours. We will call you if there are any new suggestions. --- PRIMARY DIAGNOSIS:TRANSVERSE FRACTURE L2-3, LEFT 12 TH RIB FRACTURE You will find information related to your primary diagnosis below. TREATING PROVIDER: Kiko Higgins DISCHARGE DATE: 08/20/2023 --- YOU HAVE TRANSVERSE PROCESS FRACTURES AT L2-3. YOUR HARDWARE FORM YOU MOST RECENT SURGERY APPEARS STABLE. YOU HAVE A RIB FRACTURE ON THE LEFT SIDE AT RIB # 12 FOR PAIN MANAGEMENT: TAKE TYLENOL 650 MG EVERY 8 HOURS AND MUSCLE RELAXER CALLED FLEXERIL ONE TAB EVERY 8 HOURS NEEDED. THIS MAY CAUSE DORWSINESS, SO NO DRIVING. NO HEAVY LIFTING BENDING OR TWISTING. LIGHT ACTIVITY ONLY. WEAR BACK BRACE ( YOU CAN OBTAIN FROM PROSTHETICS TODAY)- MAKE SURE TO TAKE OFF SEVERAL TIMES DAILY TO TAKE DEEP BREATHS. PLEASE MAKE SURE TO FOLLOW UP WITH YOUR WRAPPER SELECTOR, DR. GORDILLO SOON POSSIBLE. RETURN BACK TO THE ED OR CLOSEST ED IF YOU DEVELOP SHORTNESS OF BREATH, COUGHING UP BLOOD, FEVER, SHORTNESS OF BREATH, NUMBNESS IN YOUR GROIN, LOSS OF BOWEL OR BLADDER CONTROL OR ANY OTHER CONCERNS. --- IMPORTANT MEDICATION INFORMATION -Your medication list includes any medications that were recently prescribed but not filled by the Pharmacy (PENDING Medicines). -Included are any known ACTIVE Medicines. Please review this list to make sure it is accurate, if this list does not match the current medications you are taking please follow-up with your Primary Care Team to have your Medication List reviewed. Medicines Medication List not available FOLLOW UP CARE INSTRUCTIONS: It is Important that you keep your scheduled appointments. If you need to Make, Change or Cancel an Appointment please call and press extension 2. A list of your scheduled appointments is available at the end of these instructions. We do not anticipate you will require any follow-up care as a result of your treatment today.Contact your Primary Care Team if you feel you need to be seen again because you are experiencing new symptoms, feel worse, or are not getting better as discussed. --- This Information Is About Your Illness and Diagnosis --- FRACTURE OF THE TRANSVERSE PROCESS The transverse process is a part of one of the many bones that make up the spine (the vertebrae ). The transverse processes protrude outward and are on either side of each vertebrae. The spinal muscles attach to the transverse processes. A fracture in the transverse process is a break that is usually caused by a hard hit to that area, extreme rotation or sideways bending. Usually a fractured transverse process is a very stable fracture, and little treatment is necessary. At home, follow these instructions: -Use an ice pack on the area if you have swelling. You may alternate this with heat, such as a heating pad or hot water bottle. -Take any prescribed medicines as needed: -You may receive medicines to decrease pain and inflammation. -You may receive medicines to decrease muscle spasms in your back. -To heal a fracture more quickly, eat foods that are nutritious and high in protein and fiber. Foods high in protein include meat, fish, poultry, beans, cheese, milk, eggs, and tofu. Call your doctor if you have: -increased pain. -weakness, numbness, or tingling in your arms or legs. -abdominal pain or back pain. -blood in your urine. -any trouble controlling your bowels or bladder. -any new or bothersome symptoms. RIB FRACTURE Ribs are the bones that protect your lungs and heart. A rib fracture is a rib that gets broken. One or more ribs may be broken. Rib fractures are very painful but usually do not cause any other problems. What causes a rib fracture? -accidents -falls -sports injuries -physical assault -osteoporosis (weakening of the bones) What are the signs and symptoms of a rib fracture? -pain in the rib cage, especially with turning or bending -pain with breathing -bruising over the ribs How does my health care provider know I have a fractured rib? -by examining you and talking with you -by doing an x-ray of your chest How will my rib fracture be treated? In the past, rib belts were used to treat broken ribs. Rib belts were worn tightly around the ribs and helped to decrease the pain. But rib belts make it difficult for you to take deep breaths, and if you do not take deep breaths, you can easily get pneumonia. Today, rib fractures are treated with pain medicines, deep breathing and coughing exercises. You may need to take pain medications for a few weeks before the pain begins to get better. Your ribs will heal over several weeks. If you are elderly or you have many rib fractures, you may need to be in the hospital to be sure that you don't have complications from your rib fractures. Please follow these instructions: -Take your pain medications as needed, following your health care provider's instructions. -Take 5 to 10 deep breaths every 1 to 2 hours, even if it hurts. -Support your broken ribs with a pillow when you take deep breaths. -Do not use a rib belt or any other device that constricts your chest. -Stay as active as possible. This will help prevent pneumonia. -Use ice on your ribs for the first few days, placing a cloth between the ice bag and your skin. After a few days, place a hot water bottle or heating pad on your ribs for comfort. -Do not smoke. If you need help quitting, talk with your health care provider. Research has shown that smoking slows fracture healing. -To help you heal as quickly as possible, eat foods that are nutritious and high in protein and fiber. Foods high in protein include meat, fish, poultry, beans, cheese, milk, eggs, and tofu. Contact your health care provider as soon as possible if you have: -pain not relieved by pain medicine. -trouble breathing. -fever or chills. -cough that brings up colored phlegm. -any questions or concerns. --- This is Information About Your New Medications - Start taking as prescribed. --- CYCLOBENZAPRINE (Flexeril, Amrix, others) --- Take this medicine as directed. --- This medicine is a muscle relaxant. It is used along with rest and physical therapy to treat muscle pain or injury. This medicine may be used for other reasons, as prescribed by your doctor. Side effects may include: -drowsiness or dizziness -blurred vision -dry mouth -headache -nervousness Other side effects may occur, but are not as common. Allergy would show up as: rash or itching, facial or throat swelling, wheezing or shortness of breath. Follow these instructions: -Continue to rest and use physical therapy as directed by your doctor. -Read the labels on your non-prescription medicines, especially cough, cold, and allergy medicines. Many contain ingredients that cause additional drowsiness. Talk with your doctor or pharmacist before taking these medicines with cyclobenzaprine. -If you are taking the extended-release form of this medicine, swallow the tablet whole. Do not crush, break, or chew them. -Keep all follow-up appointments with your doctor. -Sit or stand slowly to reduce dizziness. -Do not drink alcohol, drive, or operate machinery until you know how this medicine affects you. -Store this medicine away from heat, moisture, or direct light. -If you miss a dose of this medicine and remember it within an hour of the missed dose, take it right away. If you do not remember the missed dose until later, skip the missed dose and go back to your usual schedule. Do not double the doses. -Talk with your doctor before taking any other medicines (including vitamins and herbals) as you may require additional monitoring. Call your doctor if you have: -any sign of allergy. -extreme dizziness or fainting. -stomach pain, nausea, or vomiting. -fast heartbeat. -depression or mental changes, such as confusion. -yellow color to your skin or eyes. -trouble urinating. -ringing in your ears. -clumsiness. -any new or bothersome symptoms. APPOINTMENT INFORMATION: Future Appointments Future Appointments List not available CONTACT INFORMATION: -CRISIS LINE: If you are experiencing a mental health crisis please call the Crisis Line at -[facility] NUMBER: -If you need to relay a message to your Primary Care Team, Speciality Provider or Speak with a Nurse call the Patient Call Center at extension [phone] Most important, see a healthcare provider again as discussed. Be sure to let us know if you don't know the location for the healthcare provider. If you don't have transportation to the healthcare provider, let us know. If you have problems that we have not discussed, call or visit your healthcare provider right away. If you cannot reach your healthcare provider, go to the Emergency Department. /rowena/ MERRITT BRANDON Signed: 08/20/2023 15:18 KIKO HIGGINS
--- OUTSIDE RECORDS SUMMARY | 2024-04-19 07:28 | XMS_ITS | Encounter Summary ---
Author Name [facility] ([place]) Organization [facility] ([place]) Address [address] [place] [id number] Care Team Providers Care Price Lister Name Role Phone DEBRA MOSHER Primary Care Provider [facility] Insurance Providers: All historical and current Section [...] Name Patient's Relationship to Policy Fleming DENNIS [facility] FEDERAL PREFERRED PROVIDER ORGANIZAT ION (PPO) BASIC FAMIL Y Mar 14, 2001 [id number] MEGAN FLORES OTHY PATIENT BCBS [place] FEP PREFERRED PROVIDER ORGANIZAT ION (PPO) BASIC FAMIL Y Mar 14, 2001 [id number] MEGAN FLORES OTHY PATIENT CAREMARK-F EP BCBS PRESCRIPT ION FEP CAREM ARK Mar 02, 2010 [id number] MEGAN FLORES OTHY PATIENT [place]ARK-F EP BCBS PRESCRIPT ION BCBS FEP Mar 02, 2010 [id number] MEGAN FLORES OTRADHA PATIENT Selected Encounter This section includes the information on record at DC for the Encounter. Date/Time Encounter Type Encounter Description Reason Provider Source Aug 20, 2023 11:12 AM EMERGENCY DEPT VISIT MOD [facility] EMERGENCY DEPT ICD-10-CM S32.008A Oth fracture of unsp lumbar vertebra, init for KIKO Armenta Cat Encounter Template Text not used by DC Assessments - Encounter Diagnoses This section includes the primary and secondary diagnoses documented for the Encounter. Date/Time Primary/Secondary Diagnosis Diagnosis Name Provider Source Aug 20, 2023 03:52 PM PRIMARY Oth fracture of unsp lumbar vertebra, init for KIKO Armenta [facility] Aug 20, 2023 03:52 PM SECONDARY Fracture of one rib, unsp side, init for KIKO Armenta [facility] Plan of Treatment: Future Appointments (+ 6 months) and Future Tests (+/- 45 days) The Plan of Treatment section includes future care activities [facility] the [facility] This section includes future appointments and future orders which are active, pending or scheduled. Future Appointments This section includes appointments that were scheduled to occur 6 months from the date of the Encounter, up to a maximum of 20 appointments. The data comes from all [place] treatment facilities. Appointment Date/Time Appointment Type Appointme nt Facility Name Aug 25, 2023 10:30 AM AMBULATORY - MEDICINE [facility] Sep 18, 2023 08:00 AM AMBULATORY MEDICINE [facility] Oct 29, 2023 11[facility]00 AM AMBULATORY - MEDICINE DC C [facility] Nov 30, 2023 10:00 AM AMBULATORY - NONE [facility] Lab Results: +/- 30 days of the encounter This section includes the Chemistry and Hematology Lab Results on record with DC for the patient. Radiology Reports and Pathology Reports are provided separately, in subsequent sections. Lab Results This section contains the Chemistry/Hematology Results that were resulted 30 days before or 30 daysafter the date of the Encounter. Date/Time Source Result Type Result - Unit Interpretation Reference Range Comment Aug 20, 2023 01:00 PM [facility] URINALYSIS,w/ REFLEX CULTURE/MICROSCOPIC Specimen Type: URINE Comment: Tests performed on [id number] DXU-SN [id number] (402) Ordering Provider: KIKO HIGGINS Report Released Date/Time: Aug 20, 2023 11:52 AM Reporting Lab: [facility] [address] [facility] [address] Performing Lab: [facility] [address] [facility] [address] URINE COLOR Light-Yellow Almos t Colorless-Da rk Yellow SPECIFIC GRAVITY (UA) 1.009 1.010-1.025 UROBILINOGEN <2.0 mg/dL 0-2.0 URINE BILIRUBIN Negative NEG URINE KETONES Negative mg/dL NEG URINE GLUCOSE Negative mg/dL NEG URINE PROTEIN Negative mg/dL NEG URINE PH 6.5 5-8 URINE BLOOD Negative NEG NITRITE, URINE Negative NEG LEUKOCYTE ESTERASE, URINE Negative NEG URINE CLARITY Clear Clear Aug 20, 2023 11:55 AM [facility] PTT Specimen Type: PLASMA No comment entered. Ordering Provider: KIKO HIGGINS Report Released Date/Time: Aug 20, 2023 11:52 AM Reporting Lab: [facility] [address] [facility] [address] Performing Lab: [facility] [address] [place] [phone] PTT 30.5 s 26.0-36.0 Aug 20, 2023 11:55 AM [facility] PT with INR Ratio Specimen Type: PLASMA No comment entered. Ordering Provider: KIKO HIGGINS Report Released Date/Time: Aug 20, 2023 11:52 AM Reporting Lab: [facility] [address] [facility] [phone] Performing Lab: [facility] [address] [facility] [phone] INR 1.0 {ratio} 0.9-1.2 PT/inr 11.4 s 10.0-13.0 Aug 20, 2023 11:55 AM [facility] UREA NITROGEN Specimen Type: SERUM No comment entered. Ordering Provider: KIKO HIGGINS Report Released Date/Time: Aug 20, 2023 11:52 AM Reporting Lab: [facility] [address] [facility] [phone] Performing Lab: [facility] [address] [facility] [phone] UREA NITROGEN 18 mg/dL 7-25 Aug 20, 2023 11:55 AM [facility] GLUCOSE Specimen Type: SERUM No comment entered. Ordering Provider: KIKO HIGGINS Report Released Date/Time: Aug 20, 2023 11:52 AM Reporting Lab: [facility] [address] [facility] [address] Performing Lab: [facility] [address] [facility] [address] GLUCOSE 108 mg/dL H 65-100 Aug 20, 2023 11:55 AM [facility] CREATININE EGFR PROFILE Specimen Type: SERUM No comment entered. Ordering Provider: KIKO HIGGINS Report Released Date/Time: Aug 20, 2023 11:52 AM Reporting Lab: [facility] [address] [facility] [phone] Performing Lab: [facility] [address] [facility] [phone] CREATININE 0.86 mg/dL 0.5-1.5 eGFR(CKD-EPI 2020) >90 mL/min >90 Aug 20, 2023 11:55 AM [facility] PANEL, ELECTROLYTE/SERUM Specimen Type: SERUM No comment entered. Ordering Provider: KIKO HIGGINS Report Released Date/Time: Aug 20, 2023 11:52 AM Reporting Lab: [facility] [address] [facility] [phone] Performing Lab: [facility] [address] [facility] [phone] SODIUM 136 meq/L 135-145 POTASSIUM 3.5 meq/L 3.5-5.0 CHLORIDE 100 meq/L 100-110 CARBON DIOXIDE CONTENT 25 meq/L 20-30 ANION-GAP 11 meq/L 6-12 Aug 20, 2023 11:55 AM [facility] CALCIUM PROFILE Specimen Type: SERUM No comment entered. Ordering Provider: KIKO HIGGINS Report Released Date/Time: Aug 20, 2023 11:52 AM Reporting Lab: [facility] [address] [facility] [address] Performing Lab: [facility] [address] [facility] [address] CALCIUM 9.8 mg/dL 8.5-10.5 ALBUMIN 4.2 g/dL 3.5-5.0 CALCIUM, CORRECTED 9.6 mg/dL 8.5-10.5 Aug 20, 2023 11:55 AM [facility] ALKALINE PHOSPHATASE Specimen Type: SERUM No comment entered. Ordering Provider: KIKO HIGGINS Report Released Date/Time: Aug 20, 2023 11:52 AM Reporting Lab: [facility] [address] [facility] [phone] Performing Lab: [facility] [address] [facility] [phone] ALKALINE PHOSPHATASE 62 U/L 40-150 Aug 20, 2023 11:55 AM [facility] PROTEIN,TOTAL Specimen Type: SERUM No comment entered. Ordering Provider: KIKO HIGGINS Report Released Date/Time: Aug 20, 2023 11:52 AM Reporting Lab: [facility] [address] [facility] [address] Performing Lab: [facility] [address] [place] [phone] PROTEIN,TOTAL 7.5 g/dL 6.0-8.5 Aug 20, 2023 11:55 AM [facility] BILIRUBIN PROFILE Specimen Type: SERUM No comment entered. Ordering Provider: KIKO HIGGISN Report Released Date/Time: Aug 20, 2023 11:52 AM Reporting Lab: [facility] [address] [facility] [address] Performing Lab: [facility] [address] [place] [phone] BILIRUBIN, TOTAL 0.6 mg/dL 0.2-1.2 Aug 20, 2023 11:55 AM [facility] ALT (SGPT) Specimen Type: SERUM No comment entered. Ordering Provider: KIKO HIGGINS Report Released Date/Time: Aug 20, 2023 11:52 AM Reporting Lab: [facility] [address] [facility] [phone] Performing Lab: [facility] [address] [place] [phone] ALT (SGPT) 54 U/L H 7-52 Aug 20, 2023 11:55 AM [facility] AST (SGOT) Specimen Type: SERUM No comment entered. Ordering Provider: KIKO HIGGINS Report Released Date/Time: Aug 20, 2023 11:52 AM Reporting Lab: [facility] [address] [facility] [phone] Performing Lab: [facility] [address] [place] [phone] AST (SGOT) 26 U/L 5-40 Aug 20, 2023 11:55 AM [facility] CBC (INC. MACHINE DIFF) Specimen Type: BLOOD No comment entered. Ordering Provider: KIKO HIGGINS Report Released Date/Time: Aug 20, 2023 11:52 AM Reporting Lab: [facility] [address] [facility] [phone] Performing Lab: [facility] [address] [facility] [phone] WBC 8.7 10*3/uL 4.5-11.0 RBC 4.65 10*6/uL [...] fL 38-53 Aug 20, 2023 11:55 AM [facility] MAGNESIUM Specimen Type: SERUM No comment entered. Ordering Provider: KIKO HIGGINS Report Released Date/Time: Aug 20, 2023 11:52 AM Reporting Lab: [facility] [address] [facility] [phone] Performing Lab: [address] [phone] MAGNESIUM 1.8 mg/dL 1.6-2.6 Vital Signs: All taken on the encounter date This section contains inpatient and outpatient Vital Signs collected on the date of the Encounter. Date/Time Temperature Pulse Blood Pressure Respiratory Rate SP02 Pain Height Weight Body Mass Index Source Aug 20, 2023 02:57 PM 62 134/100 16 99 [facility] Aug 20, 2023 01:09 PM 55 138/89 18 98 [facility] Aug 20, 2023 11:13 AM 97.5 65 152/100 16 97 253 [facility] Radiology Reports: +/- 30 days of the [...] the Encounter. The data comes from all [place] treatment facilities. Date/Time Radiology Report Provider Source Aug 20, 2023 12:[address] LUMBAR/SPINE W/ O: PAYTON FLORES [id number] -[id number] M Exm Date: AUG 20, 2023@12:17 Req Phys: KIKO HIGGINS Loc: [facility] (Req'g Loc) Img Loc: CT SCAN Service: [facility] , (Case [id number] COMPLETE) CT LUMBAR/SPINE W/O (CT Detailed) CPT:79125 Reason for Study: s/p fall Clinical History: R/O Diagnosis :fx s/p fall. now with pain in lower thoracic and upper lumbar pain. pt with recent lumbar laminectomy/fusion Report Status: Verified Date Reported: AUG 20, 2023 Date Verified: AUG 20, 2023 Scanner Supervisor E-Sig: Report: CT LUMBAR/SPINE W/O Clinical History: Status post fall Comparison: Plain films dated February 13, 2022 Technique: The study was protocoled and supervised at the local [place] facility. 8 series and 492 images were subsequently received by the [place] National Teleradiology Program (NTP) for interpretation. Thin [...] process fractures. READING PHYSICIAN: Chuck Pink M.D. -[id number] 08/20/2023 13:13 EDT [facility] National Teleradiology Program [phone] (For Medical Practitioner Use Only) Attention Patients / Veterans: If you have questions or concerns about these test results, please contact your ordering provider or primary care team. Primary Diagnostic Code: SIGNIFICANT ABNORMALITY, ATTN NEEDED Primary Interpreting Staff: OUTSIDE SERVICE RADIOLOGY, Staff Physician / RADIOLOGY,OUTSIDE SERVICE [facility] Aug 20, 2023 12:[address] THORAX W/O CONT : PAYTON FLORES [id number] -[id number] M Exm Date: AUG 20, 2023@12:17 Req Phys: KIKO HIGGINS Loc: [facility] (Req'g Loc) Img Loc: CT SCAN Service: [facility] , (Case [id number] COMPLETE) CT THORAX W/O CONT (CT Detailed) CPT:98340 Reason for Study: s/p fall Clinical History: R/O Diagnosis :fractures s/p fall onto left back . pain, , swelling abrasions noted to the left posterior back/lower ibs Report Status: Verified Date Reported: AUG 20, 2023 Date Verified: AUG 20, 2023 Scanner Supervisor E-Sig: Report: CT THORAX W/O CONT Clinical History: Falls and back with swelling and abrasions Comparison: No priors available Technique: The study was protocoled and supervised at the local [place] facility. 10 series and 684 images were subsequently received by the [place] National Teleradiology Program (NTP) for interpretation. Thin [...] lumbar imaging is not included in the ikjxx-ch-qels on this exam. READING PHYSICIAN: Chuck Pink M.D. -[id number] 08/20/2023 13:23 EDT [facility] National Teleradiology Program [phone] (For Medical Practitioner Use Only) Attention Patients / Veterans: If you have questions or concerns about these test results, please contact your ordering provider or primary care team. Primary Diagnostic Code: SIGNIFICANT ABNORMALITY, ATTN NEEDED Primary Interpreting Staff: OUTSIDE SERVICE RADIOLOGY, Staff Physician / RADIOLOGY,OUTSIDE SERVICE [facility] Encounter Notes: All associated encounter notes This section contains the clinical notes associated to the Encounter. Date/Time Encounter Note(s) Provider Source Aug 20, 2023 02:58 PM NURSING EMERGENCY DEPT NOTE: LOCATION: [facility] EMERGENCY VISIT DATE: AUG 20, 2023@11:12 LOCAL TITLE: [facility] NURSING RE-EVAL/DISCHARGE (C) STANDARD TITLE: NURSING EMERGENCY DEPT NOTE DATE OF NOTE: AUG 20, 2023@14:58 ENTRY DATE: AUG 20, 2023@14:58:37 AUTHOR: YOLY URBINA COSIGNER: URGENCY: STATUS: COMPLETED FINAL VITAL SIGNS: Blood pressure: 134/100 (08/20/2023 14:57) Temperature: 97.5 F [36.4 C] (08/20/2023 11:13) Pulse: 62 (08/20/2023 14:57) Respiration: 16 (08/20/2023 14:57) Pulse Oximetry: 99% (08/20/2023 14:57) ED Provider Trev Higgins aware of blood pressure 134/100 at discharge. DISPOSITION: Discharged home Disposition date and time: Jul@15:30 IV Removed Discharge education: Performed by Provider Yunier to prosthetics/pharmacy. MODE OF TRANSPORT: Ambulatory Accompanied by: rush /rowena/ YOLY URBINA RN Signed: 08/20/2023 16:40 --- Interdisciplinary Note --- << Interdisciplinary Note >> LOCATION: [facility] EMERGENCY VISIT DATE: AUG 20, 2023@11:12 LOCAL TITLE: [facility] TRIAGE (P) STANDARD TITLE: EMERGENCY DEPT TRIAGE NOTE DATE OF NOTE: AUG 20, 2023@11:16 ENTRY DATE: AUG 20, 2023@11:16:22 AUTHOR: MASOOD RAMIREZ COSIGNER: URGENCY: STATUS: COMPLETED Emergency Department/Urgent Care Center Triage Patient age:58 Sex: MALE On arrival patient was: AMBULATORY Patient phone number: Allergies: No Allergy Assessment Subjective/Chief Complaint: pt states he lost his balance when he grabbed his boat seat and it moved; states he fell onto the center console on the boat injuring the L posterior rib/back area; c/o burning sensation; pt also complains of dizzy spells x 2wks; and I have that catapillar rash every x Sat Objective: The patient is not a fall risk. Vital Signs * Date Vital Measurement Qualifiers 08/20/2023 11:13 Temp F (C) 97.5 (36.4) Pulse 65 Brachial Respir 16 BP 152/100 Wt lbs (kg)[BMI] 253 (114.76) POx (L/Min)(%) 97 Emergency Severity Index (MARIA ANTONIA) level Level 3 Current Medications: This medication list is for patient use only. This list should not be used to complete a medication review or medication reconciliation. Medications listed below may include CLINIC medications or infusions (ACTIVE or PENDING). These types of medications are given while in an office/clinic setting. (THEY ARE NOT TAKEN AT HOME) Active and Recently Outpatient Medications (including Supplies): No Medications Found Active Clinic Medications (excluding Supplies): No Medications Found Active Medications from Remote Data NOTE: Remote meds display is limited to those items matched to National Drug File at the originating site. IBUPROFEN 800MG TAB Sig: TAKE ONE TABLET BY MOUTH EVERY 8 HOURS NEEDED FOR PAIN TAKE WITH FOOD Quantity: 90 Days Supply: 30 Rx Expiration Date: 09/09/23 Last filled 11/10/22 at [facility] (Active) SILDENAFIL CITRATE 50MG TAB Sig: TAKE ONE TABLET BY MOUTH ONCE DAILY NEEDED TAKE 1 HOUR PRIOR TO SEXUAL ACTIVITY Quantity: 6 Days Supply: 30 Rx Expiration Date: 04/13/24 Last filled 08/15/23 at [facility] (Active) LIDOCAINE 5% PATCH Sig: APPLY 1 PATCH TOPICALLY ONCE DAILY FOR NERVE PAIN (LEAVE PATCH ON FOR 12 HOURS, THEN REMOVE PATCH) Quantity: 30 Days Supply: 30 Rx Expiration Date: 10/23/23 Last filled 06/21/23 at [facility] (Active) ACETAMINOPHEN 325MG TAB Sig: TAKE TWO TABLETS BY MOUTH EVERY 4 HOURS NEEDED FOR PAIN Quantity: 200 Days Supply: 30 Rx Expiration Date: 04/13/24 Last filled 08/15/23 at [facility] (Active) Does patient have own meds? No Current Problems: None Suicide Screen: [place] Suicide Severity Rating Scale (C-SSRS) screener 1. Over the past month, have you wished you were or wished you could go to sleep and not wake up? No 2. Over the past month, have you had any actual thoughts of killing yourself? No 3. Over the past month, have you been thinking about how you might do this? Response not required due to responses to other questions. 4. Over the past month, have you had these thoughts and had some intention of acting on them? Response not required due to responses to other questions. 5. Over the past month, have you started to work out or worked out the details of how to kill yourself? Response not required due to responses to other questions. 6. If yes, at any time in the past month did you intend to carry out this plan? Response not required due to responses to other questions. 7. In your lifetime, have you ever done anything, started to do anything, or prepared to do anything to end your life (for example, collected pills, obtained a gun, gave away valuables, went to the roof but didn't jump)? No 8. If YES, was this within the past 3 months? Response not required due to responses to other questions. /rowena/ MOLINA Delgado, RN Emergency Room RN Signed: 08/20/2023 11:20 << Interdisciplinary Note - Cont. >> LOCAL TITLE: [facility] NURSING INTERVENTIONS (C) STANDARD TITLE: NURSING EMERGENCY DEPT NOTE DATE OF NOTE: AUG 20, 2023@12:07 STATUS: COMPLETED IV Established: IV Line Insertion and Maintenance Peripheral IV Line #1: Insertion: Date/Time: Jul@11:50 Inserted by (name): shalonda urbina rn Location: Left, Antecubital Gauge: 20 Comment: blood drawn from initial iv start. /rowena/ YOLY URBINA RN Signed: 08/20/2023 12:09 << Interdisciplinary Note - Cont. >> LOCAL TITLE: [facility] NURSING INTERVENTIONS (C) STANDARD TITLE: NURSING EMERGENCY DEPT NOTE DATE OF NOTE: AUG 20, 2023@12:13 STATUS: COMPLETED Cardiovascular Interventions: EKG obtained, given to provider CA. Time obtained: 11:53. /rowena/ MICHELLE WU CNA Signed: 08/20/2023 12:14 << Interdisciplinary Note - Cont. >> LOCAL TITLE: [facility] NURSING ASSESSMENT (C) STANDARD TITLE: NURSING EMERGENCY DEPT NOTE DATE OF NOTE: AUG 20, 2023@12:19 STATUS: COMPLETED RESPIRATORY: no cough, no shortness of breath. Breathing: AIRWAY: ------- Depth: Normal Rhythm: Regular Effort: Normal Anterior LS: Left Upper Lobe: Clear Right Upper Lobe: Clear Posterior LS: Left Upper Lobe: Clear Left Lower Lobe: Clear Right Upper Lobe: Clear Right Middle Lobe: Clear Right Lower Lobe: Clear CARDIOVASCULAR: intermittent dizziness x 2 weeks, worsening with position changes. no chest pain. Pulses: Left Radial: Palpable Right Radial: Palpable Heart Sounds: Regular Patient reports: Dizziness INTEGUMENTARY: generalized body rash. MUSCULOSKELETAL: left flank pain following a fall last night. abrasion noted to left flank region, no bruising. /rowena/ YOLY URBINA RN Signed: 08/20/2023 12:26 << Interdisciplinary Note - Cont. >> LOCAL TITLE: [facility] NURSING RE-EVAL/DISCHARGE (C) STANDARD TITLE: NURSING EMERGENCY DEPT NOTE DATE OF NOTE: AUG 20, 2023@14:58 STATUS: COMPLETED FINAL VITAL SIGNS: Blood pressure: 134/100 (08/20/2023 14:57) Temperature: 97.5 F [36.4 C] (08/20/2023 11:13) Pulse: 62 (08/20/2023 14:57) Respiration: 16 (08/20/2023 14:57) Pulse Oximetry: 99% (08/20/2023 14:57) ED Provider Trev Higgins aware of blood pressure 134/100 at discharge. DISPOSITION: Discharged home Disposition date and time: Jul@15:30 IV Removed Discharge education: Performed by Provider Yunier to prosthetics/pharmacy. MODE OF TRANSPORT: Ambulatory Accompanied by: rush /rowena/ YOLY URBINA RN Signed: 08/20/2023 16:40 YOLY URBINA [facility] Aug 20, 2023 12:19 PM NURSING EMERGENCY DEPT NOTE: LOCATION: [facility] EMERGENCY VISIT DATE: AUG 20, 2023@11:12 LOCAL TITLE: [facility] NURSING ASSESSMENT (C) STANDARD TITLE: NURSING EMERGENCY DEPT NOTE DATE OF NOTE: AUG 20, 2023@12:19 ENTRY DATE: AUG 20, 2023@12:19:16 AUTHOR: YOLY URBINA EXP COSIGNER: URGENCY: STATUS: COMPLETED RESPIRATORY: no cough, no shortness of breath. Breathing: AIRWAY: ------- Depth: Normal Rhythm: Regular Effort: Normal Anterior LS: Left Upper Lobe: Clear Right Upper Lobe: Clear Posterior LS: Left Upper Lobe: Clear Left Lower Lobe: Clear Right Upper Lobe: Clear Right Middle Lobe: Clear Right Lower Lobe: Clear CARDIOVASCULAR: intermittent dizziness x 2 weeks, worsening with position changes. no chest pain. Pulses: Left Radial: Palpable Right Radial: Palpable Heart Sounds: Regular Patient reports: Dizziness INTEGUMENTARY: generalized body rash. MUSCULOSKELETAL: left flank pain following a fall last night. abrasion noted to left flank region, no bruising. /rowena/ YOLY URBINA RN Signed: 08/20/2023 12:26 --- Interdisciplinary Note --- << Interdisciplinary Note >> LOCATION: [facility] EMERGENCY VISIT DATE: AUG 20, 2023@11:12 LOCAL TITLE: [facility] TRIAGE (P) STANDARD TITLE: EMERGENCY DEPT TRIAGE NOTE DATE OF NOTE: AUG 20, 2023@11:16 ENTRY DATE: AUG 20, 2023@11:16:22 AUTHOR: MASOOD RAMIREZ COSIGNER: URGENCY: STATUS: COMPLETED Emergency Department/Urgent Care Center Triage Patient age:58 Sex: MALE On arrival patient was: AMBULATORY Patient phone number: Allergies: No Allergy Assessment Subjective/Chief Complaint: pt states he lost his balance when he grabbed his boat seat and it moved; states he fell onto the center console on the boat injuring the L posterior rib/back area; c/o burning sensation; pt also complains of dizzy spells x 2wks; and I have that catapillar rash every x Sat Objective: The patient is not a fall risk. Vital Signs * Date Vital Measurement Qualifiers 08/20/2023 11:13 Temp F (C) 97.5 (36.4) Pulse 65 Brachial Respir 16 BP 152/100 Wt lbs (kg)[BMI] 253 (114.76) POx (L/Min)(%) 97 Emergency Severity Index (MARIA ANTONIA) level Level 3 Current Medications: This medication list is for patient use only. This list should not be used to complete a medication review or medication reconciliation. Medications listed below may include CLINIC medications or infusions (ACTIVE or PENDING). These types of medications are given while in an office/clinic setting. (THEY ARE NOT TAKEN AT HOME) Active and Recently Outpatient Medications (including Supplies): No Medications Found Active Clinic Medications (excluding Supplies): No Medications Found Active Medications from Remote Data NOTE: Remote meds display is limited to those items matched to National Drug File at the originating site. IBUPROFEN 800MG TAB Sig: TAKE ONE TABLET BY MOUTH EVERY 8 HOURS NEEDED FOR PAIN TAKE WITH FOOD Quantity: 90 Days Supply: 30 Rx Expiration Date: 09/09/23 Last filled 11/10/22 at [facility] (Active) SILDENAFIL CITRATE 50MG TAB Sig: TAKE ONE TABLET BY MOUTH ONCE DAILY NEEDED TAKE 1 HOUR PRIOR TO SEXUAL ACTIVITY Quantity: 6 Days Supply: 30 Rx Expiration Date: 04/13/24 Last filled 08/15/23 at [facility] (Active) LIDOCAINE 5% PATCH Sig: APPLY 1 PATCH TOPICALLY ONCE DAILY FOR NERVE PAIN (LEAVE PATCH ON FOR 12 HOURS, THEN REMOVE PATCH) Quantity: 30 Days Supply: 30 Rx Expiration Date: 10/23/23 Last filled 06/21/23 at [facility] (Active) ACETAMINOPHEN 325MG TAB Sig: TAKE TWO TABLETS BY MOUTH EVERY 4 HOURS NEEDED FOR PAIN Quantity: 200 Days Supply: 30 Rx Expiration Date: 04/13/24 Last filled 08/15/23 at [facility] (Active) Does patient have own meds? No Current Problems: None Suicide Screen: [place] Suicide Severity Rating Scale (C-SSRS) screener 1. Over the past month, have you wished you were or wished you could go to sleep and not wake up? No 2. Over the past month, have you had any actual thoughts of killing yourself? No 3. Over the past month, have you been thinking about how you might do this? Response not required due to responses to other questions. 4. Over the past month, have you had these thoughts and had some intention of acting on them? Response not required due to responses to other questions. 5. Over the past month, have you started to work out or worked out the details of how to kill yourself? Response not required due to responses to other questions. 6. If yes, at any time in the past month did you intend to carry out this plan? Response not required due to responses to other questions. 7. In your lifetime, have you ever done anything, started to do anything, or prepared to do anything to end your life (for example, collected pills, obtained a gun, gave away valuables, went to the roof but didn't jump)? No 8. If YES, was this within the past 3 months? Response not required due to responses to other questions. /rowena/ MOLINA Delgado, RN Emergency Room RN Signed: 08/20/2023 11:20 << Interdisciplinary Note - Cont. >> LOCAL TITLE: [facility] NURSING INTERVENTIONS (C) STANDARD TITLE: NURSING EMERGENCY DEPT NOTE DATE OF NOTE: AUG 20, 2023@12:07 STATUS: COMPLETED IV Established: IV Line Insertion and Maintenance Peripheral IV Line #1: Insertion: Date/Time: Jul@11:50 Inserted by (name): shalonda urbina rn Location: Left, Antecubital Gauge: 20 Comment: blood drawn from initial iv start. /rowena/ YOLY URBINA RN Signed: 08/20/2023 12:09 << Interdisciplinary Note - Cont. >> LOCAL TITLE: [facility] NURSING INTERVENTIONS (C) STANDARD TITLE: NURSING EMERGENCY DEPT NOTE DATE OF NOTE: AUG 20, 2023@12:13 STATUS: COMPLETED Cardiovascular Interventions: EKG obtained, given to provider CA. Time obtained: 11:53. /ayse WU [employer] [place] Signed: 08/20/2023 12:14 << Interdisciplinary Note - Cont. >> LOCAL TITLE: [facility] NURSING ASSESSMENT (C) STANDARD TITLE: NURSING EMERGENCY DEPT NOTE DATE OF NOTE: AUG 20, 2023@12:19 STATUS: COMPLETED RESPIRATORY: no cough, no shortness of breath. Breathing: AIRWAY: ------- Depth: Normal Rhythm: Regular Effort: Normal Anterior LS: Left Upper Lobe: Clear Right Upper Lobe: Clear Posterior LS: Left Upper Lobe: Clear Left Lower Lobe: Clear Right Upper Lobe: Clear Right Middle Lobe: Clear Right Lower Lobe: Clear CARDIOVASCULAR: intermittent dizziness x 2 weeks, worsening with position changes. no chest pain. Pulses: Left Radial: Palpable Right Radial: Palpable Heart Sounds: Regular Patient reports: Dizziness INTEGUMENTARY: generalized body rash. MUSCULOSKELETAL: left flank pain following a fall last night. abrasion noted to left flank region, no bruising. /rowena/ YOLY URBINA RN Signed: 08/20/2023 12:26 YOLY URBINA [facility] Aug 20, 2023 12:13 PM NURSING EMERGENCY DEPT NOTE: LOCATION: [facility] V[facility] DATE: AUG 20, 2023@11:12 LOCAL TITLE: [facility] NURSING INTERVENTIONS (C) STANDARD TITLE: NURSING EMERGENCY DEPT NOTE DATE OF NOTE: AUG 20, 2023@12:13 ENTRY DATE: AUG 20, 2023@12:13:36 AUTHOR: MICHELLE WU EXP COSIGNER: URGENCY: STATUS: COMPLETED Cardiovascular Interventions: EKG obtained, given to provider CA. Time obtained: 11:53. /rowena/ MICHELLE BRYCE [employer] [place] Signed: 08/20/2023 12:14 --- Interdisciplinary Note --- << Interdisciplinary Note >> LOCATION: [facility] EMERGENCY VISIT DATE: AUG 20, 2023@11:12 LOCAL TITLE: [facility] TRIAGE (P) STANDARD TITLE: EMERGENCY DEPT TRIAGE NOTE DATE OF NOTE: AUG 20, 2023@11:16 ENTRY DATE: AUG 20, 2023@11:16:22 AUTHOR: MASOOD RAMIREZ COSIGNER: URGENCY: STATUS: COMPLETED Emergency Department/Urgent Care Center Triage Patient age:58 Sex: MALE On arrival patient was: AMBULATORY Patient phone number: Allergies: No Allergy Assessment Subjective/Chief Complaint: pt states he lost his balance when he grabbed his boat seat and it moved; states he fell onto the center console on the boat injuring the L posterior rib/back area; c/o burning sensation; pt also complains of dizzy spells x 2wks; and I have that catapillar rash every x Sat Objective: The patient is not a fall risk. Vital Signs * Date Vital Measurement Qualifiers 08/20/2023 11:13 Temp F (C) 97.5 (36.4) Pulse 65 Brachial Respir 16 BP 152/100 Wt lbs (kg)[BMI] 253 (114.76) POx (L/Min)(%) 97 Emergency Severity Index (MARIA ANTONIA) level Level 3 Current Medications: This medication list is for patient use only. This list should not be used to complete a medication review or medication reconciliation. Medications listed below may include CLINIC medications or infusions (ACTIVE or PENDING). These types of medications are given while in an office/clinic setting. (THEY ARE NOT TAKEN AT HOME) Active and Recently Outpatient Medications (including Supplies): No Medications Found Active Clinic Medications (excluding Supplies): No Medications Found Active Medications from Remote Data NOTE: Remote meds display is limited to those items matched to National Drug File at the originating site. IBUPROFEN 800MG TAB Sig: TAKE ONE TABLET BY MOUTH EVERY 8 HOURS NEEDED FOR PAIN TAKE WITH FOOD Quantity: 90 Days Supply: 30 Rx Expiration Date: 09/09/23 Last filled 11/10/22 at [facility] (Active) SILDENAFIL CITRATE 50MG TAB Sig: TAKE ONE TABLET BY MOUTH ONCE DAILY NEEDED TAKE 1 HOUR PRIOR TO SEXUAL ACTIVITY Quantity: 6 Days Supply: 30 Rx Expiration Date: 04/13/24 Last filled 08/15/23 at [facility] (Active) LIDOCAINE 5% PATCH Sig: APPLY 1 PATCH TOPICALLY ONCE DAILY FOR NERVE PAIN (LEAVE PATCH ON FOR 12 HOURS, THEN REMOVE PATCH) Quantity: 30 Days Supply: 30 Rx Expiration Date: 10/23/23 Last filled 06/21/23 at [facility] (Active) ACETAMINOPHEN 325MG TAB Sig: TAKE TWO TABLETS BY MOUTH EVERY 4 HOURS NEEDED FOR PAIN Quantity: 200 Days Supply: 30 Rx Expiration Date: 04/13/24 Last filled 08/15/23 at [facility] (Active) Does patient have own meds? No Current Problems: None Suicide Screen: [place] Suicide Severity Rating Scale (C-SSRS) screener 1. Over the past month, have you wished you were or wished you could go to sleep and not wake up? No 2. Over the past month, have you had any actual thoughts of killing yourself? No 3. Over the past month, have you been thinking about how you might do this? Response not required due to responses to other questions. 4. Over the past month, have you had these thoughts and had some intention of acting on them? Response not required due to responses to other questions. 5. Over the past month, have you started to work out or worked out the details of how to kill yourself? Response not required due to responses to other questions. 6. If yes, at any time in the past month did you intend to carry out this plan? Response not required due to responses to other questions. 7. In your lifetime, have you ever done anything, started to do anything, or prepared to do anything to end your life (for example, collected pills, obtained a gun, gave away valuables, went to the roof but didn't jump)? No 8. If YES, was this within the past 3 months? Response not required due to responses to other questions. /es/ MOLINA Delgado, RN Emergency Room RN Signed: 08/20/2023 11:20 << Interdisciplinary Note - Cont. >> LOCAL TITLE: [facility] NURSING INTERVENTIONS (C) STANDARD TITLE: NURSING EMERGENCY DEPT NOTE DATE OF NOTE: AUG 20, 2023@12:07 STATUS: COMPLETED IV Established: IV Line Insertion and Maintenance Peripheral IV Line #1: Insertion: Date/Time: Jul@11:50 Inserted by (name): shalonda urbina rn Location: Left, Antecubital Gauge: 20 Comment: blood drawn from initial iv start. /es/ YOLY URBINA RN Signed: 08/20/2023 12:09 << Interdisciplinary Note - Cont. >> LOCAL TITLE: [facility] NURSING INTERVENTIONS (C) STANDARD TITLE: NURSING EMERGENCY DEPT NOTE DATE OF NOTE: AUG 20, 2023@12:13 STATUS: COMPLETED Cardiovascular Interventions: EKG obtained, given to provider CA. Time obtained: 11:53. /rowena/ MICHELLE WU [employer] [place] Signed: 08/20/2023 12:14 MICHELLE WU [facility] Aug 20, 2023 12:07 PM NURSING EMERGENCY DEPT NOTE: LOCATION: [facility] VISIT DATE: AUG 20, 2023@11:12 LOCAL TITLE: [facility] NURSING INTERVENTIONS (C) STANDARD TITLE: NURSING EMERGENCY DEPT NOTE DATE OF NOTE: AUG 20, 2023@12:07 ENTRY DATE: AUG 20, 2023@12:07:35 AUTHOR: YOLY URBINA EXP COSIGNER: URGENCY: STATUS: COMPLETED IV Established: IV Line Insertion and Maintenance Peripheral IV Line #1: Insertion: Date/Time: Jul@11:50 Inserted by (name): shalonda urbina rn Location: Left, Antecubital Gauge: 20 Comment: blood drawn from initial iv start. /rowena/ YOLY URBINA RN Signed: 08/20/2023 12:09 --- Interdisciplinary Note --- << Interdisciplinary Note >> LOCATION: [facility] EMERGENCY VISIT DATE: AUG 20, 2023@11:12 LOCAL TITLE: [facility] TRIAGE (P) STANDARD TITLE: EMERGENCY DEPT TRIAGE NOTE DATE OF NOTE: AUG 20, 2023@11:16 ENTRY DATE: AUG 20, 2023@11:16:22 AUTHOR: MASOOD RAMIREZ COSIGNER: URGENCY: STATUS: COMPLETED Emergency Department/Urgent Care Center Triage Patient age:58 Sex: MALE On arrival patient was: AMBULATORY Patient phone number: Allergies: No Allergy Assessment Subjective/Chief Complaint: pt states he lost his balance when he grabbed his boat seat and it moved; states he fell onto the center console on the boat injuring the L posterior rib/back area; c/o burning sensation; pt also complains of dizzy spells x 2wks; and I have that catapillar rash every x Sat Objective: The patient is not a fall risk. Vital Signs * Date Vital Measurement Qualifiers 08/20/2023 11:13 Temp F (C) 97.5 (36.4) Pulse 65 Brachial Respir 16 BP 152/100 Wt lbs (kg)[BMI] 253 (114.76) POx (L/Min)(%) 97 Emergency Severity Index (MARIA ANTONIA) level Level 3 Current Medications: This medication list is for patient use only. This list should not be used to complete a medication review or medication reconciliation. Medications listed below may include CLINIC medications or infusions (ACTIVE or PENDING). These types of medications are given while in an office/clinic setting. (THEY ARE NOT TAKEN AT HOME) Active and Recently Outpatient Medications (including Supplies): No Medications Found Active Clinic Medications (excluding Supplies): No Medications Found Active Medications from Remote Data NOTE: Remote meds display is limited to those items matched to National Drug File at the originating site. IBUPROFEN 800MG TAB Sig: TAKE ONE TABLET BY MOUTH EVERY 8 HOURS NEEDED FOR PAIN TAKE WITH FOOD Quantity: 90 Days Supply: 30 Rx Expiration Date: 09/09/23 Last filled 11/10/22 at [facility] (Active) SILDENAFIL CITRATE 50MG TAB Sig: TAKE ONE TABLET BY MOUTH ONCE DAILY NEEDED TAKE 1 HOUR PRIOR TO SEXUAL ACTIVITY Quantity: 6 Days Supply: 30 Rx Expiration Date: 04/13/24 Last filled 08/15/23 at [facility] (Active) LIDOCAINE 5% PATCH Sig: APPLY 1 PATCH TOPICALLY ONCE DAILY FOR NERVE PAIN (LEAVE PATCH ON FOR 12 HOURS, THEN REMOVE PATCH) Quantity: 30 Days Supply: 30 Rx Expiration Date: 10/23/23 Last filled 06/21/23 at [facility] (Active) ACETAMINOPHEN 325MG TAB Sig: TAKE TWO TABLETS BY MOUTH EVERY 4 HOURS NEEDED FOR PAIN Quantity: 200 Days Supply: 30 Rx Expiration Date: 04/13/24 Last filled 08/15/23 at [facility] (Active) Does patient have own meds? No Current Problems: None Suicide Screen: [place] Suicide Severity Rating Scale (C-SSRS) screener 1. Over the past month, have you wished you were or wished you could go to sleep and not wake up? No 2. Over the past month, have you had any actual thoughts of killing yourself? No 3. Over the past month, have you been thinking about how you might do this? Response not required due to responses to other questions. 4. Over the past month, have you had these thoughts and had some intention of acting on them? Response not required due to responses to other questions. 5. Over the past month, have you started to work out or worked out the details of how to kill yourself? Response not required due to responses to other questions. 6. If yes, at any time in the past month did you intend to carry out this plan? Response not required due to responses to other questions. 7. In your lifetime, have you ever done anything, started to do anything, or prepared to do anything to end your life (for example, collected pills, obtained a gun, gave away valuables, went to the roof but didn't jump)? No 8. If YES, was this within the past 3 months? Response not required due to responses to other questions. /es/ MOLINA Delgado, RN Emergency Room RN Signed: 08/20/2023 11:20 << Interdisciplinary Note - Cont. >> LOCAL TITLE: [facility] NURSING INTERVENTIONS (C) STANDARD TITLE: NURSING EMERGENCY DEPT NOTE DATE OF NOTE: AUG 20, 2023@12:07 STATUS: COMPLETED IV Established: IV Line Insertion and Maintenance Peripheral IV Line #1: Insertion: Date/Time: Jul@11:50 Inserted by (name): shalonda urbina rn Location: Left, Antecubital Gauge: 20 Comment: blood drawn from initial iv start. /rowena/ YOLY URBINA RN Signed: 08/20/2023 12:09 YOLY URBINA [facility] Aug 20, 2023 11:58 AM PHYSICIAN EMERGENC Y DEPT NOTE: LOCAL TITLE: [facility] STANDARD TITLE: PHYSICIAN EMERGENCY DEPT NOTE DATE OF NOTE: AUG 20, 2023@11:58 ENTRY DATE: AUG 20, 2023@11:58:24 AUTHOR: KIKO HIGGINS COSIGNER: URGENCY: STATUS: COMPLETED 11. HISTORY AND PHYSICAL: HISTORIAN:Patient Chief Complaint:FALL S: This is a 58-year-old male status post fall on his boat that occurred last night while he was fishing. He tells me he lost his balance as he was attempting to remove a fish from the line that caused him to fall backwards over the boat seat and onto the center console striking his left mid to low back. He denies injury to his head or neck denies any LOC. Patient tells me that he took a muscle relaxant last night. At the time of his fall, he did not have any preceding episodes of lightheadedness, dizziness chest pains shortness of breath nausea or vomiting or other pains. Today, he comes in for evaluation of his pain. He denies having developed chest pain shortness of breath cough or hemoptysis lightheadedness or dizziness. He has not had any hematuria bowels have been normal. He denies any loss of bowel or bladder control, saddle anesthesia leg weakness. At the time of his fall he did complain of some mild burning sensation down his left leg. He does not have this today while in the emergency department. He denies any other new symptoms. Patient is status post low back surgery performed on 01/16/2023. patient underwent L5-S1 left foraminal decompression, minimally invasive transforaminal lumbar interbody fusion and percutaneous pedicle screw fixation performed at [facility] in [place] Patient also complains of a 2-week history of feeling dizziness . But tells me it had nothing to do with his fall last night. His dizziness is unrelated to other symptoms such as headache change or loss in vision, chest pains or shortness of breath or abdominal pain. He cannot tell me that it is a sensation of movement. He tells me that his mother perform the Ancelmo maneuver on him and he felt better. Patient has not had any recent episodes of viral syndrome respiratory illness etc. Patient also complains of a rash related to the brown tail moth caterpillar. He tells me it is itchy and is on his arms , chest and back. Patient is due to return to [place] in 3 days. PMHX-Reviewed in [facility] ProblemDescription Erectile dysfunction Hypertensive disorder, systemic arterial (disorder) Chronic post-traumatic stress disorder (disorder) Osteoarthritis (disorder) Hyperlipidemia (disorder) Meds- reviewed in [facility] ACETAMINOPHEN 325MG TAB SILDENAFIL CITRATE 50MG TAB LIDOCAINE 5% PATCH SILDENAFIL CITRATE 50MG TAB ACETAMINOPHEN 325MG TAB IBUPROFEN 800MG TAB LORATADINE TAB,ORAL, NON-VA (Patient/Family Reported) HYDROCHLOROTHIAZIDE/LISINOPRIL TAB, NON-VA (Patient/Family Reported) Allergies- reviewed in [facility] Allergen NO ALLERGY ASSESSMENT NO KNOWN ALLERGIES NO KNOWN ALLERGIES ROS- As above Medical Records Reviewed in [facility] O: Temp: 97.5 F [36.4 C] (08/20/2023 11:13) Pulse: 65 (08/20/2023 11:13) Resp: 16 (08/20/2023 11:13) BP: 152/100 (08/20/2023 11:13) Ht: Wgt: 253 lb [114.76 kg] (08/20/2023 11:13) BMI: BMI not available without height Pain Scale: Pt. is alert and oriented x 3 Vital signs reviewed HEENT- Head is normocephalic and atraumatic Eyes-PERRLA w/ EOMI, no conjuctivitis Ears- canals and TM's clear, no hemotympanum Nose- atrauamtic, patent Throat- clear, no erythema or exudate Neck- supple without adenopathy Heart-rrr without m/r/g Lungs- clear Abdomen-positive bowel sounds soft nontender no masses organomegaly are noted Chest wall-there is 2 small abrasions noted to the mid to lower posterior chest wall with mild edema present over the lower ribs. Ribs 10,11 and 12 have reproducible tenderness to palpation but without crepitus. Back-spine is nontender throughout the cervical thoracic or lumbar spine. Surgical scars appear to be healing well and he is nontender in the surgical area. Neuro-cranial nerves II through XII are intact cerebellar functions are normal. Straight leg test is negative bilaterally of his lower legs. Muscle strength is intact. Skin-multiple discrete macular papular erythematous lesions consistent with contact dermatitis brown tail moth. No cellulitis no vesicles or pustules noted. Course- EKG shows sinus bradycardia with a rate of 59. QT/QTc 420/415 Labs-Labs: Past 24 hours Accession: [id number] AUG 20, 2023@13:00 URINE COLOR Light-Yellow SPECIFIC GRAVITY (UA) 1.009 UROBILINOGEN <2.0 mg/dL URINE BLOOD Negative URINE BILIRUBIN Negative URINE KETONES Negative mg/dL URINE GLUCOSE Negative mg/dL URINE PROTEIN Negative mg/dL URINE PH 6.5 NITRITE, URINE Negative -/+ LEUKOCYTE ESTERASE, URINE Negative URINE CLARITY Clear Accession: [id number] AUG 20, 2023@11:55:02 WBC 8.7 K/cmm RBC 4.65 M/cmm HGB 14.1 g/dL HCT 43.0 % MCV 92.5 fL MCH 30.3 pg MCHC 32.8 g/dL RDW-CV 13.3 % PLT 265 K/cmm MPV 9.5 fL LYMPH % 20.3 % LYMPH, ABS 1.8 K/cmm EOSIN % 2.5 % BASO % 0.7 % NEUT, ABS 5.7 K/cmm MONO, ABS 0.8 K/cmm EOS, ABS 0.2 K/cmm BASO, ABS 0.1 K/cmm IG % 0.7 % IG, ABS 0.1 K/cmm NRBC% 0.0 % NRBC# 0.00 K/cmm RDW-SD 45.8 fL MONO % 9.6 % NEUT % 66.2 % 183 AUG 20, 2023@11:55:01 GLUCOSE 108 mg/dL UREA NITROGEN 18 mg/dL CREATININE 0.86 mg/dL SODIUM 136 mEq/L POTASSIUM 3.5 mEq/L CHLORIDE 100 mEq/L CARBON DIOXIDE CONTENT 25 mEq/L CALCIUM 9.8 mg/dL PROTEIN,TOTAL 7.5 g/dL ALBUMIN 4.2 g/dL BILIRUBIN, TOTAL 0.6 mg/dL AST (SGOT) 26 U/L ALT (SGPT) 54 U/L MAGNESIUM 1.8 mg/dL ALKALINE PHOSPHATASE 62 U/L CALCIUM, CORRECTED 9.6 mg/dL ANION-GAP 11 mEQ/L eGFR(CKD-EPI 2020) >90 mL/min Accession: [id number] AUG 20, 2023@11:55 INR 1.0 RATIO PT/inr 11.4 SEC PTT 30.[address] scans-CT THORAX W/O CONT Exm Date: AUG 20, 2023@12:17 Req Phys: RAMIROJumanaKIKO Samantha Loc: [facility] (Req'g Loc) Img Loc: CT SCAN Service: Unknown [facility] , (Case [id number] COMPLETE) CT THORAX W/O CONT (CT Detailed) CPT:02492 Reason for Study: s/p fall Clinical History: R/O Diagnosis :fractures s/p fall onto left back . pain, , swelling abrasions noted to the left posterior back/lower ibs Report Status: Verified Date Reported: AUG 20, 2023 Date Verified: AUG 20, 2023 Scanner Supervisor E-Sig: Report: CT THORAX W/O CONT Clinical History: Falls and back with swelling and abrasions Comparison: No priors available Technique: The study was protocoled and supervised at the local [place] facility. 10 series and 684 images were subsequently received by the [place] [facility] (NTP) for interpretation. Thin [...] lumbar imaging is not included in the [id number] on this exam. READING PHYSICIAN: Chuck Pink M.D. -[id number] 08/20/2023 13:23 EDT [facility] National Teleradiology Program [phone] (For Medical Practitioner Use Only) Attention Patients / Veterans: If you have questions or concerns about these test results, please contact your ordering provider or primary care team. Primary Diagnostic Code: SIGNIFICANT ABNORMALITY, ATTN NEEDED Primary Interpreting Staff: OUTSIDE SERVICE RADIOLOGY, Staff Physician / CT LUMBAR/SPINE W/O Exm Date: AUG 20, 2023@12:17 Req Phys: KIKO HIGGINS Loc: [facility] (Req'g Loc) Img Loc: CT SCAN Service: [facility] , (Case [id number] COMPLETE) CT LUMBAR/SPINE W/O (CT Detailed) CPT:74791 Reason for Study: s/p fall Clinical History: R/O Diagnosis :fx s/p fall. now with pain in lower thoracic and upper lumbar pain. pt with recent lumbar laminectomy/fusion Report Status: Verified Date Reported: AUG 20, 2023 Date Verified: AUG 20, 2023 Scanner Supervisor E-Sig: Report: CT LUMBAR/SPINE W/O Clinical History: Status post fall Comparison: Plain films dated February 13, 2022 Technique: The study was protocoled and supervised at the local [place] facility. 8 series and 492 images were subsequently received by the [place] [facility] (NTP) for interpretation. Thin [...] process fractures. READING PHYSICIAN: Chuck Pink M.D. -[id number] 08/20/2023 13:13 EDT [facility] [phone] (For Medical Practitioner Use Only) Attention Patients / Veterans: If you have questions or concerns about these test results, please contact your ordering provider or primary care team. Primary Diagnostic Code: SIGNIFICANT ABNORMALITY, ATTN NEEDED Primary Interpreting Staff: OUTSIDE SERVICE RADIOLOGY, Staff Physician I spoke with Ximena from [facility] neurosurgery team, who reviewed imaging with neurosurgeron. recommendation are nonsurgical, back brace, pain management and follow up with his neurosurgeon. I spent an extended amount of time reviewing the CT scan findings with the patient, recommendations from neurosurgery and need for close follow-up with his back surgeon when he returns home to [place]. I reviewed lab findings with him as well. I discussed with him that I am not certain as to the cause of his ongoing but nonrelated complaint of dizziness. The 2 do not correlate to his fall resulting in his current injuries. Pt.CSSRS triage screen NEGATIVE- I personally verified with pt. 12. DIAGNOSTIC IMPRESSION: A:L 2-3 transverse vertebral body fractures left rib # 12 fracture contact dermatitis Unrelated dizziness-uncertain etiology. Labs and EKG reassuring Overall the patient appears well and stable and can go home. I spent quite a bit of time speaking with him and answering all of his questions to the best of my ability. I did offer reassurance that his current fractures are stable. He verbalizes an understanding for the need for close clinical follow-up with his back specialist. In addition a follow-up with his primary care provider when he returns home. He also verbalized an understanding of scenarios for which she made need to return back to the emergency department immediately such as increased pain difficulty breathing shortness of breath saddle anesthesia loss of bowel or bladder control or any other concerns. For his rash contact dermatitis from a brown tail moth caterpillar, I have ordered the pharmacy brown tail moth caterpillar mixture. Pain management was also discussed. Patient does not want narcotics and I feel that this is reasonable. I encouraged him to take Tylenol and use of Flexeril as needed. 13. PLAN: SEE D/C INSTRUCTIONS 14. CONDITION: Unchanged DISPOSITION: Discharged Home 15. Patient Education provided by: Discussion and written /rowena/ MERRITT BRANDON Signed: 08/20/2023 15:50 [facility]IGGINS [facility] Aug 20, 2023 11:16 AM EMERGENCY DEPT TRI AGE NOTE: LOCAL TITLE: THAD TRIAGE (P) STANDARD TITLE: EMERGENCY DEPT TRIAGE NOTE DATE OF NOTE: AUG 20, 2023@11:16 ENTRY DATE: AUG 20, 2023@11:16:22 AUTHOR: MASOOD RAMIREZ COSIGNER: URGENCY: STATUS: COMPLETED Emergency Department/Urgent Care Center Triage Patient age:58 Sex: MALE On arrival patient was: AMBULATORY Patient phone number: Allergies: No Allergy Assessment Subjective/Chief Complaint: pt states he lost his balance when he grabbed his boat seat and it moved; states he fell onto the center console on the boat injuring the L posterior rib/back area; c/o burning sensation; pt also complains of dizzy spells x 2wks; and I have that catapillar rash every x Sat Objective: The patient is not a fall risk. Vital Signs * Date Vital Measurement Qualifiers 08/20/2023 11:13 Temp F (C) 97.5 (36.4) Pulse 65 Brachial Respir 16 BP 152/100 Wt lbs (kg)[BMI] 253 (114.76) POx (L/Min)(%) 97 Emergency Severity Index (MARIA ANTONIA) level Level 3 Current Medications: This medication list is for patient use only. This list should not be used to complete a medication review or medication reconciliation. Medications listed below may include CLINIC medications or infusions (ACTIVE or PENDING). These types of medications are given while in an office/clinic setting. (THEY ARE NOT TAKEN AT HOME) Active and Recently Outpatient Medications (including Supplies): No Medications Found Active Clinic Medications (excluding Supplies): No Medications Found Active Medications from Remote Data NOTE: Remote meds display is limited to those items matched to National Drug File at the originating site. IBUPROFEN 800MG TAB Sig: TAKE ONE TABLET BY MOUTH EVERY 8 HOURS NEEDED FOR PAIN TAKE WITH FOOD Quantity: 90 Days Supply: 30 Rx Expiration Date: 09/09/23 Last filled 11/10/22 at [facility] (Active) SILDENAFIL CITRATE 50MG TAB Sig: TAKE ONE TABLET BY MOUTH ONCE DAILY NEEDED TAKE 1 HOUR PRIOR TO SEXUAL ACTIVITY Quantity: 6 Days Supply: 30 Rx Expiration Date: 04/13/24 Last filled 08/15/23 at [facility] (Active) LIDOCAINE 5% PATCH Sig: APPLY 1 PATCH TOPICALLY ONCE DAILY FOR NERVE PAIN (LEAVE PATCH ON FOR 12 HOURS, THEN REMOVE PATCH) Quantity: 30 Days Supply: 30 Rx Expiration Date: 10/23/23 Last filled 06/21/23 at [facility] (Active) ACETAMINOPHEN 325MG TAB Sig: TAKE TWO TABLETS BY MOUTH EVERY 4 HOURS NEEDED FOR PAIN Quantity: 200 Days Supply: 30 Rx Expiration Date: 04/13/24 Last filled 08/15/23 at [facility] (Active) Does patient have own meds? No Current Problems: None Suicide Screen: [place] Suicide Severity Rating Scale (C-SSRS) screener 1. Over the past month, have you wished you were or wished you could go to sleep and not wake up? No 2. Over the past month, have you had any actual thoughts of killing yourself? No 3. Over the past month, have you been thinking about how you might do this? Response not required due to responses to other questions. 4. Over the past month, have you had these thoughts and had some intention of acting on them? Response not required due to responses to other questions. 5. Over the past month, have you started to work out or worked out the details of how to kill yourself? Response not required due to responses to other questions. 6. If yes, at any time in the past month did you intend to carry out this plan? Response not required due to responses to other questions. 7. In your lifetime, have you ever done anything, started to do anything, or prepared to do anything to end your life (for example, collected pills, obtained a gun, gave away valuables, went to the roof but didn't jump)? No 8. If YES, was this within the past 3 months? Response not required due to responses to other questions. /rowena/ MOLINA Delgado, RN Emergency Room RN Signed: 08/20/2023 11:20 MASOOD RAMIREZ [facility]
[2024-04-19 10:16] LABS: MANUAL DIFF FLAG NO
[2024-04-19 10:22] LABS: Basophils Absolute Auto 0.1 X10*3/uL (0.0-0.2); Basophils Percent Auto 0.9 % (0-2); Eosinophils Absolute Auto 0.2 X10*3/uL (0.0-0.4); Eosinophils Percent Auto 3.3 % (0-4); Hemoglobin 14.7 g/dl (14.0-18.0); Imm Gran Abs Auto 0.02 X10*3/uL (0.00-0.03); Imm Gran Pct Auto 0.3 % (0.0-0.4); Lymphocytes Absolute Auto 1.6 X10*3/uL (1.2-4.9); Lymphocytes Percent Auto 25.2 % (20-40); Mean Corpuscular HGB Conc 33.4 g/dl (31.0-36.0); Mean Corpuscular Hemoglobin 30.1 pg (27.0-33.0); Mean Corpuscular Volume 90.2 fL (80.0-98.0); Mean Platelet Volume 9.2 fL (9.4-12.4); Monocytes Absolute Auto 0.6 X10*3/uL (0.1-1.2); Monocytes Percent Auto 9.2 % (2-11); Neutrophils Absolute Auto 3.9 x10*3/uL (2.0-8.3); Neutrophils Percent Auto 61.1 % (45-73); Platelet Count 261 X10*3/uL (160-400); Red Blood Count 4.88 X10*6/uL (4.60-5.80); Red Cell Distribution Width 13.7 % (11.0-16.0); White Blood Count 6.4 X10*3/uL (4.8-10.8)
[2024-04-19 10:54] LABS: Alanine Aminotransferase 49 U/L (0-40); Albumin Level 4.7 g/dL (3.5-5.0); Alkaline Phosphatase 56 U/L (39-117); Anion Gap 13 (12-20); Aspartate Amino Transferase 24 U/L (5-37); Bilirubin Total 0.6 mg/dL (0.0-1.0); Blood Urea Nitrogen 19 mg/dL (9-16); Calcium 9.7 mg/dL (8.4-10.2); Carbon Dioxide 26 mmol/L (22-29); Chloride 103 mmol/L (96-108); Cholesterol 281 mg/dL (<200); Estimated Glomerular Filt Rate > 60; Glucose Fasting 124 mg/dL (60-99); HDL Cholesterol 47 mg/dL (>40); LDL Cholesterol Calculated 201 mg/dL (<100); Potassium 4.1 mmol/L (3.3-5.1); Sodium 138 mmol/L (135-145); Triglycerides 167 mg/dL (<150)
[2024-04-19 11:06] LABS: Prostate Specific Antigen Scr 1.97 ng/mL (<0.05-4.0)
[2024-04-19 11:49] LABS: Estimated Average Glucose 123 mg/dL; Hemoglobin A1C 151.9666 umol/L; Hemoglobin A1c % 5.9 % (<6.0); Total Hemoglobin (HGBA1C) 3708.0799 umol/L
== END 2024-04-19 07:25 | disposition home or self-care (01) ==
LOC: HO.10HDL 07:24
PROVIDERS: Visit Provider Internal Medicine
DX: Z12.5 Encounter for screening for malignant neoplasm of prostate (principal); I10 Essential (primary) hypertension; E78.00 Pure hypercholesterolemia, unspecified; R73.03 Prediabetes
CPT/HCPCS: 36415; 80053; 80061; 83036; 84153; 85025